=== PATIENT | male | born 1965 | race African-American/Black ===

== ENCOUNTER 2024-06-21 14:24 | Inpatient (IN) | payer OTHER, SELFPAY ==
--- NOTE | ~2024-06-21 | US_ITS ---
EXAMINATION: US abdomen limited DATE: 06/23/2024 08:42 INDICATION: Abnormal liver function tests. TECHNIQUE: Multiple grayscale and Doppler ultrasound images of the abdomen were obtained. COMPARISON: CT abdomen and pelvis 06/21/2024 FINDINGS: The visualized portions of the head, body, and tail of the pancreas are normal. The liver i s normal without focal lesion. There is normal flow in main portal vein. The gallbladder is contracte d and contains sludge. No definite gallstones. There is no sonographic Mtz's sign. The common duct is mildly dilated and measures 7 mm. IMPRESSION: 1. Mildly dilated common duct. Reviewed, dictated and finalized at location A. OP APPLICATION DEVELOPER
--- NOTE | ~2024-06-21 | MR_ITS ---
EXAMINATION: MR MRCP wo/w con/w 3D wo ind DATE: 06/23/2024 17:13 INDICATION: Abdominal pain. TECHNIQUE: Magnetic resonance imaging (MRI) of the abdomen was performed without and with 20 mL Multi Divine intravenous contrast. Sequences included coronal T2-weighted FS FSE, coronal T2-weighted FSE, a xial T1-weighted LAVA, coronal FS FIESTA, axial dual-echo T1-weighted SPGR, coronal lava-FLEX, sagitt al T2-weighted FSE, axial T2-weighted FSE, and axial DWI. Thick-slab T2-weighted FSE images were obta ined for magnetic resonance cholangiopancreatography (MRCP). Maximum intensity projection 3-D reconst ructions of the volumetric data were created by the technologist. Postcontrast sequences included cor onal LAVA-flex and time course of axial T1-weighted LAVA. COMPARISON: CT abdomen and pelvis 06/21/2024, abdomen ultrasound 06/23/2024 FINDINGS: ABDOMEN MRI: There are small pleural effusions. The liver is normal. The gallbladder is contracted. T he spleen is normal. There is edema around the pancreas, consistent with acute interstitial pancreati tis. The adrenal glands are normal. There are cysts in the kidneys measuring up to 3 mm. There are no pathologically enlarged lymph nodes. There is no free intraperitoneal fluid. There are no dilated lo ops of bowel. ABDOMEN MRCP: The common duct is normal and measures 2 mm. No choledocholithiasis. IMPRESSION: 1. Acute interstitial pancreatitis. 2. Small pleural effusions. Reviewed, dictated and finalized at location A. BLOCKER
--- NOTE | ~2024-06-21 | CT_ITS ---
EXAMINATION: CT abdomen pelvis w con DATE: 06/21/2024 16:33 INDICATION: abd pain, elevated LFTs TECHNIQUE: Computed tomography (CT) of the abdomen and pelvis was performed with 100 mL Omnipaque-350 intravenous contrast. Automated exposure control and iterative reconstruction technique were employe d. The dose-length product was 1454.96 mGy-cm. COMPARISON: None. FINDINGS: Lower thorax: Bilateral dependent scar/atelectasis. Liver: Normal. Biliary/Gallbladder: Gallbladder wall hyperemia. The gallbladder is contracted. Mild pericholecystic stranding. No bile duct dilation. Pancreas: Mild peripancreatic fat stranding. No mass or duct dilation. Spleen: Normal. Adrenals:No mass. Kidneys: No suspicious mass, obstructing stone, or hydronephrosis. GI tract: Mild distal esophageal and gastric wall edema. No small or large bowel dilation. Normal mari endix. Mesentery/Peritoneum: No ascites, mass, or free air. Retroperitoneum: No mass. Pelvis: Distended urinary bladder with mild wall thickening. Prostatomegaly. Soft Tissues: Small uncomplicated fat-containing umbilical and left inguinal hernias. Bones: No acute osseous finding. IMPRESSION: Mild esophagitis/gastritis. Suggestion of mild gallbladder inflammatory change, correlate with biliary labs. Mild peripancreatic and upper mesenteric fat stranding, may reflect a component of pancreatitis. Jose Manuel elate with pancreatic labs. Cystitis versus chronic urinary bladder wall thickening from outlet obstruction. Reviewed, dictated and finalized at location K. RVISOR FABRICATION AND ASSEMBLY IMPRESSION: Mild esophagitis/gastritis. Suggestion of mild gallbladder inflammatory change, correlate with biliary labs . Mild peripancreatic and upper mesenteric fat stranding, may reflect a component of pancreatitis. Correlate with pancreatic labs. Cystitis versus chronic urinary bladder wall thickening from outlet obstruction .
[2024-06-21 14:29] VITALS: BP 154/88; PULSE 107; RESP 20; TEMP 37.7; O2SAT 99
[2024-06-21] MEDS: LACTATED RINGERS 1,000 ML 999 ML IV CONT ×2 (14:59)
--- NOTE | 2024-06-21 15:02 | ED.ABDPAIN ---
HPI - Abdominal Pain General Chief Complaint: Abdominal Pain Stated Complaint: I am dehydrated abd pain, dry mouth Time Seen by Provider: 06/21/24 14:41 History of Present Illness HPI narrative: 58-year-old male with a past medical history including hypertension, obstructive sleep apnea, GERD. 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 He presents to the ED with complaints of dry mouth, dehydration, darkening urine. He states he has been having some abdominal bloating and constipation but he took some laxatives yesterday and this has resolved and he is having normal bowel movements now. He has not seen medical attention over a year, no changes to his medications which include lisinopril and Nexium. Denies any drinking, denies any substance use, no smoking. Presently states he just feels dehydrated denies any headache, vision change, nausea, vomiting, abdominal pain, bloating, diarrhea, constipation no dysuria or hematuria. Related Data Allergies Allergy/AdvReac Type Severity Reaction Status Date / Time No Known Allergies Allergy Verified 06/21/24 14:46 Review of Systems Review of Systems: As reviewed above in HPI Exam Narrative: GENERAL: [Well-appearing, well-nourished, and in no acute distress.] HEAD: [Normocephalic, atraumatic.] EYES: [PERRLA and EOMI.] Corneal arcus is noted bilaterally, mild yellowing to the eyes ENT: Nares clear, no rhinorrhea or epistaxis. Mucous membranes moist. NECK: Supple. CHEST: [Clear to auscultation. No respiratory distress.] HEART: [Regular rate and rhythm]. No murmur heard. [Normal peripheral pulses.] ABDOMEN: Protuberant but soft abdomen, tympanic to percussion, [nontender], [No rigidity or guarding] EXTREMITIES: Normal range of motion. [No edema.] SKIN: Warm, dry, no rash. NEURO: [No focal deficits]. Alert and oriented [x3.] PSYCH: [Normal mood and affect.] Course Vital Signs Vital signs: Vital Signs Temperature 37.7 C H 06/21/24 14:29 Pulse Rate 107 H 06/21/24 14:29 Respiratory Rate 20 06/21/24 14:29 Blood Pressure 154/88 H 06/21/24 14:29 Pulse Oximetry 99 06/21/24 14:29 Oxygen Delivery Room Air 06/21/24 14:29 Temperature 37.7 C H 06/21/24 14:29 Pulse Rate 91 06/21/24 18:16 Respiratory Rate 20 06/21/24 18:16 Blood Pressure 146/74 H 06/21/24 18:16 Pulse Oximetry 99 06/21/24 18:16 Oxygen Delivery Room Air 06/21/24 14:29 MDM - Abdominal Pain MDM Narrative Medical decision making narrative: 58-year-old male with history of hypertension, GERD, DOUGLAS. He presents with feeling dehydrated for last several days. Previously had some abdominal distension and bloating from constipation but this resolved yesterday after taking some laxatives. No longer having any abdominal discomfort, nausea vomiting. States he has been having some darkening urine over the last few days and feeling dehydrated with dry mucous membranes and lips. Is slightly tachycardic with a pulse of 107, does have dry membranes on examination, he is afebrile with no significant blood pressure concerns or tachypnea/hypoxia. Protuberant but soft abdomen, corneal arcus noted on examination likely secondary to chronic hyperlipidemia and some yellowing. Differential includes electrolyte derangements, dehydration, intravascular volume depletion, DELVIN, liver injury, cirrhosis, hepatitis. Workup was ordered including CBC, CMP, lipase, urinalysis. Fluid boluses were provided. Laboratory studies showed leukocytosis of 24k, anemia of 12.4 with no baseline. Thrombocytosis of 402. Coagulation studies within normal limits, mild electrolyte deficiency including potassium 2.9, hyponatremia hypochloremia likely secondary dehydration. Normal BUN and creatinine, normal glucose, LFTs with derangements including elevated ALT of 102, alk-phos 324, lipase 3115. Bilirubin is 6.5 with no baseline. Urinalysis with ketones, blood and bilirubin but no bacteria, red blood cells and trace white cells in the no convincing signs of urinary infection, likely bilirubin elevation from his circulation. Hepatitis panel was ordered this time and negative. COVID flu RSV swabs also negative. CT scan was ordered this time to evaluate for any possible causes such as bile duct dilatation, pancreatic masses, strictures or any other process. CT findings show mild esophagitis/gastritis, mild gallbladder inflammatory changes such as hyperemia on the wall but no distension, minimal pericholecystic stranding but no bile duct dilatation. Pancreas with mild peripancreatic fat stranding likely secondary to pancreatitis. Cystitis is seen. Patient was started on Zosyn to cover for possible infectious versus inflammatory process given the elevated white count. No overt signs of cholecystitis. I discussed the case with the on-call textile science technician Dr. Mcmahan. Recommendations at this time to rule out any kind of masses, strictures or other possible occlusive process with an endoscopic ultrasound which is not available here in this facility. Recommendations to transfer to outside hospital. Patient will be started on maintenance fluids and I discussed with him potential transfer process. Patient is comfortable with transfer. I spoke to the [facility] transfer line, currently awaiting consultation with their GI team for possible transfer. Spoke to Dr. Meza from [facility] who thinks the patient would benefit from endoscopic ultrasound and transfer. Recommendations to transfer to the general medicine service. Spoke to Dr. Sands from the medicine service at [facility] and we went over the patient's care together. Patient was accepted as a direct transfer to a general medicine floor at this time pending bed availability. Paperwork was filled out, patient was placed on maintenance IV fluids and antibiotics and will remain in the emergency department pending transfer process. Patient was made aware of this and comfortable with the plan of care. P.r.n. medications are placed. Medical Records Attestation: I reviewed the patient's medical records. Lab Data Attestation: I reviewed the patient's lab results. 06/21/24 14:54 06/21/24 14:54 Labs: Lab Results 06/21/24 06/21/24 06/21/24 Range/Units 14:54 14:54 15:47 WBC 21.4 H (4.5-10.0) K/mm3 RBC 5.79 (4.6-6.20) M/mm3 Hgb 12.4 L (14.0-18.0) g/dL Hct 36.7 L (42.0-52.0) % MCV 63.4 L (80-100) fl MCH 21.4 L (26-34) pg MCHC 33.8 (32-36) g/dl RDW 14.8 H (11.5-14.5) % Plt Count 402 H (150-375) k/mm3 MPV 10.1 (7.4-10.4) fl Immature Gran % (Auto) 1.1 H (0-0.5) % Neut % (Auto) 84.5 H (45.5-73.1) % Lymph % (Auto) 6.5 L (18.3-44.2) % [place] % (Auto) 7.5 (2.6-8.5) % Eos % (Auto) 0.2 (0-4.4) % Baso % (Auto) 0.2 (0.2-1.2) % Lymph # (Auto) 1.38 (0.9-3.2) K/mm3 [place] # (Auto) 1.6 H (0.1-0.6) K/mm3 Eos # (Auto) 0.0 (0-0.3) K/mm3 Baso # (Auto) 0.1 (0.0-0.1) K/mm3 Abs Immat Gran (auto) 0.24 H (0.00-0.031) K/mm3 Absolute Neuts (auto) 18.1 H (1.3-6.7) K/mm3 Absolute Nucleated RBC 0.000 (0.0-0.012) K/mm3 Nucleated RBC % 0.0 (0.0-0.2) % Platelet Estimate Increased (Adequate) Microcytosis 1+ (NORMAL) Target Cells 2+ Schistocytes None seen PT 14.2 (11.1-14.7) Seconds INR 1.1 APTT 33.9 (22.3-36.8) Seconds Sodium 134 L (137-145) mmol/L Potassium 2.9 L (3.4-5.0) mmol/L Chloride 93 L (98-107) mmol/L Carbon Dioxide 26 (22-30) mmol/L Anion Gap 15 H (4-12) mmol/L BUN 12 (9-20) mg/dL Creatinine 0.85 (0.7-1.3) mg/dL Estim Creat Clear Calc 109 ml/min Estimated GFR > 60 (59 - ) Glucose 110 (65-110) mg/dL Calcium 8.5 (8.4-10.2) mg/dL Magnesium 2.7 H Cancelled (1.6-2.3) mg/dL Total Bilirubin 6.5 H (0.2-1.3) mg/dL AST 56 (17-59) U/L ALT 102 H (6-50) U/L Alkaline Phosphatase 324 H (38-126) U/L Total Protein 8.0 (6.3-8.2) g/dL Albumin 3.6 (3.5-5.1) g/dL Triglycerides 121 (<150) mg/dL Lipase 3115 H (23-300) U/L Urine Color Dark yellow (Yellow) Urine Appearance Clear (Clear) Urine pH 7.0 (5.0-9.0) Ur Specific Chambers 1.016 (1.001-1.035) Urine Protein 2+ H (Negative) mg/dL Urine Glucose (UA) Negative (Negative) mg/dL Urine Ketones 1+ H (Negative) mg/dL Ur Blood (Man) 2+ H (Negative) Urine Nitrate Negative (Negative) Urine Bilirubin 3+ H (Negative) Urine Urobilinogen 1.0 (<2.0) mg/dL Add Ur Microanalysis Reviewed Leukocyte Esterase Rfl 1+ H (Negative) CHHAYA/UL Urine RBC 51-100 H (0-2) /hpf Urine WBC 11-20 H (0-3) /hpf Ur Squamous Epith Cells Moderate (Few) /hpf Urine Bacteria None seen /hpf Urine Casts 0-2 Hepatitis A IgM Ab Negative (Negative) Hep Bs Antigen Negative (Negative) Hep B Core IgM Ab Negative (Negative) Hepatitis C Ab Screen Negative (Negative) Influenza A (RT-PCR) Negative (Negative) Influenza B (RT-PCR) Negative (Negative) RSV (RT-PCR) Negative (Negative) SARS-CoV-2 RNA (RT-PCR) Negative (Negative) Imaging Data Attestation: I personally reviewed and interpreted this imaging study as follows: My impression: Impressions Abdomen/Pelvis CT 06/21/24 16:35 IMPRESSION: Mild esophagitis/gastritis. Suggestion of mild gallbladder inflammatory change, correlate with biliary labs. Mild peripancreatic and upper mesenteric fat stranding, may reflect a component of pancreatitis. Correlate with pancreatic labs. Cystitis versus chronic urinary bladder wall thickening from outlet obstruction. Radiologist's impression: ITS Impressions Abdomen/Pelvis CT 06/21/24 16:35 IMPRESSION: Mild esophagitis/gastritis. Suggestion of mild gallbladder inflammatory change, correlate with biliary labs. Mild peripancreatic and upper mesenteric fat stranding, may reflect a component of pancreatitis. Correlate with pancreatic labs. Cystitis versus chronic urinary bladder wall thickening from outlet obstruction. Critical Care Time Critical Care Time Critical Care Time: Yes Total Critical Care Time: 76 Discharge Plan Discharge Clinical Impression: Pancreatitis, Elevated LFTs, High bilirubin, Abdominal pain Patient Disposition: Acute Care Hospital Condition: Stable Instructions: Antibiotic Form Patient Language: Luxembourgish Follow-up/Referrals: PHYSICIAN,LAUNDRY PRESSER [Primary Care Provider] - Time of Disposition: 18:24
[2024-06-21 15:07] LABS: Basophils Absolute Auto 0.1 K/mm3 (0.0-0.1); Basophils Percent Auto 0.2 % (0.2-1.2); Eosinophils Percent Auto 0.2 % (0-4.4); Hematocrit 36.7 % (42.0-52.0); Hemoglobin 12.4 g/dL (14.0-18.0); Immature Granulocyte Absolute 0.24 K/mm3 (0.00-0.031); Immature Granulocyte Percent A 1.1 % (0-0.5); Lymphocytes Absolute Auto 1.38 K/mm3 (0.9-3.2); Lymphocytes Percent Auto 6.5 % (18.3-44.2); Mean Corpuscular HGB Conc 33.8 g/dl (32-36); Mean Corpuscular Hemoglobin 21.4 pg (26-34); Mean Corpuscular Volume 63.4 fl (80-100); Mean Platelet Volume 10.1 fl (7.4-10.4); Monocytes Absolute Auto 1.6 K/mm3 (0.1-0.6); Monocytes Percent Auto 7.5 % (2.6-8.5); Neutrophils Absolute Auto 18.1 K/mm3 (1.3-6.7); Neutrophils Percent Auto 84.5 % (45.5-73.1); Platelet Count Result 402 k/mm3 (150-375); Red Blood Count 5.79 M/mm3 (4.6-6.20); Red Cell Distribution Width 14.8 % (11.5-14.5); White Blood Count 21.4 K/mm3 (4.5-10.0)
[2024-06-21 15:22] LABS: Platelet Estimate Increased (Adequate)
[2024-06-21 15:23] LABS: Microcytosis 1+ (NORMAL); Schistocytes None Seen; Target Cells 2+
[2024-06-21 15:29] LABS: Alanine Aminotransferase 102 U/L (6-50); Albumin Level 3.6 g/dL (3.5-5.1); Alkaline Phosphatase 324 U/L (38-126); Anion Gap 15 mmol/L (4-12); Aspartate Amino Transferase 56 U/L (17-59); Bilirubin,Total 6.5 mg/dL (0.2-1.3); Blood Urea Nitrogen 12 mg/dL (9-20); Calcium 8.5 mg/dL (8.4-10.2); Carbon Dioxide 26 mmol/L (22-30); Chloride 93 mmol/L (98-107); Estimated CRCL calculation 109 ml/min; Estimated Glomerular Filt Rate > 60; Glucose 110 mg/dL (65-110); Magnesium 2.7 mg/dL (1.6-2.3); Potassium 2.9 mmol/L (3.4-5.0); Sodium 134 mmol/L (137-145)
[2024-06-21 15:36] LABS: Lipase 3115 U/L (23-300)
[2024-06-21 15:45] LABS: Influenza A QL RT-PCR Negative (Negative); Influenza B QL RT-PCR Negative (Negative); RSV RNA, RT-PCR Negative (Negative); SARS-CoV-2 RNA PCR Negative (Negative)
[2024-06-21 16:05] LABS: Add Urine Microscopic? YES; Appearance Urine Clear (Clear); Bacteria Urine None Seen /hpf; Bilirubin Urine 3+ (Negative); Blood Urine 2+ (Negative); Color Urine Dark Yellow (Yellow); Glucose Urine UA Negative (Negative); Ketones Urine 1+ mg/dL (Negative); Leukocyte Esterase Ur 1+ LEU/UL (Negative); Need Manual Microscopic Reviewed; Nitrate Urine Negative (Negative); Non Pathogenic Casts 0-2; Protein Urine 2+ mg/dL (Negative); RBC Urine 51-100 /hpf (0-2); Specific Grav Ur 1.016 (1.001-1.035); Squamous Epithelial Cell Urine Moderate /hpf (Few)
[2024-06-21 16:17] LABS: INR 1.1; Prothrombin Time 14.2 Seconds (11.1-14.7)
[2024-06-21 16:18] LABS: Partial Thromboplastin Time 33.9 Seconds (22.3-36.8)
[2024-06-21 16:43] VITALS: BP 146/85; PULSE 92; RESP 18; O2SAT 99
[2024-06-21 16:44] LABS: Hepatitis B Surface Antigen Negative (Negative)
[2024-06-21 16:50] LABS: HAV RESULT Negative (Negative); Hepatitis B Core IgM Result Negative (Negative)
[2024-06-21 17:02] LABS: Hepatitis C Virus Antibody Negative (Negative)
--- NOTE | 2024-06-21 17:32 | PC.NURSE ---
Attempted X3 to obtain second set of blood cultures with no luck. ED charge nurse gave permission to call phlebotomy.
[2024-06-21] MEDS: PIPERACILLIN/TAZ 4.5G/NS 100ML 4.5 GM/100 ML BAG IVPB (17:56)
[2024-06-21 18:15] LABS: Triglycerides 121 mg/dL (<150)
[2024-06-21 18:16] VITALS: BP 146/74; PULSE 91; RESP 20; O2SAT 99
[2024-06-21] MEDS: LACTATED RINGERS 1,000 ML 200 ML IV CONT (18:17)
[2024-06-21] MEDS: MORPHINE SULFATE (*CRX) 4 MG/ML INJ IV PUSH (18:17)
[2024-06-21] MEDS: POTASSIUM CHLORIDE INJ 40 MEQ in SODIUM CHLORIDE 0.9% IV 500 ML 130 MEQ IVPB (19:09)
[2024-06-21 21:48] VITALS: PULSE 98; RESP 16; O2SAT 100
[2024-06-21 21:53] VITALS: BP 146/74; PULSE 94; RESP 14; O2SAT 100
[2024-06-21 22:02] VITALS: BP 152/75; PULSE 96; RESP 20; O2SAT 100
[2024-06-22] VITALS (10 sets, daily range): BP systolic 101–164; BP diastolic 71–86; PULSE 80–98; RESP 13–23; TEMP 37; O2SAT 93–100; BMI 36.6
[2024-06-22 05:45] LABS: Basophils Absolute Auto 0.1 K/mm3 (0.0-0.1); Basophils Percent Auto 0.3 % (0.2-1.2); Eosinophils Absolute Auto 0.1 K/mm3 (0-0.3); Eosinophils Percent Auto 0.3 % (0-4.4); Hemoglobin 11.3 g/dL (14.0-18.0); Immature Granulocyte Absolute 0.25 K/mm3 (0.00-0.031); Immature Granulocyte Percent A 1.3 % (0-0.5); Lymphocytes Absolute Auto 1.25 K/mm3 (0.9-3.2); Lymphocytes Percent Auto 6.5 % (18.3-44.2); Mean Corpuscular HGB Conc 33.2 g/dl (32-36); Mean Corpuscular Hemoglobin 21.6 pg (26-34); Mean Corpuscular Volume 64.9 fl (80-100); Mean Platelet Volume 9.7 fl (7.4-10.4); Monocytes Absolute Auto 1.5 K/mm3 (0.1-0.6); Neutrophils Absolute Auto 16.1 K/mm3 (1.3-6.7); Neutrophils Percent Auto 83.6 % (45.5-73.1); Platelet Count Result 339 k/mm3 (150-375); Red Blood Count 5.24 M/mm3 (4.6-6.20); Red Cell Distribution Width 14.8 % (11.5-14.5); White Blood Count 19.2 K/mm3 (4.5-10.0)
[2024-06-22 05:56] LABS: Alanine Aminotransferase 89 U/L (6-50); Albumin Level 3.1 g/dL (3.5-5.1); Alkaline Phosphatase 255 U/L (38-126); Anion Gap 9 mmol/L (4-12); Aspartate Amino Transferase 54 U/L (17-59); Bilirubin,Total 6.7 mg/dL (0.2-1.3); Blood Urea Nitrogen 10 mg/dL (9-20); Calcium 8.2 mg/dL (8.4-10.2); Carbon Dioxide 29 mmol/L (22-30); Chloride 98 mmol/L (98-107); Estimated CRCL calculation 103 ml/min; Estimated Glomerular Filt Rate > 60; Glucose 99 mg/dL (65-110); Lipase 1255 U/L (23-300); Potassium 3.5 mmol/L (3.4-5.0); Sodium 136 mmol/L (137-145)
[2024-06-22 06:38] LABS: Anisocytosis 1+; Platelet Estimate Adequate (Adequate); Schistocytes None Seen; Target Cells 2+
--- NOTE | 2024-06-22 14:27 | ED.PROGRESS ---
Subjective Date/time seen: 06/22/24 14:27 Interval history: 58-year-old male here boarded to the ER with concern for pancreatitis likely secondary to potential pancreatic stricture or underlying mass based on his liver function panel elevations. [facility] Latest update this morning was that they are still pending a bed and he is on the wait list. Review of Systems Review of Systems Endorses abdominal cramping much improved from yesterday, no nausea, vomiting, diarrhea constipation. No urinary complaints. No chest pain or shortness of breath. Exam Narrative GENERAL: [Well-appearing, well-nourished, and in no acute distress.] HEAD: [Normocephalic, atraumatic.] EYES: [PERRLA and EOMI.] Corneal arcus is noted bilaterally, mild yellowing to the eyes ENT: Nares clear, no rhinorrhea or epistaxis. Mucous membranes moist. NECK: Supple. CHEST: [Clear to auscultation. No respiratory distress.] HEART: [Regular rate and rhythm]. No murmur heard. [Normal peripheral pulses.] ABDOMEN: Protuberant but soft abdomen, tympanic to percussion, [nontender], [No rigidity or guarding] EXTREMITIES: Normal range of motion. [No edema.] SKIN: Warm, dry, no rash. NEURO: [No focal deficits]. Alert and oriented [x3.] PSYCH: [Normal mood and affect.] Objective Data Vital Signs Vital Signs: Vital Signs - 24 hr 06/21/24 18:16 06/21/24 21:48 06/21/24 21:53 Pulse Rate 91 98 94 Respiratory Rate 20 16 14 Blood Pressure 146/74 H 146/74 H Pulse Oximetry 99 100 100 06/21/24 22:02 06/22/24 00:02 06/22/24 02:02 Pulse Rate 96 92 95 Respiratory Rate 20 21 H 18 Blood Pressure 152/75 H 164/83 H 141/73 H Pulse Oximetry 100 98 100 06/22/24 04:00 06/22/24 06:55 06/22/24 09:28 Pulse Rate 88 80 98 Respiratory Rate 18 20 22 H Blood Pressure 101/71 140/79 154/75 H Pulse Oximetry 100 99 93 06/22/24 13:38 06/22/24 16:08 Pulse Rate 93 93 Respiratory Rate 23 H 13 Blood Pressure 146/86 H 163/75 H Pulse Oximetry 100 100 Intake/Output Intake/Output: Intake & Output 06/19/24 06/20/24 06/21/24 06/22/24 23:59 23:59 23:59 23:59 Intake Total 2620 1000 Output Total 450 Balance 2620 550 Meds/Results Medications: Active Medications Generic Name Dose Route Start Last Admin Trade Name Freq PRN Reason Stop Dose Admin Morphine Sulfate 4 mg 06/21/24 17:56 06/22/24 00:00 Morphine Sulfate (*Crx) 4 Mg/Ml Inj IV PUSH 4 mg Q4H PRN Administration Pain Radiology Results: ITS Impressions Abdomen/Pelvis CT 06/21/24 16:35 IMPRESSION: Mild esophagitis/gastritis. Suggestion of mild gallbladder inflammatory change, correlate with biliary labs. Mild peripancreatic and upper mesenteric fat stranding, may reflect a component of pancreatitis. Correlate with pancreatic labs. Cystitis versus chronic urinary bladder wall thickening from outlet obstruction. Labs Labs: Laboratory Results - last 24 hr 06/21/24 06/22/24 14:54 05:39 WBC 19.2 H RBC 5.24 Hgb 11.3 L Hct 34.0 L MCV 64.9 L MCH 21.6 L MCHC 33.2 RDW 14.8 H Plt Count 339 MPV 9.7 Immature Gran % (Auto) 1.3 H Neut % (Auto) 83.6 H Lymph % (Auto) 6.5 L [place] % (Auto) 8.0 Eos % (Auto) 0.3 Baso % (Auto) 0.3 Lymph # (Auto) 1.25 [place] # (Auto) 1.5 H Eos # (Auto) 0.1 Baso # (Auto) 0.1 Abs Immat Gran (auto) 0.25 H Absolute Neuts (auto) 16.1 H Absolute Nucleated RBC 0.000 Nucleated RBC % 0.0 Platelet Estimate Adequate Anisocytosis 1+ Target Cells 2+ Schistocytes None seen Sodium 136 L Potassium 3.5 Chloride 98 Carbon Dioxide 29 Anion Gap 9 BUN 10 Creatinine 0.90 Estim Creat Clear Calc 103 Estimated GFR > 60 Glucose 99 Calcium 8.2 L Total Bilirubin 6.7 H AST 54 ALT 89 H Alkaline Phosphatase 255 H Total Protein 7.0 Albumin 3.1 L Triglycerides 121 Lipase 1255 H Progress Note: A&P Assessment and Plan (1) Pancreatitis: Code(s): K85.90 - Acute pancreatitis without necrosis or infection, unspecified Status: Acute (2) Elevated LFTs: Code(s): R79.89 - Other specified abnormal findings of blood chemistry Status: Acute (3) High bilirubin: Code(s): R17 - Unspecified jaundice Status: Acute (4) Abdominal pain: Code(s): R10.9 - Unspecified abdominal pain Status: Acute Plan 58-year-old male boarded to the ER for pancreatitis with suspected pancreatic lesion or obstructive mass/stone in the pancreatic/ductal system near the gallbladder. Presently on antibiotics with Zosyn, maintenance IV fluids for pancreatitis, as needed pain control. Do clinically doing better this morning, vital signs have been stable, repeat examination shows no interval change. Laboratory studies are down trending with decreased leukocytosis and lipase elevation today. LFTs remain elevated. Given the improvement in pain and LFTs, patient was expressing desire for food. Change him from NPO to advance diet as tolerated. Patient tolerated oral intake without difficulty. Discussed the case with the hospitalist team currently being covered by the midlevel provider Becka. Patient will be accepted as an admission here pending transfer to available beds at [facility]. Patient will be admitted to a medical-surgical bed. Time Spent With Patient Time with patient: 15 - 25 minutes
--- NOTE | 2024-06-22 15:26 | PC.NURSE ---
pt requesting food. per EDP Vane and RN Ira, pt is able to start a liquid diet and advance as tolerated. pt given jello and white soda.
--- NOTE | 2024-06-22 15:28 | PC.NURSE ---
Transfer center called for update on pt condition. No bed at this time.
--- NOTE | 2024-06-22 17:12 | PC.NURSE ---
pt c/o pain given PRN Morphine will reassess later
--- NOTE | 2024-06-22 18:01 | PC.NURSE ---
spoke with [facility] transfer center regarding pt waitlist status. at this time, [facility] hospital is at capacity and does not have an updated wait time for the bed. EDP Torossian aware of update.
--- NOTE | 2024-06-22 18:15 | PM.IMHP ---
H&P: HPI History of Present Illness Date/Time: 06/22/24 18:15 Chief Complaint: Abdominal pain and dehydration. Narrative: This is a very pleasant 58-year-old male with hypertension, obstructive sleep apnea, and gastroesophageal reflux disease who presented to the emergency department via private vehicle yesterday afternoon with complaints of abdominal pain and dehydration. The patient provides the following history. He is an [id number] dedicated intermodal truck driver and is from [place]. Over the course of the last 4 days he has developed diffuse upper abdominal pain which has been pretty constant. It is aching in nature although is occasionally sharp and stabbing. The pain does not radiate and he has not noticed any significant aggravating or alleviating factors. His appetite has been poor and he endorses nausea and occasional dry heaves. His abdomen feels a bit bloated and he reports belching though that is not necessarily unusual for him. He has also been having some sweats at night. Aleve, Pepto-Bismol, and Ex-Lax have not helped significantly. Last bowel movement was a couple of days ago and it was formed but was dark green in color. He has noticed the whites of his eyes appear to be yellow. He has never had similar symptoms. He denies fever, weight loss, pruritus, hematemesis, melena, acholic stools, and hematochezia. He has no known history of gastritis, peptic ulcers, gallbladder disease, or pancreatitis. At the time my evaluation he is resting comfortably and his pain is well controlled on p.r.n. morphine. He had liquids this evening and seems to be tolerating that well without an increase in pain. In the ED: Vital signs on arrival include a temperature of 99.8?, blood pressure 154/88, pulse 107, respiratory rate 20, SpO2 99% on room air. Labs were significant for WBC count of 21.4, hemoglobin 12.4, hematocrit 36.7%, MCV 63.4, platelet 402, PT 14.2, INR 1.1, sodium 134, potassium 2.9, chloride 93, anion gap 15, creatinine 0.80, glucose 110, magnesium 2.7, total bilirubin 6.5, AST 56, ALT 102, alkaline phosphatase 324, lipase 3115. Urinalysis was positive for 2+ protein, 1+ ketones, 2+ blood, 3+ bilirubin, 1+ leukocyte esterase, 51 to 100 RBC, and 11 to 20 WBC. Hepatitis screen was negative. Respiratory panel was negative. CT of the abdomen and pelvis showed mild esophagitis/gastritis, suggestion of mild gallbladder inflammatory change, mild peripancreatic and upper mesenteric fat stranding which may reflect a component of pancreatitis, and cystitis versus chronic urinary bladder wall thickening from outlet obstruction. ED physician spoke with the on-call childcare teacher to thinks the patient would benefit endoscopic ultrasound and recommended transfer to tertiary care facility. He was accepted by Dr. Sands of the medicine service at [facility]. He has now been in the emergency department for over 24 hours and no bed is yet available and he is being admitted in this setting for further treatment and workup pending transfer. Review of Systems Review of Systems: 12 systems were reviewed and are negative except for as per HPI. [facility] Past Medical History Medical History (Updated 06/22/24 @ 22:32 by Becka Vargas PA-C) Gastroesophageal reflux disease Eczema Obstructive sleep apnea Hypertension Surgical History Surgical History (Updated 06/22/24 @ 22:28 by Becka Vargas PA-C) No history of previous surgery Family History Family History (Updated 06/22/24 @ 22:28 by Becka Vargas PA-C) Father Hypertension Mother Hypertension Social History Social History (Updated 06/22/24 @ 22:29 by Becka Vargas PA-C) Social History: Surrogate medical decision maker: Dr. Christianne San, sister ([phone]). Code status: Full code. Smoking status: Never smoker Alcohol intake: never Substance use: never Substance use type: does not use Do You Feel Safe in your Home?: Yes Lack of Transportation: No Lack of Food: Never True Current Housing: I Have Housing Concerned About Future Housing: No Difficulty Paying Gas/Electric Bills: No Difficulty Paying for Meds: No Currently Unemployed: No Education: High School Diploma/GED Difficulty w/ Childcare or Family Care: No Spiritual care concerns: No Meds Home Medications and Allergies Home Medications ?Medication ?Instructions ?Recorded ?Confirmed ?Type lisinopril 20 1 tablet PO DAILY 06/22/24 06/22/24 History mg-hydrochlorothiazide 12.5 mg tablet multivitamin 1 tablet PO DAILY 06/22/24 06/22/24 History Allergies Allergy/AdvReac Type Severity Reaction Status Date / Time No Known Allergies Allergy Verified 06/21/24 14:46 Vital Signs Vital Signs - 24 hr 06/21/24 18:16 06/21/24 21:48 06/21/24 21:53 Pulse Rate 91 98 94 Respiratory Rate 20 16 14 Blood Pressure 146/74 H 146/74 H Pulse Oximetry 99 100 100 06/21/24 22:02 06/22/24 00:02 06/22/24 02:02 Pulse Rate 96 92 95 Respiratory Rate 20 21 H 18 Blood Pressure 152/75 H 164/83 H 141/73 H Pulse Oximetry 100 98 100 06/22/24 04:00 06/22/24 06:55 06/22/24 09:28 Pulse Rate 88 80 98 Respiratory Rate 18 20 22 H Blood Pressure 101/71 140/79 154/75 H Pulse Oximetry 100 99 93 06/22/24 13:38 06/22/24 16:08 Pulse Rate 93 93 Respiratory Rate 23 H 13 Blood Pressure 146/86 H 163/75 H Pulse Oximetry 100 100 Exam Narrative: General: Nontoxic-appearing male in the semi-Silverio position in bed in no acute distress. Weight: 122.3 kg. BMI: 36.6. HEENT: PERRL, EOMI. Mild scleral icterus. Tacky mucous membranes. Neck: Supple. Exam limited due to neck circumference. Respiratory: Lungs are clear to auscultation bilaterally. Cardiovascular: Regular rate and rhythm with S1-S2. Do delete that Gastrointestinal: Abdomen is soft, obese, and nondistended with positive bowel sounds. He is tender to palpation in the upper abdomen, most notably in the epigastric region. No guarding or rebound tenderness. Negative Mtz sign. Skin: Warm and dry. Extremities: No cyanosis, clubbing, or significant edema. Radial and pedal pulses intact. Neurological: Alert. Cranial nerves 2-12 are grossly intact. No gross focal deficits to casual conversation. Psychiatric: Pleasant and cooperative with normal mood and affect. Judgment and insight intact. H&P: Results Labs Labs: Short CBC 06/22/24 Range/Units 05:39 WBC 19.2 H (4.5-10.0) K/mm3 Hgb 11.3 L (14.0-18.0) g/dL Hct 34.0 L (42.0-52.0) % Plt Count 339 (150-375) k/mm3 BMP 06/22/24 05:39 Sodium 136 L Potassium 3.5 Chloride 98 Carbon Dioxide 29 BUN 10 Creatinine 0.90 Glucose 99 Calcium 8.2 L Liver Function 06/22/24 Range/Units 05:39 Total Bilirubin 6.7 H (0.2-1.3) mg/dL AST 54 (17-59) U/L ALT 89 H (6-50) U/L Alkaline Phosphatase 255 H (38-126) U/L Albumin 3.1 L (3.5-5.1) g/dL Imaging Abdomen/Pelvis CT 06/21/24 16:35 IMPRESSION: Mild esophagitis/gastritis. Suggestion of mild gallbladder inflammatory change, correlate with biliary labs. Mild peripancreatic and upper mesenteric fat stranding, may reflect a component of pancreatitis. Correlate with pancreatic labs. Cystitis versus chronic urinary bladder wall thickening from outlet obstruction. Assessment and Plan Assessment and plan (1) Pancreatitis: Code(s): K85.90 - Acute pancreatitis without necrosis or infection, unspecified Status: Acute (2) Dehydration: Code(s): E86.0 - Dehydration Status: Acute (3) Elevated LFTs: Code(s): R79.89 - Other specified abnormal findings of blood chemistry Status: Acute (4) Esophagitis with gastritis: Code(s): K29.70 - Gastritis, unspecified, without bleeding; K20.90 - Esophagitis, unspecified without bleeding Status: Acute (5) Leukocytosis: Code(s): D72.829 - Elevated white blood cell count, unspecified Status: Acute (6) Hypertension: Code(s): I10 - Essential (primary) hypertension Status: Acute Plan The patient presented to the emergency department yesterday for evaluation of abdominal pain over the last 4 days as detailed in HPI. Labs, imaging, EKG, and all reports were personally reviewed. Initial workup is concerning for pancreatitis with elevated lipase and mild peripancreatic and upper mesenteric fat stranding seen on CT. He has been on bowel rest for the last 24 hours and his pain is improving with down trending lipase. He will be NPO tonight for probable further testing tomorrow but can consider a trial of clear liquids tomorrow afternoon. CT scan also shows findings of mild esophagitis/gastritis and most of his tenderness seems to be in the epigastric region and he has been started on pantoprazole. Suggestions of mild gallbladder inflammatory change were also seen on CT scan and right upper quadrant ultrasound has been ordered. He has been started on empiric Zosyn given low-grade fever on arrival and WBC count of 21.4 although clinically his exam findings are not consistent with cholecystitis and cholangitis seems less likely. Transfer was initiated to [facility] for endoscopic ultrasound however that facilities at full capacity thus will ask GI to follow him while he is here for further recommendations. Continue supportive care with IV fluid rehydration. Antiemetics and analgesics are available as needed. Blood pressures have been a bit high though he did not receive his antihypertensives today. Findings and treatment plan were discussed with the patient and his sister, Dr. Christianne San, who is a physician in [place], via phone with the patient's permission. Questions were solicited and answered to satisfaction. The patient's medical management will be taken over by the hospitalist team in a.m. Quality VTE Prophylaxis VTE prophylaxis: pharmacologic ordered Hospitalist [facility] Advance Care Plan I have confirmed that the patient's Advanced Care Plan is present, code status is documented, or surrogate decision maker is listed in patient medical record.: Yes Medication Reconciliation I have utilized all available resources to obtain, update and review the patients current medications (includes all prescriptions, OTC, herbals, cannabis, and nutritional supplements).: Yes
--- NOTE | 2024-06-22 19:54 | ADMGEN ---
This patient, Tam San, was admitted to Medical Room 261-01. Patient/family oriented to hospital policies and general routines including ID bracelet, bed and alarms, visiting hours, pain management, procedures, bathroom and other care routines, personal items, smoking policy, room service/diet, and visiting hours. Information on how to activate the Rapid Response Team has been discussed. Patient/Family are encouraged to report perceived risks to care and to ask questions if they do not understand what they are told or what they should do.
[2024-06-22] MEDS: ONDANSETRON INJ 4 MG/2 ML VIAL IV PUSH (20:35)
[2024-06-22] MEDS: MORPHINE SULFATE (*CRX) 4 MG/ML INJ IV PUSH ×3 (20:35→23:46)
[2024-06-22 23:24] LABS: Alanine Aminotransferase 105 U/L (6-50); Albumin Level 3.4 g/dL (3.5-5.1); Alkaline Phosphatase 319 U/L (38-126); Anion Gap 12 mmol/L (4-12); Aspartate Amino Transferase 75 U/L (17-59); Bilirubin,Total 8.8 mg/dL (0.2-1.3); Blood Urea Nitrogen 11 mg/dL (9-20); Calcium 8.6 mg/dL (8.4-10.2); Carbon Dioxide 28 mmol/L (22-30); Chloride 98 mmol/L (98-107); Estimated CRCL calculation 113 ml/min; Estimated Glomerular Filt Rate > 60; Glucose 110 mg/dL (65-110); Magnesium 2.7 mg/dL (1.6-2.3); Potassium 3.3 mmol/L (3.4-5.0); Sodium 138 mmol/L (137-145)
[2024-06-22 23:25] LABS: Ammonia < 9 umol/L (9-30)
[2024-06-22 23:40] LABS: Iron 56 ug/dL (49-181)
[2024-06-22] MEDS: LACTATED RINGERS 1,000 ML 150 ML IV CONT (23:43)
[2024-06-22 23:50] LABS: Percent Iron Saturation 32 % (20-50)
[2024-06-22] MEDS: POTASSIUM CHLORIDE 20 MEQ ER TABLET PO (23:51)
[2024-06-22 23:55] LABS: Procalcitonin 1.9 ng/mL
[2024-06-23] VITALS (7 sets, daily range): BP systolic 142–154; BP diastolic 74–80; PULSE 87–101; RESP 17–20; TEMP 36.5–37.1; O2SAT 95–97
[2024-06-23 00:13] LABS: CRP 31.2 mg/dL (<1.0)
[2024-06-23] MEDS: PIPERACILLN/TAZ 3.375GM/NS50ML 3.375 GM/50 ML BAG IVPB ×5 (00:16→23:30)
[2024-06-23 00:35] LABS: Bilirubin Direct 4.5 mg/dL (0-0.3); Bilirubin Indirect 1.2 mg/dL (0-1.1)
--- NOTE | 2024-06-23 02:43 | PC.NURSE ---
Dr. Booth notified severe sepsis result. Patient vital signs are stable 142/75, P 101, R 20, T 98.3F, 96%. No additional orders at this time. Pt sleep in bed with BIPAP on, call light within reach and bed in lowest position. Will continue to monitor progress.
[2024-06-23] MEDS: MORPHINE SULFATE (*CRX) 4 MG/ML INJ IV PUSH ×5 (03:08→23:32)
[2024-06-23 05:30] LABS: Folic Acid 9.1 ng/mL (2.76->20)
[2024-06-23 05:58] LABS: Hematocrit 33.8 % (42.0-52.0); Hemoglobin 11.3 g/dL (14.0-18.0); Mean Corpuscular HGB Conc 33.4 g/dl (32-36); Mean Corpuscular Hemoglobin 21.1 pg (26-34); Mean Corpuscular Volume 63.2 fl (80-100); Mean Platelet Volume 10.2 fl (7.4-10.4); Platelet Count Result 418 k/mm3 (150-375); Red Blood Count 5.35 M/mm3 (4.6-6.20); Red Cell Distribution Width 14.6 % (11.5-14.5); White Blood Count 22.3 K/mm3 (4.5-10.0)
[2024-06-23 06:10] LABS: Alanine Aminotransferase 96 U/L (6-50); Albumin Level 3.2 g/dL (3.5-5.1); Alkaline Phosphatase 299 U/L (38-126); Aspartate Amino Transferase 66 U/L (17-59); Bilirubin,Total 8.1 mg/dL (0.2-1.3); Blood Urea Nitrogen 11 mg/dL (9-20); Calcium 8.3 mg/dL (8.4-10.2); Carbon Dioxide 27 mmol/L (22-30); Estimated CRCL calculation 114 ml/min; Estimated Glomerular Filt Rate > 60; Glucose 99 mg/dL (65-110); Lipase 377 U/L (23-300)
[2024-06-23 06:17] LABS: Anion Gap 10 mmol/L (4-12); Chloride 100 mmol/L (98-107); Potassium 3.5 mmol/L (3.4-5.0); Sodium 137 mmol/L (137-145)
--- NOTE | 2024-06-23 07:30 | PM.IMPN ---
Progress Note: A&P Assessment and Plan (1) SIRS (systemic inflammatory response syndrome): Code(s): R65.10 - Systemic inflammatory response syndrome (SIRS) of non-infectious origin without acute organ dysfunction Status: Acute Assessment and Plan: Meets SIRS criteria: leukocytosis, elevated liver enzymes, chills with low grade fever - LR 150 ml/hr IV - blood cultures drawn on 06/21: NGTD - Antibiotics: Zosyn 3.375 mg every 6 hours (2) Pancreatitis: Code(s): K85.90 - Acute pancreatitis without necrosis or infection, unspecified Status: Acute Assessment and Plan: - Lipase 3115 on admission, now 377 on am labs - Tot bili 8.1, AST 66, ALT 96, Alk phos 299 - GGT pending - Blood cultures obtained on 06/21: preliminary - NGTD - CT abdomen/pelvis: Mild esophagitis/gastritis. Suggestion of mild gallbladder inflammatory change, correlate with biliary labs. Mild peripancreatic and upper mesenteric fat stranding, may reflect a component of pancreatitis. Cystitis versus chronic urinary bladder wall thickening from outlet obstruction. - Diet: NPO - Zosyn 3.375 mg every 6 hours - Diet:NPO - MRCP ordered - Abdomen US ordered - Monitor vital signs, I and O's, check stool output, neuro status and patient is a fall risk - Monitor serum electrolytes and CBC - ED physician spoke with the on-call tech ed teacher who thinks the patient would benefit endoscopic ultrasound and recommended transfer to tertiary care facility. He was accepted by Dr. Sands of the medicine service at [facility]. - GI consulted, appreciate recommendations possible GS pancreatitis (noted sludge in GB), leukocytosis ? cholangitis- will need to get MRCP to assess if biliary stones/sludge, if negative then patient will need EUS to assess if any other abnormality in biliary system he has been accepted in another hospital in case MRCP is not helpful - Surgery consulted, appreciate recommendations Discussed with patient that a lap cholecystectomy would be indicated in the setting of choledocholithiasis/gallstones pancreatitis, but will will await MRCP results and GI recommendations for ERCP if needed. Cholecystectomy would be considered once the patient is medically optimized and pancreatitis has resolved or is resolving. (3) Elevated LFTs: Code(s): R79.89 - Other specified abnormal findings of blood chemistry Status: Acute Assessment and Plan: hepatitis panel negative see plan above #1 (4) Esophagitis with gastritis: Code(s): K29.70 - Gastritis, unspecified, without bleeding; K20.90 - Esophagitis, unspecified without bleeding Status: Acute Assessment and Plan: - CT abdomen/pelvis: Mild esophagitis/gastritis. Suggestion of mild gallbladder inflammatory change, correlate with biliary labs. Mild peripancreatic and upper mesenteric fat stranding, may reflect a component of pancreatitis. Cystitis versus chronic urinary bladder wall thickening from outlet obstruction. (5) Hypertension: Code(s): I10 - Essential (primary) hypertension Status: Acute Assessment and Plan: Chronic, continue home medications - Lisinopril 20 mg daily - HCTZ 12.5 mg daily - Blood pressures remain stable, continue to monitor (6) Obstructive sleep apnea: Code(s): G47.33 - Obstructive sleep apnea (adult) (pediatric) Status: Acute Assessment and Plan: CPAP Time Spent With Patient Time with patient: 25 - 35 minutes Subjective Date/time seen: 06/23/24 07:30 Interval history: 58-year-old male with hypertension, obstructive sleep apnea, and gastroesophageal reflux disease who presented to the emergency department via private vehicle yesterday afternoon with complaints of abdominal pain and dehydration. Patient is pleasant lying in bed. He continues to endorse epigastric pain but it does not radiate. He denies any nausea or vomiting. Patient was evaluated by surgery and GI, recommendations pending MRCP. He has no other complaints denying chest pain, shortness of breath, palpitations. Review of Systems Review of Systems: All systems reviewed & are unremarkable except as noted in HPI and below Exam Narrative: AF HR 96 RR 20 SpO2 95 BP 146/76 General: male in no acute respiratory distress who is nontoxic appearing, lying semi recumbent in bed. HEENT: Normocephalic. Atraumatic. Extraocular movement intact. Sclera clear and anicteric. No facial asymmetry. Chest: Lungs are clear to auscultation bilaterally. No wheezes or crackles. CV: Heart was regular rate and rhythm. S1/S2. No murmurs, gallops, or rubs. Abd: Abdomen was soft. Tender epigastric region. Distended. Positive bowel sounds. No organomegaly or masses. Ext: No clubbing, cyanosis, or edema. 2+ DP pulses bilaterally. Neuro: Patient is alert and oriented x4. Speech is clear. Objective Data Vital Signs Vital Signs: Vital Signs - 24 hr 06/22/24 08:30 06/22/24 09:28 06/22/24 13:38 Temperature 98.6 F Pulse Rate 90 98 93 Respiratory Rate 20 22 H 23 H Blood Pressure 159/80 H 154/75 H 146/86 H Pulse Oximetry 93 93 100 Oxygen Delivery Fraction of Inspired Oxygen 06/22/24 16:08 06/22/24 22:30 06/22/24 22:56 Temperature Pulse Rate 93 Respiratory Rate 13 Blood Pressure 163/75 H Pulse Oximetry 100 96 94 Oxygen Delivery Room Air Autopap Fraction of Inspired Oxygen 21 06/22/24 22:56 06/23/24 00:00 06/23/24 03:44 Temperature 98.3 F Pulse Rate 101 H 92 Respiratory Rate 21 H 20 17 Blood Pressure 142/75 H Pulse Oximetry 96 97 Oxygen Delivery Autopap Autopap Fraction of Inspired Oxygen 06/23/24 06:46 Temperature 97.7 F Pulse Rate 96 Respiratory Rate 20 Blood Pressure 146/76 H Pulse Oximetry 95 Oxygen Delivery Fraction of Inspired Oxygen Intake/Output Intake/Output: Intake & Output 06/20/24 06/21/24 06/22/24 06/23/24 23:59 23:59 23:59 23:59 Intake Total 2620 1000 100 Output Total 750 250 Balance 2620 250 -150 Meds/Results Medications: Active Medications Generic Name Dose Route Start Last Admin Trade Name Freq PRN Reason Stop Dose Admin Acetaminophen 650 mg 06/22/24 22:43 Acetaminophen 325 Mg Tablet PO Q6H PRN Mild Pain (1-3) or Fever Enoxaparin Sodium 40 mg 06/23/24 09:00 Enoxaparin 40 Mg/0.4 Ml Syringe SUB-Q DAILY ARMIN Hydrochlorothiazide 12.5 mg 06/23/24 09:00 Hydrochlorothiazide 12.5 Mg Capsule PO QAM ARMIN Piperacillin/Tazobactam/Dextrose 3.375 gm in 50 mls @ 100 mls/hr 06/23/24 00:00 06/23/24 06:37 Zosyn 3.375 Gm/Ns 50 Ml IVPB Infused Q6H RAMIN Infusion Lactated Ringer's 1,000 mls @ 150 mls/hr 06/22/24 22:45 06/22/24 23:43 Lr - Lactated Ringers Iv IV CONT 150 mls/hr .Q6H40M [facility] Administration Lisinopril 20 mg 06/23/24 09:00 Lisinopril 20 Mg Tablet PO QAM [facility] Morphine Sulfate 4 mg 06/22/24 22:44 06/23/24 03:08 Morphine Sulfate (*Crx) 4 Mg/Ml Inj IV PUSH 4 mg Q2H PRN Administration Pain 7-10 Morphine Sulfate 2 mg 06/22/24 22:42 Morphine Sulfate (*Crx) 2 Mg/Ml Inj IV PUSH Q4H PRN Pain Rated 4-6 Multivitamins Therapeutic 1 tablet 06/23/24 09:00 Multivitamins Therapeutic Tab (*Bkc) PO DAILY [facility] Ondansetron HCl 4 mg 06/22/24 18:09 06/22/24 20:35 Ondansetron Inj 4 Mg/2 Ml Vial IV PUSH 4 mg Q4H PRN Administration Nausea Pantoprazole Sodium 40 mg 06/23/24 09:00 Pantoprazole Sodium Iv 40 Mg Vial IV PUSH QAM [facility] Radiology Results: ITS Impressions Abdomen/Pelvis CT 06/21/24 16:35 IMPRESSION: Mild esophagitis/gastritis. Suggestion of mild gallbladder inflammatory change, correlate with biliary labs. Mild peripancreatic and upper mesenteric fat stranding, may reflect a component of pancreatitis. Correlate with pancreatic labs. Cystitis versus chronic urinary bladder wall thickening from outlet obstruction. Labs Labs: Laboratory Results - last 24 hr 06/22/24 06/23/24 23:08 05:07 WBC 22.3 H RBC 5.35 Hgb 11.3 L Hct 33.8 L MCV 63.2 L MCH 21.1 L MCHC 33.4 RDW 14.6 H Plt Count 418 H MPV 10.2 Sodium 138 137 Potassium 3.3 L 3.5 Chloride 98 100 Carbon Dioxide 28 27 Anion Gap 12 10 BUN 11 11 Creatinine 0.82 0.81 Estim Creat Clear Calc 113 114 Estimated GFR > 60 > 60 Glucose 110 99 Calcium 8.6 8.3 L Magnesium 2.7 H Iron 56 TIBC 177 L % Saturation 32 Ferritin 1730.00 H Total Bilirubin 8.8 H 8.1 H Direct Bilirubin 4.5 H Indirect Bilirubin 1.2 H AST 75 H 66 H ALT 105 H 96 H Alkaline Phosphatase 319 H 299 H Ammonia < 9 L C-Reactive Protein 31.2 H Total Protein 8.0 7.0 Albumin 3.4 L 3.2 L Lipase 377 H Vitamin B12 961.0 H Folate 9.1 Procalcitonin 1.9 TSH (Reflex) 2.890 Quality VTE Prophylaxis VTE prophylaxis: pharmacologic ordered
[2024-06-23] MEDS: LACTATED RINGERS 1,000 ML 150 ML IV CONT ×2 (09:35→20:12)
[2024-06-23] MEDS: PANTOPRAZOLE SODIUM IV 40 MG VIAL IV PUSH (09:35)
[2024-06-23] MEDS: ONDANSETRON INJ 4 MG/2 ML VIAL IV PUSH ×2 (09:36→13:29)
[2024-06-23 11:44] LABS: GGT 326 U/L (3-70)
--- NOTE | 2024-06-23 13:28 | WPDGICN ---
Assessment and Plan Assessment and plan (1) Elevated LFTs: Code(s): R79.89 - Other specified abnormal findings of blood chemistry Status: Acute Assessment and Plan: acute onset of abdominal pain, nausea, chills and elevated liver enzymes, also elevated lipase negative hepatitis panel, denies alcohol abuse possible GS pancreatitis (noted sludge in GB), leukocytosis ? cholangitis- will need to get MRCP to assess if biliary stones/sludge, if negative then patient will need EUS to assess if any other abnormality in biliary system (he has been accepted in another hospital in case MRCP is not helpful) on iv antibiotics, he is feeling better will ask surgery to evaluate (2) Gallstone pancreatitis: Code(s): K85.10 - Biliary acute pancreatitis without necrosis or infection Status: Acute Assessment and Plan: pending mrcp, more recommendations after imaging (3) SIRS (systemic inflammatory response syndrome): Code(s): R65.10 - Systemic inflammatory response syndrome (SIRS) of non-infectious origin without acute organ dysfunction Status: Acute Assessment and Plan: leukocytosis, elevated liver enzymes, chills with low grade fever on iv abx pending cultures ? biliary source, also noted uti (4) Abdominal pain: Code(s): R10.9 - Unspecified abdominal pain Status: Acute (5) Esophagitis with gastritis: Code(s): K29.70 - Gastritis, unspecified, without bleeding; K20.90 - Esophagitis, unspecified without bleeding Status: Acute Assessment and Plan: CT scan showed possible esophagitis (6) Abnormal CT scan, esophagus: Code(s): R93.3 - Abnormal findings on diagnostic imaging of other parts of digestive tract Status: Acute GI Consult Note Consult date/time: 06/23/24 13:28 Reason for consult: abdominal pain, elevated liver enzymes HPI: Tam San is a 58 year old male with hypertension, obstructive sleep apnea, and gastroesophageal reflux disease here with new onset of abdominal pain and dehydration. 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 The pain does not radiate, also had nausea and occasional dry heaves with abdominal bloating. Had chills with low grade fever ~ 100 F, he tood nsaid's without relief then noted his urine turned dark. Denies history of pancreatitis, GB issues, no abdominal surgeries. No alcohol abuse. ER Labs were significant for WBC count of 21.4, hemoglobin 12.4, platelet 402, INR 1.1, sodium 134, potassium 2.9, chloride 93, anion gap 15, creatinine 0.80, glucose 110, magnesium 2.7, total bilirubin 6.5, AST 56, ALT 102, alkaline phosphatase 324, lipase 3115. Urinalysis was positive for 2+ protein, 1+ ketones, 2+ blood, 3+ bilirubin, 1+ leukocyte esterase, 51 to 100 RBC, and 11 to 20 WBC. Hepatitis screen was negative. Respiratory panel was negative. CT of the abdomen and pelvis showed mild esophagitis/gastritis, suggestion of mild gallbladder inflammatory change, mild peripancreatic and upper mesenteric fat stranding which may reflect a component of pancreatitis, and cystitis versus chronic urinary bladder wall thickening. Review of Systems Constitutional: Constitutional: Reports chills Eyes: Eyes: Denies blurry vision ENT: Denies nasal congestion Cardiovascular: Cardiovascular: Denies chest pain Respiratory: Respiratory: Denies cough Gastrointestinal: Gastrointestinal: Reports abdominal pain and Reports nausea Genitourinary: Comments: dark urine Musculoskeletal: Musculoskeletal: Denies neck pain Integumentary/Breasts: Skin/Breast: Denies rash Neurologic: Denies Abnormal speech present Psychiatric: Psychiatric: Denies behavioral changes [facility] Past Medical History Medical History (Updated 06/23/24 @ 13:53 by Renard Simeon MD) Abnormal CT scan, esophagus SIRS (systemic inflammatory response syndrome) Gallstone pancreatitis Gastroesophageal reflux disease Eczema Obstructive sleep apnea Hypertension Surgical History Surgical History (Updated 06/22/24 @ 22:28 by Becka Vargas PA-C) No history of previous surgery Family History Family History (Updated 06/22/24 @ 22:28 by Becka Vargas PA-C) Father Hypertension Mother Hypertension Social History Social History (Updated 06/22/24 @ 22:29 by Becka Vargas PA-C) Social History: Surrogate medical decision maker: Dr. Christianne San, sister ([phone]). Code status: Full code. Smoking status: Never smoker Alcohol intake: never Substance use: never Substance use type: does not use Do You Feel Safe in your Home?: Yes Lack of Transportation: No Lack of Food: Never True Current Housing: I Have Housing Concerned About Future Housing: No Difficulty Paying Gas/Electric Bills: No Difficulty Paying for Meds: No Currently Unemployed: No Education: High School Diploma/GED Difficulty w/ Childcare or Family Care: No Spiritual care concerns: No Meds Home Medications and Allergies Home Medications ?Medication ?Instructions ?Recorded ?Confirmed ?Type lisinopril 20 1 tablet PO DAILY 06/22/24 06/22/24 History mg-hydrochlorothiazide 12.5 mg tablet multivitamin 1 tablet PO DAILY 06/22/24 06/22/24 History Allergies Allergy/AdvReac Type Severity Reaction Status Date / Time No Known Allergies Allergy Verified 06/21/24 14:46 Vital Signs Vital Signs - 24 hr 06/22/24 13:38 06/22/24 16:08 06/22/24 22:30 Temperature Pulse Rate 93 93 Respiratory Rate 23 H 13 Blood Pressure 146/86 H 163/75 H Pulse Oximetry 100 100 96 Oxygen Delivery Room Air Fraction of Inspired Oxygen 06/22/24 22:56 06/22/24 22:56 06/23/24 00:00 Temperature 98.3 F Pulse Rate 101 H Respiratory Rate 21 H 20 Blood Pressure 142/75 H Pulse Oximetry 94 96 Oxygen Delivery Autopap Autopap Fraction of Inspired Oxygen 21 06/23/24 03:44 06/23/24 06:46 06/23/24 09:35 Temperature 97.7 F Pulse Rate 92 96 Respiratory Rate 17 20 Blood Pressure 146/76 H Pulse Oximetry 97 95 96 Oxygen Delivery Autopap Autopap Fraction of Inspired Oxygen Exam Const: General: comfortable and no acute distress HENMT: Face/Nose/Sinus: Normal nares present Eyes: Sclera: scleral abnormality (mild icteric sclerae) Neck: Neck: supple Resp: Auscultation: clear to auscultation bilaterally Cardio: Rate: regular rate Rhythm: regular rhythm GI: Inspection: distended GI Palp: Yes Soft to palpation and Yes Tenderness to palpation present (GI) (mild ttp in upper abdomen, no rebound, mild distension) Auscultation: normal bowel sounds Skin: Wounds: no wounds Neuro: Speech: normal speech Motor exam (neuro): 5/5 motor strength present throughout Extrem: General: normal to inspection Psych: Mental Status: mental status grossly normal Results Labs 06/23/24 05:07 06/23/24 05:07 Labs: Short CBC 06/23/24 Range/Units 05:07 WBC 22.3 H (4.5-10.0) K/mm3 Hgb 11.3 L (14.0-18.0) g/dL Hct 33.8 L (42.0-52.0) % Plt Count 418 H (150-375) k/mm3 BMP 06/22/24 06/23/24 23:08 05:07 Sodium 138 137 Potassium 3.3 L 3.5 Chloride 98 100 Carbon Dioxide 28 27 BUN 11 11 Creatinine 0.82 0.81 Glucose 110 99 Calcium 8.6 8.3 L Liver Function 06/22/24 06/23/24 Range/Units 23:08 05:07 Total Bilirubin 8.8 H 8.1 H (0.2-1.3) mg/dL Direct Bilirubin 4.5 H (0-0.3) mg/dL AST 75 H 66 H (17-59) U/L ALT 105 H 96 H (6-50) U/L Alkaline Phosphatase 319 H 299 H (38-126) U/L Albumin 3.4 L 3.2 L (3.5-5.1) g/dL
--- NOTE | 2024-06-23 14:13 | P.CONGS_ITS ---
Assessment and Plan Assessment and plan (1) Gallstone pancreatitis: Code(s): K85.10 - Biliary acute pancreatitis without necrosis or infection Status: Acute Assessment and Plan: * Possible biliary pancreatitis. No alcohol use. No history of pancreatitis. Lipase trending down. Continue medical management. MRCP ordered for today to evaluate for choledocholithiasis. Discussed with patient that a laparoscopic cholecystectomy would be indicated in the setting of choledocholithiasis/gallstones pancreatitis, but will will await MRCP results and GI recommendations for ERCP if needed. Cholecystectomy would be considered once the patient is medically optimized and pancreatitis has resolved or is resolving. (2) Elevated LFTs: Code(s): R79.89 - Other specified abnormal findings of blood chemistry Status: Acute Assessment and Plan: * MRCP ordered. Trend labs. See plan above. (3) High bilirubin: Code(s): R17 - Unspecified jaundice Status: Acute (4) Gastroesophageal reflux disease: Code(s): K21.9 - Gastro-esophageal reflux disease without esophagitis Status: Acute (5) Leukocytosis: Code(s): D72.829 - Elevated white blood cell count, unspecified Status: Acute Assessment and Plan: * Leukocytosis, fever, and elevated bilirubin. He is currently on IV Zosyn, which would cover for ascending cholangitis. Continue antibiotics and trend labs. (6) Hypertension: Code(s): I10 - Essential (primary) hypertension Status: Acute Plan I have discussed the patient's case and plan of care with Dr. Wu. History of Present Illness Consult details Consult date: 06/23/24 Reason for consult: other (Gallstone pancreatitis, leukocytosis) Requesting physician: Renard Simeon MD Narrative: Tam San is a 58 year old male with hypertension, obstructive sleep apnea, and gastroesophageal reflux disease who we have been asked to see in surgical consultation for gallstone pancreatitis and leukocytosis. He presented to the ED two days ago with complaints of abdominal pain and orange-colored urine x4 days. 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 He was concerned he was dehydrated due to the dark urine. His delivery was here in the area and due to the persistent symptoms, he stopped in the ED for evaluation. He has had diffuse upper abdominal pain for the last 4 days. He does report having similar symptoms in the past, but has always attributed it to what he has been drinking or eating. He denies any alcohol use. No previous history of pancreatitis or gallbladder disease. No previous abdominal surgery. Labs in the ED were significant for WBC count of 21.4, hemoglobin 12.4, platelet 402, INR 1.1, sodium 134, potassium 2.9, chloride 93, anion gap 15, creatinine 0.80, glucose 110, magnesium 2.7, total bilirubin 6.5, AST 56, ALT 102, alkaline phosphatase 324, lipase 3115. Urinalysis was positive for 2+ protein, 1+ ketones, 2+ blood, 3+ bilirubin, 1+ leukocyte esterase, 51 to 100 RBC, and 11 to 20 WBC. Hepatitis screen was negative. Respiratory panel was negative. CT of the abdomen and pelvis showed mild esophagitis/gastritis, suggestion of mild gallbladder inflammatory change, mild peripancreatic and upper mesenteric fat stranding which may reflect a component of pancreatitis, and cystitis versus chronic urinary bladder wall thickening. Right upper quadrant ultrasound showed a mildly dilated common duct at 7 mm and a contracted gallbladder that contained sludge, but no definite gallstones. He was admitted and GI was consulted. He has an MRCP ordered. Total bilirubin has gone up to 8.8 this morning. Review of Systems 2 Review of Systems: All systems reviewed & are unremarkable except as noted in HPI and below PMFSH Past Medical History Medical History Abnormal CT scan, esophagus SIRS (systemic inflammatory response syndrome) Gallstone pancreatitis Gastroesophageal reflux disease Eczema Obstructive sleep apnea Hypertension Surgical History Surgical History No history of previous surgery Family History Family History Father Hypertension Mother Hypertension Social History Social History Social History: Surrogate medical decision maker: Dr. Christianne San, sister ([phone]). Code status: Full code. Smoking status: Never smoker Alcohol intake: never Substance use: never Substance use type: does not use Do You Feel Safe in your Home?: Yes Lack of Transportation: No Lack of Food: Never True Current Housing: I Have Housing Concerned About Future Housing: No Difficulty Paying Gas/Electric Bills: No Difficulty Paying for Meds: No Currently Unemployed: No Education: High School Diploma/GED Difficulty w/ Childcare or Family Care: No Spiritual care concerns: No Meds Home Medications and Allergies Home Medications ?Medication ?Instructions ?Recorded ?Confirmed ?Type lisinopril 20 1 tablet PO DAILY 06/22/24 06/22/24 History mg-hydrochlorothiazide 12.5 mg tablet multivitamin 1 tablet PO DAILY 06/22/24 06/22/24 History Allergies Allergy/AdvReac Type Severity Reaction Status Date / Time No Known Allergies Allergy Verified 06/21/24 14:46 Vital Signs Vital Signs - 24 hr 06/22/24 16:08 06/22/24 22:30 06/22/24 22:56 Temperature Pulse Rate 93 Respiratory Rate 13 Blood Pressure 163/75 H Pulse Oximetry 100 96 94 Oxygen Delivery Room Air Autopap Fraction of Inspired Oxygen 21 06/22/24 22:56 06/23/24 00:00 06/23/24 03:44 Temperature 98.3 F Pulse Rate 101 H 92 Respiratory Rate 21 H 20 17 Blood Pressure 142/75 H Pulse Oximetry 96 97 Oxygen Delivery Autopap Autopap Fraction of Inspired Oxygen 06/23/24 06:46 06/23/24 09:35 Temperature 97.7 F Pulse Rate 96 Respiratory Rate 20 Blood Pressure 146/76 H Pulse Oximetry 95 96 Oxygen Delivery Autopap Fraction of Inspired Oxygen Exam 2 Const: General: comfortable and no acute distress Nutritional Appearance: a verage body habitus Orientation/consciousness: patient oriented x3 HENMT: Head: normocephalic and atraumatic Ears: hearing grossly normal bilaterally Mouth: Yes moist mucous membranes Eyes: General: appearance normal, both eyes and all related structures P upils: Equal, round and reactive pupils present Neck: Neck: normal visual inspection and full ROM Resp: Effort & Inspection: no respiratory distress Auscultation: clear to auscultation bilaterally Cardio: Rate: regular rate Rhythm: regular rhythm Peripheral pulses: P eripheral pulses 2+ throughout GI: Inspection: non-distended and no scars GI Palp: Yes Soft to palpation, No Tenderness to palpation present (GI), No Guarding due to palpation present (GI), Yes No hepatosplenomegaly present and No Rebound tenderness present P ercussion: Yes normal to percussion Auscultation: normal bowel sounds Skin: General skin exam: normal color Neuro: General: moves all extremities and no focal motor deficits Speech: n ormal speech Motor exam (neuro): 5/5 motor strength present throughout Extrem: General: normal to inspection and no edema Psych: Mental Status: mental status grossly normal Attitude: cooperative Insight: Good insight present (Psych) Judgement: Good judgement present (Psych) Results Labs 06/23/24 05:07 06/23/24 05:07 Labs: Abnormal lab results 06/22/24 06/23/24 Range/Units 23:08 05:07 WBC 22.3 H (4.5-10.0) K/mm3 Hgb 11.3 L (14.0-18.0) g/dL Hct 33.8 L (42.0-52.0) % MCV 63.2 L (80-100) fl MCH 21.1 L (26-34) pg RDW 14.6 H (11.5-14.5) % Plt Count 418 H (150-375) k/mm3 Potassium 3.3 L (3.4-5.0) mmol/L Calcium 8.3 L (8.4-10.2) mg/dL Magnesium 2.7 H (1.6-2.3) mg/dL TIBC 177 L (265-497) ug/dL Ferritin 1730.00 H (11.1-264) ng/mL Total Bilirubin 8.8 H 8.1 H (0.2-1.3) mg/dL Direct Bilirubin 4.5 H (0-0.3) mg/dL Indirect Bilirubin 1.2 H (0-1.1) mg/dL GGT 326 H (3-70) U/L AST 75 H 66 H (17-59) U/L ALT 105 H 96 H (6-50) U/L Alkaline Phosphatase 319 H 299 H (38-126) U/L Ammonia < 9 L (9-30) umol/L C-Reactive Protein 31.2 H (<1.0) mg/dL Albumin 3.4 L 3.2 L (3.5-5.1) g/dL Lipase 377 H (23-300) U/L Vitamin B12 961.0 H (239-931) pg/mL Diabetes panel 06/22/24 06/23/24 Range/Units 23:08 05:07 Sodium 138 137 (137-145) mmol/L Potassium 3.3 L 3.5 (3.4-5.0) mmol/L Chloride 98 100 (98-107) mmol/L Carbon Dioxide 28 27 (22-30) mmol/L BUN 11 11 (9-20) mg/dL Creatinine 0.82 0.81 (0.7-1.3) mg/dL Glucose 110 99 (65-110) mg/dL Calcium 8.6 8.3 L (8.4-10.2) mg/dL AST 75 H 66 H (17-59) U/L ALT 105 H 96 H (6-50) U/L Alkaline Phosphatase 319 H 299 H (38-126) U/L Total Protein 8.0 7.0 (6.3-8.2) g/dL Albumin 3.4 L 3.2 L (3.5-5.1) g/dL Calcium panel 06/22/24 06/23/24 Range/Units 23:08 05:07 Calcium 8.6 8.3 L (8.4-10.2) mg/dL Albumin 3.4 L 3.2 L (3.5-5.1) g/dL Pituitary panel 06/22/24 06/23/24 Range/Units 23:08 05:07 Sodium 138 137 (137-145) mmol/L Potassium 3.3 L 3.5 (3.4-5.0) mmol/L Chloride 98 100 (98-107) mmol/L Carbon Dioxide 28 27 (22-30) mmol/L BUN 11 11 (9-20) mg/dL Creatinine 0.82 0.81 (0.7-1.3) mg/dL Glucose 110 99 (65-110) mg/dL Calcium 8.6 8.3 L (8.4-10.2) mg/dL Adrenal panel 06/22/24 06/23/24 Range/Units 23:08 05:07 Sodium 138 137 (137-145) mmol/L Potassium 3.3 L 3.5 (3.4-5.0) mmol/L Chloride 98 100 (98-107) mmol/L Carbon Dioxide 28 27 (22-30) mmol/L BUN 11 11 (9-20) mg/dL Creatinine 0.82 0.81 (0.7-1.3) mg/dL Glucose 110 99 (65-110) mg/dL Calcium 8.6 8.3 L (8.4-10.2) mg/dL Total Bilirubin 8.8 H 8.1 H (0.2-1.3) mg/dL AST 75 H 66 H (17-59) U/L ALT 105 H 96 H (6-50) U/L Alkaline Phosphatase 319 H 299 H (38-126) U/L Total Protein 8.0 7.0 (6.3-8.2) g/dL Albumin 3.4 L 3.2 L (3.5-5.1) g/dL All other labs normal. Imaging Additional studies: ITS Impressions Abdomen/Pelvis CT 06/21/24 16:35 IMPRESSION: Mild esophagitis/gastritis. Suggestion of mild gallbladder inflammatory change, correlate with biliary labs. Mild peripancreatic and upper mesenteric fat stranding, may reflect a component of pancreatitis. Correlate with pancreatic labs. Cystitis versus chronic urinary bladder wall thickening from outlet obstruction. Abdomen Ultrasound 06/23/24 08:49 IMPRESSION: 1. Mildly dilated common duct.
[2024-06-24] VITALS (7 sets, daily range): BP systolic 133–155; BP diastolic 75–80; PULSE 86–94; RESP 17–20; TEMP 36.5–37.2; O2SAT 93–96
[2024-06-24] MEDS: MORPHINE SULFATE (*CRX) 4 MG/ML INJ IV PUSH ×6 (00:52→12:31)
[2024-06-24] MEDS: LACTATED RINGERS 1,000 ML 150 ML IV CONT ×2 (04:35→23:16)
[2024-06-24] MEDS: PIPERACILLN/TAZ 3.375GM/NS50ML 3.375 GM/50 ML BAG IVPB ×3 (05:15→17:27)
[2024-06-24 05:54] LABS: Basophils Absolute Auto 0.1 K/mm3 (0.0-0.1); Basophils Percent Auto 0.5 % (0.2-1.2); Eosinophils Absolute Auto 0.2 K/mm3 (0-0.3); Hematocrit 32.9 % (42.0-52.0); Hemoglobin 11.1 g/dL (14.0-18.0); Immature Granulocyte Absolute 0.72 K/mm3 (0.00-0.031); Immature Granulocyte Percent A 3.1 % (0-0.5); Lymphocytes Absolute Auto 1.66 K/mm3 (0.9-3.2); Lymphocytes Percent Auto 7.1 % (18.3-44.2); Mean Corpuscular HGB Conc 33.7 g/dl (32-36); Mean Corpuscular Hemoglobin 21.5 pg (26-34); Mean Corpuscular Volume 63.6 fl (80-100); Mean Platelet Volume 10.4 fl (7.4-10.4); Monocytes Absolute Auto 1.2 K/mm3 (0.1-0.6); Monocytes Percent Auto 5.3 % (2.6-8.5); Neutrophils Absolute Auto 19.5 K/mm3 (1.3-6.7); Nucleated Red Blood Cells Perc 0.1 % (0.0-0.2); Platelet Count Result 442 k/mm3 (150-375); Red Blood Count 5.17 M/mm3 (4.6-6.20); Red Cell Distribution Width 14.9 % (11.5-14.5); White Blood Count 23.5 K/mm3 (4.5-10.0)
[2024-06-24 06:03] LABS: Alanine Aminotransferase 90 U/L (6-50); Alkaline Phosphatase 292 U/L (38-126); Anion Gap 7 mmol/L (4-12); Aspartate Amino Transferase 60 U/L (17-59); Bilirubin,Total 6.8 mg/dL (0.2-1.3); Blood Urea Nitrogen 10 mg/dL (9-20); Calcium 8.4 mg/dL (8.4-10.2); Carbon Dioxide 30 mmol/L (22-30); Chloride 103 mmol/L (98-107); Estimated CRCL calculation 118 ml/min; Estimated Glomerular Filt Rate > 60; Glucose 107 mg/dL (65-110); Potassium 3.1 mmol/L (3.4-5.0); Sodium 140 mmol/L (137-145)
[2024-06-24 06:27] LABS: Hypochromasia 1+; Microcytosis 1+ (NORMAL); Platelet Estimate Increased (Adequate); Target Cells 3+
[2024-06-24 06:28] LABS: Schistocytes None Seen
--- NOTE | 2024-06-24 08:00 | PM.IMPN ---
Progress Note: A&P Assessment and Plan (1) SIRS (systemic inflammatory response syndrome): Code(s): R65.10 - Systemic inflammatory response syndrome (SIRS) of non-infectious origin without acute organ dysfunction Status: Acute Assessment and Plan: Meets SIRS criteria: leukocytosis, elevated liver enzymes, chills with low grade fever - LR 150 ml/hr IV - blood cultures drawn on 06/21: NGTD - Antibiotics: Zosyn 3.375 mg every 6 hours (2) Pancreatitis: Code(s): K85.90 - Acute pancreatitis without necrosis or infection, unspecified Status: Acute Assessment and Plan: - Lipase 3115 on admission, now 377 on am labs - Tot bili 6.8, AST 60, ALT 90, Alk phos 292 - GGT elevated 326 - Blood cultures obtained on 06/21: preliminary - NGTD - CT abdomen/pelvis: Mild esophagitis/gastritis. Suggestion of mild gallbladder inflammatory change, correlate with biliary labs. Mild peripancreatic and upper mesenteric fat stranding, may reflect a component of pancreatitis. Cystitis versus chronic urinary bladder wall thickening from outlet obstruction. - MRCP: Acute interstitial pancreatitis and small pleural effusions. Gallbladder contracted. - Abdomen US: mildly dilated common duct - Diet: NPO - Zosyn 3.375 mg every 6 hours - Monitor vital signs, I and O's, check stool output, neuro status and patient is a fall risk - Monitor serum electrolytes and CBC - ED physician spoke with the on-call petrologist who thinks the patient would benefit endoscopic ultrasound and recommended transfer to tertiary care facility. He was accepted by Dr. Sands of the medicine service at [facility]. - GI consulted, appreciate recommendations possible GS pancreatitis (noted sludge in GB), leukocytosis ? cholangitis- will need to get MRCP to assess if biliary stones/sludge, if negative then patient will need EUS to assess if any other abnormality in biliary system he has been accepted in another hospital in case MRCP is not helpful - Surgery consulted, appreciate recommendations Will await GI recommendations regarding possible ERCP. RUQ US did show GB sludge. Further workup will help determine need for interval cholecystectomy. Continue medical management with IV fluids (3) Elevated LFTs: Code(s): R79.89 - Other specified abnormal findings of blood chemistry Status: Acute Assessment and Plan: hepatitis panel negative LFTs slightly improved on am labs see plan above #1 (4) Esophagitis with gastritis: Code(s): K29.70 - Gastritis, unspecified, without bleeding; K20.90 - Esophagitis, unspecified without bleeding Status: Acute Assessment and Plan: - CT abdomen/pelvis: Mild esophagitis/gastritis. Suggestion of mild gallbladder inflammatory change, correlate with biliary labs. Mild peripancreatic and upper mesenteric fat stranding, may reflect a component of pancreatitis. Cystitis versus chronic urinary bladder wall thickening from outlet obstruction. (5) Hypertension: Code(s): I10 - Essential (primary) hypertension Status: Acute Assessment and Plan: Chronic, continue home medications - Lisinopril 20 mg daily and HCTZ 12.5 mg daily on hold as patient is NPO - Hydralazine 10 mg IV PRN for systolic > 180 - Blood pressures remain stable, continue to monitor (6) Obstructive sleep apnea: Code(s): G47.33 - Obstructive sleep apnea (adult) (pediatric) Status: Acute Assessment and Plan: CPAP Time Spent With Patient Time with patient: 25 - 35 minutes Subjective Date/time seen: 06/24/24 08:00 Interval history: 58-year-old male with hypertension, obstructive sleep apnea, and gastroesophageal reflux disease who presented to the emergency department via private vehicle yesterday afternoon with complaints of abdominal pain and dehydration. Patient is pleasant lying in bed. He states that he is not feeling well today and is endorsing more abdominal pain and bloating. He denies any nausea or vomiting. He was able to tolerate clear liquids overnight. He has no other complaints denies chest pain, palpitations, shortness of breath. Review of Systems Review of Systems: All systems reviewed & are unremarkable except as noted in HPI and below Exam Narrative: AF HR 91 RR 18 SPO2 96 BP 153/78 General: male in no acute respiratory distress who is nontoxic appearing, lying semi recumbent in bed. HEENT: Normocephalic. Atraumatic. Extraocular movement intact. Sclera clear and anicteric. No facial asymmetry. Chest: Lungs are clear to auscultation bilaterally. No wheezes or crackles. CV: Heart was regular rate and rhythm. S1/S2. No murmurs, gallops, or rubs. Abd: Abdomen was soft. Tender generalized. Distended. Positive bowel sounds. Ext: No clubbing, cyanosis, or edema. 2+ DP pulses bilaterally. Neuro: Patient is alert and oriented x4. Speech is clear. Objective Data Vital Signs Vital Signs: Vital Signs - 24 hr 06/23/24 09:35 06/23/24 14:41 06/23/24 20:00 Temperature 98.1 F 98.8 F Pulse Rate 87 88 Respiratory Rate 17 18 Blood Pressure 154/80 H 153/74 H Pulse Oximetry 96 96 95 Oxygen Delivery Autopap 06/23/24 20:12 06/24/24 00:00 06/24/24 00:30 Temperature 98.4 F Pulse Rate 86 Respiratory Rate 20 17 Blood Pressure 133/75 Pulse Oximetry 95 94 Oxygen Delivery Autopap Autopap 06/24/24 06:10 Temperature 98.1 F Pulse Rate 86 Respiratory Rate 20 Blood Pressure 155/80 H Pulse Oximetry 93 Oxygen Delivery Intake/Output Intake/Output: Intake & Output 06/21/24 06/22/24 06/23/24 06/24/24 23:59 23:59 23:59 23:59 Intake Total 2620 1000 2990 1100 Output Total 750 2300 600 Balance 2620 250 690 500 Meds/Results Medications: Active Medications Generic Name Dose Route Start Last Admin Trade Name Freq PRN Reason Stop Dose Admin Acetaminophen 650 mg 06/22/24 22:43 Acetaminophen 325 Mg Tablet PO Q6H PRN Mild Pain (1-3) or Fever Enoxaparin Sodium 40 mg 06/23/24 09:00 06/23/24 09:33 Enoxaparin 40 Mg/0.4 Ml Syringe SUB-Q Not Given DAILY ARMIN Hydrochlorothiazide 12.5 mg 06/23/24 09:00 06/23/24 09:32 Hydrochlorothiazide 12.5 Mg Capsule PO Not Given QAM ARMIN Piperacillin/Tazobactam/Dextrose 3.375 gm in 50 mls @ 100 mls/hr 06/23/24 00:00 06/24/24 05:45 Zosyn 3.375 Gm/Ns 50 Ml IVPB Infused Q6H ARMIN Infusion Lactated Ringer's 1,000 mls @ 150 mls/hr 06/22/24 22:45 06/24/24 04:35 Lr - Lactated Ringers Iv IV CONT 150 mls/hr .Q6H40M ARMIN Administration Lisinopril 20 mg 06/23/24 09:00 06/23/24 09:32 Lisinopril 20 Mg Tablet PO Not Given QAM ARMIN Morphine Sulfate 4 mg 06/22/24 22:44 06/24/24 06:37 Morphine Sulfate (*Crx) 4 Mg/Ml Inj IV PUSH 4 mg Q2H PRN Administration Pain 7-10 Morphine Sulfate 2 mg 06/22/24 22:42 Morphine Sulfate (*Crx) 2 Mg/Ml Inj IV PUSH Q4H PRN Pain Rated 4-6 Multivitamins Therapeutic 1 tablet 06/23/24 09:00 06/23/24 09:32 Multivitamins Therapeutic Tab (*Bkc) PO Not Given DAILY ARMIN Ondansetron HCl 4 mg 06/22/24 18:09 06/23/24 13:29 Ondansetron Inj 4 Mg/2 Ml Vial IV PUSH 4 mg Q4H PRN Administration Nausea Pantoprazole Sodium 40 mg 06/23/24 09:00 06/23/24 09:35 Pantoprazole Sodium Iv 40 Mg Vial IV PUSH 40 mg QAM ARMIN Administration Radiology Results: ITS Impressions Abdomen/Pelvis CT 06/21/24 16:35 IMPRESSION: Mild esophagitis/gastritis. Suggestion of mild gallbladder inflammatory change, correlate with biliary labs. Mild peripancreatic and upper mesenteric fat stranding, may reflect a component of pancreatitis. Correlate with pancreatic labs. Cystitis versus chronic urinary bladder wall thickening from outlet obstruction. Abdomen Ultrasound 06/23/24 08:49 IMPRESSION: 1. Mildly dilated common duct. MRCP 06/23/24 17:17 IMPRESSION: 1. Acute interstitial pancreatitis. 2. Small pleural effusions. Labs Labs: Laboratory Results - last 24 hr 06/22/24 06/24/24 23:08 05:22 WBC 23.5 H RBC 5.17 Hgb 11.1 L Hct 32.9 L MCV 63.6 L MCH 21.5 L MCHC 33.7 RDW 14.9 H Plt Count 442 H MPV 10.4 Immature Gran % (Auto) 3.1 H Neut % (Auto) 83.0 H Lymph % (Auto) 7.[address] [place] % (Auto) 5.3 Eos % (Auto) 1.0 Baso % (Auto) 0.5 Lymph # (Auto) 1.66 [place] # (Auto) 1.2 H Eos # (Auto) 0.2 Baso # (Auto) 0.1 Abs Immat Gran (auto) 0.72 H Absolute Neuts (auto) 19.5 H Absolute Nucleated RBC 0.030 H Nucleated RBC % 0.1 Platelet Estimate Increased Hypochromasia 1+ Microcytosis 1+ Target Cells 3+ Schistocytes None seen Sodium 140 Potassium 3.1 L Chloride 103 Carbon Dioxide 30 Anion Gap 7 BUN 10 Creatinine 0.78 Estim Creat Clear Calc 118 Estimated GFR > 60 Glucose 107 Calcium 8.4 Total Bilirubin 6.8 H GGT 326 H AST 60 H ALT 90 H Alkaline Phosphatase 292 H Total Protein 7.0 Albumin 3.0 L Quality VTE Prophylaxis VTE prophylaxis: pharmacologic ordered
[2024-06-24] MEDS: ENOXAPARIN 40 MG/0.4 ML SYRINGE SUB-Q (09:02)
[2024-06-24] MEDS: POTASSIUM CHLORIDE INJ 40 MEQ in SODIUM CHLORIDE 0.9% IV 500 ML 130 MEQ IVPB (09:02)
[2024-06-24] MEDS: PANTOPRAZOLE SODIUM IV 40 MG VIAL IV PUSH (09:03)
[2024-06-24] MEDS: ONDANSETRON INJ 4 MG/2 ML VIAL IV PUSH ×2 (09:04→20:29)
--- NOTE | 2024-06-24 11:11 | P.PNGS_ITS ---
Progress Note: A&P Assessment and Plan (1) Gallstone pancreatitis: Code(s): K85.10 - Biliary acute pancreatitis without necrosis or infection Status: Acute Assessment and Plan: * MRCP showed acute interstitial pancreatitis, no common duct stone, and gallbladder appeared contracted but otherwise normal. * Total bilirubin still at 6.8. Will await GI recommendations regarding possible ERCP. RUQ US did show GB sludge. Further workup will help determine need for interval cholecystectomy. * Continue medical management with IV fluids (2) Elevated LFTs: Code(s): R79.89 - Other specified abnormal findings of blood chemistry Status: Acute Assessment and Plan: * Elevated LFTs with hyperbilirubinemia suspicious for choledocholithiasis. MRCP negative. GI following. See plan above. (3) High bilirubin: Code(s): R17 - Unspecified jaundice Status: Acute (4) Gastroesophageal reflux disease: Code(s): K21.9 - Gastro-esophageal reflux disease without esophagitis Status: Acute (5) Leukocytosis: Code(s): D72.829 - Elevated white blood cell count, unspecified Status: Acute Assessment and Plan: * WBC count still elevated at 23,000. MRCP showed acute interstitial pancreatitis. Continue antibiotics and trend labs. (6) Hypertension: Code(s): I10 - Essential (primary) hypertension Status: Acute Plan I have discussed the patient's case and plan of care with Dr. Wu. Subjective Subjective Date/Time Seen: 06/24/24 11:11 Patient reports: still having pain, voiding w/o difficulty, flatus, no bowel movement and afebrile Interval history: Patient reports having some upper abdominal pain in the epigastric area today. He feels more bloated. Denies nausea or vomiting and was able to tolerate some clear liquids last night. No other complaints at this time. His total bilirubin is down from 8 to 6.8. Exam Const: General: comfortable and no acute distress GI: Inspection: other (slightly more distended today) GI Palp: Yes Soft to palpation, Yes Tenderness to palpation present (GI) (epigastric and LUQ), No Guarding due to palpation present (GI) and No Rebound tenderness present Auscultation: normal bowel sounds Objective Data Vital Signs Vital Signs: Vital Signs - 24 hr 06/23/24 14:41 06/23/24 20:00 06/23/24 20:12 Temperature 98.1 F 98.8 F Pulse Rate 87 88 Respiratory Rate 17 18 Blood Pressure 154/80 H 153/74 H Pulse Oximetry 96 95 95 Oxygen Delivery Autopap 06/24/24 00:00 06/24/24 00:30 06/24/24 06:10 Temperature 98.4 F 98.1 F Pulse Rate 86 86 Respiratory Rate 20 17 20 Blood Pressure 133/75 155/80 H Pulse Oximetry 94 93 Oxygen Delivery Autopap 06/24/24 08:35 06/24/24 09:38 Temperature Pulse Rate Respiratory Rate Blood Pressure Pulse Oximetry 94 Oxygen Delivery Room Air Room Air Intake/Output Intake/Output: Intake & Output 06/21/24 06/22/24 06/23/24 06/24/24 23:59 23:59 23:59 23:59 Intake Total 2620 1000 2990 1100 Output Total 750 2300 900 Balance 2620 250 690 200 Meds/Results Medications: Active Medications Generic Name Dose Route Start Last Admin Trade Name Freq PRN Reason Stop Dose Admin Acetaminophen 650 mg 06/22/24 22:43 Acetaminophen 325 Mg Tablet PO Q6H PRN Mild Pain (1-3) or Fever Enoxaparin Sodium 40 mg 06/23/24 09:00 06/24/24 09:02 Enoxaparin 40 Mg/0.4 Ml Syringe SUB-Q 40 mg DAILY ARMIN Administration Hydrochlorothiazide 12.5 mg 06/23/24 09:00 06/24/24 08:58 Hydrochlorothiazide 12.5 Mg Capsule PO Not Given QAM ARMIN Piperacillin/Tazobactam/Dextrose 3.375 gm in 50 mls @ 100 mls/hr 06/23/24 00:00 06/24/24 05:45 Zosyn 3.375 Gm/Ns 50 Ml IVPB Infused Q6H ARMIN Infusion Lactated Ringer's 1,000 mls @ 150 mls/hr 06/22/24 22:45 06/24/24 04:35 Lr - Lactated Ringers Iv IV CONT 150 mls/hr .Q6H40M ARMIN Administration Potassium Chloride 40 meq/ 520 mls @ 130 mls/hr 06/24/24 08:01 06/24/24 09:02 Sodium Chloride IVPB 06/24/24 12:00 130 mls/hr ONCE ONE Administration Lisinopril 20 mg 06/23/24 09:00 06/24/24 08:58 Lisinopril 20 Mg Tablet PO Not Given QAM ARMIN Morphine Sulfate 4 mg 06/22/24 22:44 06/24/24 09:04 Morphine Sulfate (*Crx) 4 Mg/Ml Inj IV PUSH 4 mg Q2H PRN Administration Pain 7-10 Morphine Sulfate 2 mg 06/22/24 22:42 Morphine Sulfate (*Crx) 2 Mg/Ml Inj IV PUSH Q4H PRN Pain Rated 4-6 Multivitamins Therapeutic 1 tablet 06/23/24 09:00 06/24/24 08:58 Multivitamins Therapeutic Tab (*Bkc) PO Not Given DAILY ARMIN Ondansetron HCl 4 mg 06/22/24 18:09 06/24/24 09:04 Ondansetron Inj 4 Mg/2 Ml Vial IV PUSH 4 mg Q4H PRN Administration Nausea Pantoprazole Sodium 40 mg 06/23/24 09:00 06/24/24 09:03 Pantoprazole Sodium Iv 40 Mg Vial IV PUSH 40 mg QAM ARMIN Administration Radiology Results: ITS Impressions Abdomen/Pelvis CT 06/21/24 16:35 IMPRESSION: Mild esophagitis/gastritis. Suggestion of mild gallbladder inflammatory change, correlate with biliary labs. Mild peripancreatic and upper mesenteric fat stranding, may reflect a component of pancreatitis. Correlate with pancreatic labs. Cystitis versus chronic urinary bladder wall thickening from outlet obstruction. Abdomen Ultrasound 06/23/24 08:49 IMPRESSION: 1. Mildly dilated common duct. MRCP 06/23/24 17:17 IMPRESSION: 1. Acute interstitial pancreatitis. 2. Small pleural effusions. Labs Labs: Laboratory Results - last 24 hr 06/22/24 06/24/24 23:08 05:22 WBC 23.5 H RBC 5.17 Hgb 11.1 L Hct 32.9 L MCV 63.6 L MCH 21.5 L MCHC 33.7 RDW 14.9 H Plt Count 442 H MPV 10.4 Immature Gran % (Auto) 3.1 H Neut % (Auto) 83.0 H Lymph % (Auto) 7.1 L [place] % (Auto) 5.3 Eos % (Auto) 1.0 Baso % (Auto) 0.5 Lymph # (Auto) 1.66 [place] # (Auto) 1.2 H Eos # (Auto) 0.2 Baso # (Auto) 0.1 Abs Immat Gran (auto) 0.72 H Absolute Neuts (auto) 19.5 H Absolute Nucleated RBC 0.030 H Nucleated RBC % 0.1 Platelet Estimate Increased Hypochromasia 1+ Microcytosis 1+ Target Cells 3+ Schistocytes None seen Sodium 140 Potassium 3.1 L Chloride 103 Carbon Dioxide 30 Anion Gap 7 BUN 10 Creatinine 0.78 Estim Creat Clear Calc 118 Estimated GFR > 60 Glucose 107 Calcium 8.4 Total Bilirubin 6.8 H GGT 326 H AST 60 H ALT 90 H Alkaline Phosphatase 292 H Total Protein 7.0 Albumin 3.0 L
--- NOTE | 2024-06-24 14:59 | WPDGIPROGNO ---
Progress Note: A&P Assessment and Plan (1) Pancreatitis: Code(s): K85.90 - Acute pancreatitis without necrosis or infection, unspecified Status: Acute Assessment and Plan: MRCP reviewed with normal bile duct size and no stones, no mass. Also interstitial pancreatitis. May need at some point EUS to assess if any lesion specially if persistent jaundice. bili down to 6 trend lft's, on iv fluids and antibiotics no alcohol use, normal TG level US showed sludge GB, surgery on board (2) Elevated LFTs: Code(s): R79.89 - Other specified abnormal findings of blood chemistry Status: Acute Assessment and Plan: probably from pancreatitis may need EUS (3) Abdominal pain: Code(s): R10.9 - Unspecified abdominal pain Status: Acute (4) SIRS (systemic inflammatory response syndrome): Code(s): R65.10 - Systemic inflammatory response syndrome (SIRS) of non-infectious origin without acute organ dysfunction Status: Acute (5) Leukocytosis: Code(s): D72.829 - Elevated white blood cell count, unspecified Status: Acute Subjective Date/time seen: 06/24/24 14:59 Interval history: still some pain but no nausea, + bloated Review of Systems Review of Systems: All systems reviewed & are unremarkable except as noted in HPI and below Exam Const: General: comfortable and no acute distress HENMT: Face/Nose/Sinus: Normal nares present Eyes: Sclera: scleral abnormality (mild icteric sclerae) Neck: Neck: supple Resp: Auscultation: clear to auscultation bilaterally Cardio: Rate: regular rate Rhythm: regular rhythm GI: Inspection: distended GI Palp: Yes Soft to palpation and Yes Tenderness to palpation present (GI) (mild ttp in upper abdomen, no rebound, mild distension) Auscultation: normal bowel sounds Skin: Wounds: no wounds Neuro: Speech: normal speech Motor exam (neuro): 5/5 motor strength present throughout Extrem: General: normal to inspection Psych: Mental Status: mental status grossly normal Objective Data Vital Signs Vital Signs: Vital Signs - 24 hr 06/23/24 20:00 06/23/24 20:12 06/24/24 00:00 Temperature 98.8 F 98.4 F Pulse Rate 88 86 Respiratory Rate 18 20 Blood Pressure 153/74 H 133/75 Pulse Oximetry 95 95 94 Oxygen Delivery Autopap 06/24/24 00:30 06/24/24 06:10 06/24/24 08:35 Temperature 98.1 F Pulse Rate 86 Respiratory Rate 17 20 Blood Pressure 155/80 H Pulse Oximetry 93 Oxygen Delivery Autopap Room Air 06/24/24 09:38 06/24/24 13:15 Temperature 97.7 F Pulse Rate 91 Respiratory Rate 18 Blood Pressure 153/78 H Pulse Oximetry 94 96 Oxygen Delivery Room Air Intake/Output Intake/Output: Intake & Output 06/21/24 06/22/24 06/23/24 06/24/24 23:59 23:59 23:59 23:59 Intake Total 2620 1000 2990 1150 Output Total 750 2300 1500 Balance 2620 250 690 -350 Meds/Results Medications: Active Medications Generic Name Dose Route Start Last Admin Trade Name Freq PRN Reason Stop Dose Admin Acetaminophen 650 mg 06/22/24 22:43 Acetaminophen 325 Mg Tablet PO Q6H PRN Mild Pain (1-3) or Fever Enoxaparin Sodium 40 mg 06/23/24 09:00 06/24/24 09:02 Enoxaparin 40 Mg/0.4 Ml Syringe SUB-Q 40 mg DAILY ARMIN Administration Hydralazine HCl 10 mg 06/24/24 14:43 Hydralazine Hcl 20 Mg/Ml Vial IV PUSH Q8H PRN Blood Pressure - High Hydrochlorothiazide 12.5 mg 06/23/24 09:00 06/24/24 08:58 Hydrochlorothiazide 12.5 Mg Capsule PO Not Given QAM ARMIN Piperacillin/Tazobactam/Dextrose 3.375 gm in 50 mls @ 100 mls/hr 06/23/24 00:00 06/24/24 13:01 Zosyn 3.375 Gm/Ns 50 Ml IVPB Infused Q6H ARMIN Infusion Lactated Ringer's 1,000 mls @ 150 mls/hr 06/22/24 22:45 06/24/24 04:35 Lr - Lactated Ringers Iv IV CONT 150 mls/hr .Q6H40M ARMIN Administration Lisinopril 20 mg 06/23/24 09:00 06/24/24 08:58 Lisinopril 20 Mg Tablet PO Not Given QAM ARMIN Morphine Sulfate 4 mg 06/22/24 22:44 06/24/24 12:31 Morphine Sulfate (*Crx) 4 Mg/Ml Inj IV PUSH 4 mg Q2H PRN Administration Pain 7-10 Morphine Sulfate 2 mg 06/22/24 22:42 Morphine Sulfate (*Crx) 2 Mg/Ml Inj IV PUSH Q4H PRN Pain Rated 4-6 Multivitamins Therapeutic 1 tablet 06/23/24 09:00 06/24/24 08:58 Multivitamins Therapeutic Tab (*Bkc) PO Not Given DAILY ARMIN Ondansetron HCl 4 mg 06/22/24 18:09 06/24/24 09:04 Ondansetron Inj 4 Mg/2 Ml Vial IV PUSH 4 mg Q4H PRN Administration Nausea Pantoprazole Sodium 40 mg 06/23/24 09:00 06/24/24 09:03 Pantoprazole Sodium Iv 40 Mg Vial IV PUSH 40 mg QAM ARMIN Administration Radiology Results: ITS Impressions Abdomen/Pelvis CT 06/21/24 16:35 IMPRESSION: Mild esophagitis/gastritis. Suggestion of mild gallbladder inflammatory change, correlate with biliary labs. Mild peripancreatic and upper mesenteric fat stranding, may reflect a component of pancreatitis. Correlate with pancreatic labs. Cystitis versus chronic urinary bladder wall thickening from outlet obstruction. Abdomen Ultrasound 06/23/24 08:49 IMPRESSION: 1. Mildly dilated common duct. MRCP 06/23/24 17:17 IMPRESSION: 1. Acute interstitial pancreatitis. 2. Small pleural effusions. Labs Labs: Laboratory Results - last 24 hr 06/24/24 05:22 WBC 23.5 H RBC 5.17 Hgb 11.1 L Hct 32.9 L MCV 63.6 L MCH 21.5 L MCHC 33.7 RDW 14.9 H Plt Count 442 H MPV 10.4 Immature Gran % (Auto) 3.1 H Neut % (Auto) 83.0 H Lymph % (Auto) 7.1 L [place] % (Auto) 5.3 Eos % (Auto) 1.0 Baso % (Auto) 0.5 Lymph # (Auto) 1.66 [place] # (Auto) 1.2 H Eos # (Auto) 0.2 Baso # (Auto) 0.1 Abs Immat Gran (auto) 0.72 H Absolute Neuts (auto) 19.5 H Absolute Nucleated RBC 0.030 H Nucleated RBC % 0.1 Platelet Estimate Increased Hypochromasia 1+ Microcytosis 1+ Target Cells 3+ Schistocytes None seen Sodium 140 Potassium 3.1 L Chloride 103 Carbon Dioxide 30 Anion Gap 7 BUN 10 Creatinine 0.78 Estim Creat Clear Calc 118 Estimated GFR > 60 Glucose 107 Calcium 8.4 Total Bilirubin 6.8 H AST 60 H ALT 90 H Alkaline Phosphatase 292 H Total Protein 7.0 Albumin 3.0 L
[2024-06-24] MEDS: MORPHINE SULFATE (*CRX) 2 MG/ML INJ IV PUSH (20:26)
[2024-06-25] MEDS: PIPERACILLN/TAZ 3.375GM/NS50ML 3.375 GM/50 ML BAG IVPB ×5 (00:17→23:54)
[2024-06-25 04:36] VITALS: BP 154/80; PULSE 81; RESP 20; TEMP 36.6; O2SAT 98
[2024-06-25] MEDS: MORPHINE SULFATE (*CRX) 2 MG/ML INJ IV PUSH (05:58)
[2024-06-25] MEDS: ONDANSETRON INJ 4 MG/2 ML VIAL IV PUSH ×3 (05:58→22:25)
[2024-06-25 06:30] LABS: Basophils Absolute Auto 0.1 K/mm3 (0.0-0.1); Basophils Percent Auto 0.3 % (0.2-1.2); Eosinophils Absolute Auto 0.3 K/mm3 (0-0.3); Eosinophils Percent Auto 1.4 % (0-4.4); Hematocrit 31.6 % (42.0-52.0); Hemoglobin 10.7 g/dL (14.0-18.0); Immature Granulocyte Absolute 0.81 K/mm3 (0.00-0.031); Immature Granulocyte Percent A 3.4 % (0-0.5); Lymphocytes Absolute Auto 1.92 K/mm3 (0.9-3.2); Lymphocytes Percent Auto 8.1 % (18.3-44.2); Mean Corpuscular HGB Conc 33.9 g/dl (32-36); Mean Corpuscular Hemoglobin 21.2 pg (26-34); Mean Corpuscular Volume 62.7 fl (80-100); Mean Platelet Volume 9.2 fl (7.4-10.4); Monocytes Absolute Auto 1.5 K/mm3 (0.1-0.6); Monocytes Percent Auto 6.3 % (2.6-8.5); Neutrophils Percent Auto 80.5 % (45.5-73.1); Nucleated Red Blood Cells Perc 0.2 % (0.0-0.2); Platelet Count Result 454 k/mm3 (150-375); Red Blood Count 5.04 M/mm3 (4.6-6.20); Red Cell Distribution Width 14.6 % (11.5-14.5); White Blood Count 23.7 K/mm3 (4.5-10.0)
[2024-06-25 06:44] LABS: Alanine Aminotransferase 81 U/L (6-50); Albumin Level 2.9 g/dL (3.5-5.1); Alkaline Phosphatase 284 U/L (38-126); Anion Gap 5 mmol/L (4-12); Aspartate Amino Transferase 60 U/L (17-59); Bilirubin,Total 4.6 mg/dL (0.2-1.3); Blood Urea Nitrogen 11 mg/dL (9-20); Carbon Dioxide 33 mmol/L (22-30); Chloride 103 mmol/L (98-107); Estimated CRCL calculation 114 ml/min; Estimated Glomerular Filt Rate > 60; Glucose 119 mg/dL (65-110); Potassium 3.2 mmol/L (3.4-5.0); Sodium 141 mmol/L (137-145)
[2024-06-25 06:52] LABS: Anisocytosis 1+; Hypochromasia 1+; Platelet Estimate Increased (Adequate); Schistocytes None Seen; Target Cells 3+
[2024-06-25] MEDS: MULTIVITAMINS THERAPEUTIC TAB (*BKC) 1 TABLET PO (08:38)
[2024-06-25] MEDS: hydroCHLOROthiazide 12.5 MG CAPSULE PO (08:38)
[2024-06-25] MEDS: lisinopriL 20 MG TABLET PO (08:38)
[2024-06-25] MEDS: ENOXAPARIN 40 MG/0.4 ML SYRINGE SUB-Q (08:38)
[2024-06-25] MEDS: LACTATED RINGERS 1,000 ML 150 ML IV CONT (08:38)
[2024-06-25] MEDS: PANTOPRAZOLE SODIUM IV 40 MG VIAL IV PUSH (08:39)
--- NOTE | 2024-06-25 09:35 | P.PNIM_ITS ---
Progress Note: A&P Assessment and Plan (1) SIRS (systemic inflammatory response syndrome): Code(s): R65.10 - Systemic inflammatory response syndrome (SIRS) of non-infectious origin without acute organ dysfunction Status: Acute Assessment and Plan: Meets SIRS criteria: leukocytosis, elevated liver enzymes, chills with low grade fever - LR 150 ml/hr IV - blood cultures drawn on 06/21: NGTD - Antibiotics: Zosyn 3.375 mg every 6 hours -continue (2) Pancreatitis: Code(s): K85.90 - Acute pancreatitis without necrosis or infection, unspecified Status: Acute Assessment and Plan: - Lipase 3115 on admission, now 377 on am labs - Tot bili 6.8, AST 60, ALT 90, Alk phos 292 - GGT elevated 326 - Blood cultures obtained on 06/21: preliminary - NGTD - CT abdomen/pelvis: Mild esophagitis/gastritis. Suggestion of mild gallbladder inflammatory change, correlate with biliary labs. Mild peripancreatic and upper mesenteric fat stranding, may reflect a component of pancreatitis. Cystitis versus chronic urinary bladder wall thickening from outlet obstruction. - MRCP: Acute interstitial pancreatitis and small pleural effusions. Gallbladder contracted. - Abdomen US: mildly dilated common duct - Diet: NPO - Zosyn 3.375 mg every 6 hours - Monitor vital signs, I and O's, check stool output, neuro status and patient is a fall risk - Monitor serum electrolytes and CBC - ED physician spoke with the on-call eyeglass frame truer who thinks the patient would benefit endoscopic ultrasound and recommended transfer to tertiary care facility. He was accepted by Dr. Sands of the medicine service at [facility]. - GI consulted, appreciate recommendations possible GS pancreatitis (noted sludge in GB), leukocytosis ? cholangitis- will need to get MRCP to assess if biliary stones/sludge, if negative then patient will need EUS to assess if any other abnormality in biliary system he has been accepted in another hospital in case MRCP is not helpful - Surgery consulted, appreciate recommendations Will await GI recommendations regarding possible ERCP. RUQ US did show GB sludge. Further workup will help determine need for interval cholecystectomy. Continue medical management with IV fluids advancing diet per surgery recommendations (3) Elevated LFTs: Code(s): R79.89 - Other specified abnormal findings of blood chemistry Status: Acute Assessment and Plan: hepatitis panel negative LFTs slightly improved on am labs see plan above #1 (4) Esophagitis with gastritis: Code(s): K29.70 - Gastritis, unspecified, without bleeding; K20.90 - Esophagitis, unspecified without bleeding Status: Acute Assessment and Plan: - CT abdomen/pelvis: Mild esophagitis/gastritis. Suggestion of mild gallbladder inflammatory change, correlate with biliary labs. Mild peripancreatic and upper mesenteric fat stranding, may reflect a component of pancreatitis. Cystitis versus chronic urinary bladder wall thickening from outlet obstruction. (5) Hypertension: Code(s): I10 - Essential (primary) hypertension Status: Acute Assessment and Plan: Chronic, continue home medications - Lisinopril 20 mg daily and HCTZ 12.5 mg daily on hold as patient is NPO - Hydralazine 10 mg IV PRN for systolic > 180 - Blood pressures remain stable, continue to monitor (6) Obstructive sleep apnea: Code(s): G47.33 - Obstructive sleep apnea (adult) (pediatric) Status: Acute Assessment and Plan: CPAP Time Spent With Patient Time with patient: 25 - 35 minutes Subjective Date/time seen: 06/25/24 09:35 Interval history: 58-year-old male with hypertension, obstructive sleep apnea, and gastroesophageal reflux disease who presented to the emergency department via private vehicle yesterday afternoon with complaints of abdominal pain and dehydration. Patient is pleasant lying in bed. He states that he is not feeling well today and is endorsing more abdominal pain and bloating. He denies any nausea or vomiting. He was able to tolerate clear liquids overnight. He has no other complaints denies chest pain, palpitations, shortness of breath. Pt is seen this am. REsting in bed, voicing no acute complains. still some pain but no nausea, reports some bloating Review of Systems Review of Systems: 12 systems were reviewed and are negativ e except for as per HPI. All systems reviewed & are unremarkable except as noted in HPI and below Exam Narrative: General: male in no acute respiratory distress who is nontoxic appearing, lying semi recumbent in bed. HEENT: Normocephalic. Atraumatic. Extraocular movement intact. Sclera clear and anicteric. No facial asymmetry. Chest: Lungs are clear to auscultation bilaterally. No wheezes or crackles. CV: Heart was regular rate and rhythm. S1/S2. No murmurs, gallops, or rubs. Abd: Abdomen was soft. Tender generalized. Distended. Positive bowel sounds. Ext: No clubbing, cyanosis, or edema. 2+ DP pulses bilaterally. Neuro: Patient is alert and oriented x4. Speech is clear. Objective Data Vital Signs Vital Signs: Vital Signs - 24 hr 06/24/24 09:38 06/24/24 13:15 06/24/24 20:00 Temperature 97.7 F Pulse Rate 91 Respiratory Rate 18 Blood Pressure 153/78 H Pulse Oximetry 94 96 Oxygen Delivery Room Air Room Air 06/24/24 21:13 06/24/24 22:45 06/25/24 04:36 Temperature 98.9 F 97.9 F Pulse Rate 94 81 Respiratory Rate 20 18 20 Blood Pressure 150/77 H 154/80 H Pulse Oximetry 95 98 Oxygen Delivery Autopap Intake/Output Intake/Output: Intake & Output 06/22/24 06/23/24 06/24/24 06/25/24 23:59 23:59 23:59 23:59 Intake Total 1000 2990 3200 1800 Output Total 750 2300 2700 650 Balance 250 852 998 9336 Meds/Results Medications: Active Medications Generic Name Dose Route Start Last Admin Trade Name Freq PRN Reason Stop Dose Admin Acetaminophen 650 mg 06/22/24 22:43 Acetaminophen 325 Mg Tablet PO Q6H PRN Mild Pain (1-3) or Fever Enoxaparin Sodium 40 mg 06/23/24 09:00 06/25/24 08:38 Enoxaparin 40 Mg/0.4 Ml Syringe SUB-Q 40 mg DAILY ARMIN Administration Hydralazine HCl 10 mg 06/24/24 14:43 Hydralazine Hcl 20 Mg/Ml Vial IV PUSH Q8H PRN Blood Pressure - High Hydrochlorothiazide 12.5 mg 06/23/24 09:00 06/25/24 08:38 Hydrochlorothiazide 12.5 Mg Capsule PO 12.5 mg QAM ARMIN Administration Piperacillin/Tazobactam/Dextrose 3.375 gm in 50 mls @ 100 mls/hr 06/23/24 00:00 06/25/24 08:44 Zosyn 3.375 Gm/Ns 50 Ml IVPB Infused Q6H ARMIN Infusion Lactated Ringer's 1,000 mls @ 150 mls/hr 06/22/24 22:45 06/25/24 08:45 Lr - Lactated Ringers Iv IV CONT Not Given .Q6H40M AMRIN Lisinopril 20 mg 06/23/24 09:00 06/25/24 08:38 Lisinopril 20 Mg Tablet PO 20 mg QAM ARMIN Administration Morphine Sulfate 4 mg 06/22/24 22:44 06/24/24 12:31 Morphine Sulfate (*Crx) 4 Mg/Ml Inj IV PUSH 4 mg Q2H PRN Administration Pain 7-10 Morphine Sulfate 2 mg 06/22/24 22:42 06/25/24 05:58 Morphine Sulfate (*Crx) 2 Mg/Ml Inj IV PUSH 2 mg Q4H PRN Administration Pain Rated 4-6 Multivitamins Therapeutic 1 tablet 06/23/24 09:00 06/25/24 08:38 Multivitamins Therapeutic Tab (*Bkc) PO 1 tablet DAILY ARMIN Administration Ondansetron HCl 4 mg 06/22/24 18:09 06/25/24 05:58 Ondansetron Inj 4 Mg/2 Ml Vial IV PUSH 4 mg Q4H PRN Administration Nausea Pantoprazole Sodium 40 mg 06/23/24 09:00 06/25/24 08:39 Pantoprazole Sodium Iv 40 Mg Vial IV PUSH 40 mg QAM ARMIN Administration Radiology Results: ITS Impressions Abdomen/Pelvis CT 06/21/24 16:35 IMPRESSION: Mild esophagitis/gastritis. Suggestion of mild gallbladder inflammatory change, correlate with biliary labs. Mild peripancreatic and upper mesenteric fat stranding, may reflect a component of pancreatitis. Correlate with pancreatic labs. Cystitis versus chronic urinary bladder wall thickening from outlet obstruction. Abdomen Ultrasound 06/23/24 08:49 IMPRESSION: 1. Mildly dilated common duct. MRCP 06/23/24 17:17 IMPRESSION: 1. Acute interstitial pancreatitis. 2. Small pleural effusions. Labs Labs: Laboratory Results - last 24 hr 06/25/24 06:18 WBC 23.7 H RBC 5.04 Hgb 10.7 L Hct 31.6 L MCV 62.7 L MCH 21.2 L MCHC 33.9 RDW 14.6 H Plt Count 454 H MPV 9.2 Immature Gran % (Auto) 3.4 H Neut % (Auto) 80.5 H Lymph % (Auto) 8.1 L [place] % (Auto) 6.3 Eos % (Auto) 1.4 Baso % (Auto) 0.3 Lymph # (Auto) 1.92 [place] # (Auto) 1.5 H Eos # (Auto) 0.3 Baso # (Auto) 0.1 Abs Immat Gran (auto) 0.81 H Absolute Neuts (auto) 19.0 H Absolute Nucleated RBC 0.050 H Nucleated RBC % 0.2 Platelet Estimate Increased Hypochromasia 1+ Anisocytosis 1+ Target Cells 3+ Schistocytes None seen Sodium 141 Potassium 3.2 L Chloride 103 Carbon Dioxide 33 H Anion Gap 5 BUN 11 Creatinine 0.81 Estim Creat Clear Calc 114 Estimated GFR > 60 Glucose 119 H Calcium 8.0 L Total Bilirubin 4.6 H AST 60 H ALT 81 H Alkaline Phosphatase 284 H Total Protein 7.0 Albumin 2.9 L Quality VTE Prophylaxis VTE prophylaxis: pharmacologic ordered
[2024-06-25 16:00] VITALS: BP 132/57; PULSE 78; RESP 17; TEMP 36.1; O2SAT 98
--- NOTE | 2024-06-25 16:03 | P.PNGI_ITS ---
Progress Note: A&P Assessment and Plan (1) Pancreatitis: Code(s): K85.90 - Acute pancreatitis without necrosis or infection, unspecified Status: Acute Assessment and Plan: MRCP reviewed with normal bile duct size and no stones, no mass. Also interstitial pancreatitis. May need at some point EUS to assess if any lesion specially if persistent jaundice but bili has been coming down now 4 trending lft's, on iv fluids and antibiotics no alcohol use, normal TG level US showed sludge GB, surgery on board also on abx (2) Elevated LFTs: Code(s): R79.89 - Other specified abnormal findings of blood chemistry Status: Acute Assessment and Plan: probably from pancreatitis may need EUS but noted that bilirubin is coming down nicely (3) Abdominal pain: Code(s): R10.9 - Unspecified abdominal pain Status: Acute Assessment and Plan: no pain today (4) SIRS (systemic inflammatory response syndrome): Code(s): R65.10 - Systemic inflammatory response syndrome (SIRS) of non-infectious origin without acute organ dysfunction Status: Acute (5) Leukocytosis: Code(s): D72.829 - Elevated white blood cell count, unspecified Status: Acute Subjective Date/time seen: 06/25/24 16:03 Interval history: feeling better today, bloated after liquid diet but no more pain Review of Systems Review of Systems: All systems reviewed & are unremarkable except as noted in HPI and below Exam Const: General: comfortable and no acute distress HENMT: Face/Nose/Sinus: Normal nares present Eyes: Sclera: scleral abnormality (mild icteric sclerae) Neck: Neck: supple Resp: Auscultation: clear to auscultation bilaterally Cardio: Rate: regular rate Rhythm: regular rhythm GI: Inspection: distended GI Palp: Yes Soft to palpation and No Guarding due to palpation present (GI) Auscultation: normal bowel sounds Other: less distended, no rebound Skin: Wounds: no wounds Neuro: Speech: normal speech Motor exam (neuro): 5/5 motor strength present throughout Extrem: General: normal to inspection Psych: Mental Status: mental status grossly normal Objective Data Vital Signs Vital Signs: Vital Signs - 24 hr 06/24/24 20:00 06/24/24 21:13 06/24/24 22:45 Temperature 98.9 F Pulse Rate 94 Respiratory Rate 20 18 Blood Pressure 150/77 H Pulse Oximetry 95 Oxygen Delivery Room Air Autopap 06/25/24 04:36 06/25/24 08:45 Temperature 97.9 F Pulse Rate 81 Respiratory Rate 20 Blood Pressure 154/80 H Pulse Oximetry 98 Oxygen Delivery Room Air Intake/Output Intake/Output: Intake & Output 06/22/24 06/23/24 06/24/24 06/25/24 23:59 23:59 23:59 23:59 Intake Total 1000 2990 3200 3324 Output Total 750 2300 2700 1750 Balance 250 978 077 3473 Meds/Results Medications: Active Medications Generic Name Dose Route Start Last Admin Trade Name Freq PRN Reason Stop Dose Admin Acetaminophen 650 mg 06/22/24 22:43 Acetaminophen 325 Mg Tablet PO Q6H PRN Mild Pain (1-3) or Fever Enoxaparin Sodium 40 mg 06/23/24 09:00 06/25/24 08:38 Enoxaparin 40 Mg/0.4 Ml Syringe SUB-Q 40 mg DAILY ARMIN Administration Hydralazine HCl 10 mg 06/24/24 14:43 Hydralazine Hcl 20 Mg/Ml Vial IV PUSH Q8H PRN Blood Pressure - High Hydrochlorothiazide 12.5 mg 06/23/24 09:00 06/25/24 08:38 Hydrochlorothiazide 12.5 Mg Capsule PO 12.5 mg QAM ARMIN Administration Piperacillin/Tazobactam/Dextrose 3.375 gm in 50 mls @ 100 mls/hr 06/23/24 00:00 06/25/24 13:13 Zosyn 3.375 Gm/Ns 50 Ml IVPB Infused Q6H ARMIN Infusion Lactated Ringer's 1,000 mls @ 150 mls/hr 06/22/24 22:45 06/25/24 08:45 Lr - Lactated Ringers Iv IV CONT Not Given .Q6H40M ARMIN Lisinopril 20 mg 06/23/24 09:00 06/25/24 08:38 Lisinopril 20 Mg Tablet PO 20 mg QAM ARMIN Administration Morphine Sulfate 4 mg 06/22/24 22:44 06/24/24 12:31 Morphine Sulfate (*Crx) 4 Mg/Ml Inj IV PUSH 4 mg Q2H PRN Administration Pain 7-10 Morphine Sulfate 2 mg 06/22/24 22:42 06/25/24 05:58 Morphine Sulfate (*Crx) 2 Mg/Ml Inj IV PUSH 2 mg Q4H PRN Administration Pain Rated 4-6 Multivitamins Therapeutic 1 tablet 06/23/24 09:00 06/25/24 08:38 Multivitamins Therapeutic Tab (*Bkc) PO 1 tablet DAILY ARMIN Administration Ondansetron HCl 4 mg 06/22/24 18:09 06/25/24 05:58 Ondansetron Inj 4 Mg/2 Ml Vial IV PUSH 4 mg Q4H PRN Administration Nausea Pantoprazole Sodium 40 mg 06/23/24 09:00 06/25/24 08:39 Pantoprazole Sodium Iv 40 Mg Vial IV PUSH 40 mg QAM ARMIN Administration Radiology Results: ITS Impressions Abdomen/Pelvis CT 06/21/24 16:35 IMPRESSION: Mild esophagitis/gastritis. Suggestion of mild gallbladder inflammatory change, correlate with biliary labs. Mild peripancreatic and upper mesenteric fat stranding, may reflect a component of pancreatitis. Correlate with pancreatic labs. Cystitis versus chronic urinary bladder wall thickening from outlet obstruction. Abdomen Ultrasound 06/23/24 08:49 IMPRESSION: 1. Mildly dilated common duct. MRCP 06/23/24 17:17 IMPRESSION: 1. Acute interstitial pancreatitis. 2. Small pleural effusions. Labs Labs: Laboratory Results - last 24 hr 06/25/24 06:18 WBC 23.7 H RBC 5.04 Hgb 10.7 L Hct 31.6 L MCV 62.7 L MCH 21.2 L MCHC 33.9 RDW 14.6 H Plt Count 454 H MPV 9.2 Immature Gran % (Auto) 3.4 H Neut % (Auto) 80.5 H Lymph % (Auto) 8.1 L [place] % (Auto) 6.3 Eos % (Auto) 1.4 Baso % (Auto) 0.3 Lymph # (Auto) 1.92 [place] # (Auto) 1.5 H Eos # (Auto) 0.3 Baso # (Auto) 0.1 Abs Immat Gran (auto) 0.81 H Absolute Neuts (auto) 19.0 H Absolute Nucleated RBC 0.050 H Nucleated RBC % 0.2 Platelet Estimate Increased Hypochromasia 1+ Anisocytosis 1+ Target Cells 3+ Schistocytes None seen Sodium 141 Potassium 3.2 L Chloride 103 Carbon Dioxide 33 H Anion Gap 5 BUN 11 Creatinine 0.81 Estim Creat Clear Calc 114 Estimated GFR > 60 Glucose 119 H Calcium 8.0 L Total Bilirubin 4.6 H AST 60 H ALT 81 H Alkaline Phosphatase 284 H Total Protein 7.0 Albumin 2.9 L
--- NOTE | 2024-06-25 16:07 | P.PNGS_ITS ---
Progress Note: A&P Assessment and Plan (1) Gallstone pancreatitis: Code(s): K85.10 - Biliary acute pancreatitis without necrosis or infection Status: Acute Assessment and Plan: * MRCP showed acute interstitial pancreatitis, no common duct stone, and gallbladder appeared contracted but otherwise normal. ERCP deferred * Total bilirubin trending down to 4. GI following * Advanced to full liquids, continue medical management (2) Elevated LFTs: Code(s): R79.89 - Other specified abnormal findings of blood chemistry Status: Acute Assessment and Plan: * Elevated LFTs with hyperbilirubinemia suspicious for choledocholithiasis. MRCP negative. Bilirubin trending down to 4. GI following. (3) High bilirubin: Code(s): R17 - Unspecified jaundice Status: Acute (4) Gastroesophageal reflux disease: Code(s): K21.9 - Gastro-esophageal reflux disease without esophagitis Status: Acute (5) Leukocytosis: Code(s): D72.829 - Elevated white blood cell count, unspecified Status: Acute Assessment and Plan: * WBC still at 23,000. MRCP showed acute interstitial pancreatitis. Continue antibiotics and trend labs. (6) Hypertension: Code(s): I10 - Essential (primary) hypertension Status: Acute Plan I have discussed the patient's case and plan of care with Dr. Wu. Subjective Subjective Date/Time Seen: 06/25/24 16:07 Patient reports: no new complaints, feels better, pain is less, tolerating liquids well, flatus and bowel movement Exam Const: General: comfortable and no acute distress Orientation/consciousness: patient oriented x3 GI: Inspection: non-distended and other (Less distended and softer today) GI Palp: Yes Soft to palpation, Yes Tenderness to palpation present (GI) (LUQ, epigastric), No Guarding due to palpation present (GI) and No Rebound tenderness present Auscultation: normal bowel sounds Objective Data Vital Signs Vital Signs: Vital Signs - 24 hr 06/24/24 20:00 06/24/24 21:13 06/24/24 22:45 Temperature 98.9 F Pulse Rate 94 Respiratory Rate 20 18 Blood Pressure 150/77 H Pulse Oximetry 95 Oxygen Delivery Room Air Autopap 06/25/24 04:36 06/25/24 08:45 Temperature 97.9 F Pulse Rate 81 Respiratory Rate 20 Blood Pressure 154/80 H Pulse Oximetry 98 Oxygen Delivery Room Air Intake/Output Intake/Output: Intake & Output 06/22/24 06/23/24 06/24/24 06/25/24 23:59 23:59 23:59 23:59 Intake Total 1000 2990 3200 3324 Output Total 750 2300 2700 1750 Balance 250 709 690 7153 Meds/Results Medications: Active Medications Generic Name Dose Route Start Last Admin Trade Name Freq PRN Reason Stop Dose Admin Acetaminophen 650 mg 06/22/24 22:43 Acetaminophen 325 Mg Tablet PO Q6H PRN Mild Pain (1-3) or Fever Enoxaparin Sodium 40 mg 06/23/24 09:00 06/25/24 08:38 Enoxaparin 40 Mg/0.4 Ml Syringe SUB-Q 40 mg DAILY ARMIN Administration Hydralazine HCl 10 mg 06/24/24 14:43 Hydralazine Hcl 20 Mg/Ml Vial IV PUSH Q8H PRN Blood Pressure - High Hydrochlorothiazide 12.5 mg 06/23/24 09:00 06/25/24 08:38 Hydrochlorothiazide 12.5 Mg Capsule PO 12.5 mg QAM ARMIN Administration Piperacillin/Tazobactam/Dextrose 3.375 gm in 50 mls @ 100 mls/hr 06/23/24 00:00 06/25/24 13:13 Zosyn 3.375 Gm/Ns 50 Ml IVPB Infused Q6H ARMIN Infusion Lactated Ringer's 1,000 mls @ 150 mls/hr 06/22/24 22:45 06/25/24 08:45 Lr - Lactated Ringers Iv IV CONT Not Given .Q6H40M ARMIN Lisinopril 20 mg 06/23/24 09:00 06/25/24 08:38 Lisinopril 20 Mg Tablet PO 20 mg QAM ARMIN Administration Morphine Sulfate 4 mg 06/22/24 22:44 06/24/24 12:31 Morphine Sulfate (*Crx) 4 Mg/Ml Inj IV PUSH 4 mg Q2H PRN Administration Pain 7-10 Morphine Sulfate 2 mg 06/22/24 22:42 06/25/24 05:58 Morphine Sulfate (*Crx) 2 Mg/Ml Inj IV PUSH 2 mg Q4H PRN Administration Pain Rated 4-6 Multivitamins Therapeutic 1 tablet 06/23/24 09:00 06/25/24 08:38 Multivitamins Therapeutic Tab (*Bkc) PO 1 tablet DAILY ARMIN Administration Ondansetron HCl 4 mg 06/22/24 18:09 06/25/24 05:58 Ondansetron Inj 4 Mg/2 Ml Vial IV PUSH 4 mg Q4H PRN Administration Nausea Pantoprazole Sodium 40 mg 06/23/24 09:00 06/25/24 08:39 Pantoprazole Sodium Iv 40 Mg Vial IV PUSH 40 mg QAM ARMIN Administration Radiology Results: ITS Impressions Abdomen/Pelvis CT 06/21/24 16:35 IMPRESSION: Mild esophagitis/gastritis. Suggestion of mild gallbladder inflammatory change, correlate with biliary labs. Mild peripancreatic and upper mesenteric fat stranding, may reflect a component of pancreatitis. Correlate with pancreatic labs. Cystitis versus chronic urinary bladder wall thickening from outlet obstruction. Abdomen Ultrasound 06/23/24 08:49 IMPRESSION: 1. Mildly dilated common duct. MRCP 06/23/24 17:17 IMPRESSION: 1. Acute interstitial pancreatitis. 2. Small pleural effusions. Labs Labs: Laboratory Results - last 24 hr 06/25/24 06:18 WBC 23.7 H RBC 5.04 Hgb 10.7 L Hct 31.6 L MCV 62.7 L MCH 21.2 L MCHC 33.9 RDW 14.6 H Plt Count 454 H MPV 9.2 Immature Gran % (Auto) 3.4 H Neut % (Auto) 80.5 H Lymph % (Auto) 8.1 L [place] % (Auto) 6.3 Eos % (Auto) 1.4 Baso % (Auto) 0.3 Lymph # (Auto) 1.92 [place] # (Auto) 1.5 H Eos # (Auto) 0.3 Baso # (Auto) 0.1 Abs Immat Gran (auto) 0.81 H Absolute Neuts (auto) 19.0 H Absolute Nucleated RBC 0.050 H Nucleated RBC % 0.2 Platelet Estimate Increased Hypochromasia 1+ Anisocytosis 1+ Target Cells 3+ Schistocytes None seen Sodium 141 Potassium 3.2 L Chloride 103 Carbon Dioxide 33 H Anion Gap 5 BUN 11 Creatinine 0.81 Estim Creat Clear Calc 114 Estimated GFR > 60 Glucose 119 H Calcium 8.0 L Total Bilirubin 4.6 H AST 60 H ALT 81 H Alkaline Phosphatase 284 H Total Protein 7.0 Albumin 2.9 L
[2024-06-25] MEDS: LACTATED RINGERS 1,000 ML 100 ML IV CONT (16:20)
[2024-06-25 21:46] VITALS: BP 160/86; PULSE 81; RESP 18; TEMP 36.6; O2SAT 99
[2024-06-26 05:02] LABS: Basophils Absolute Auto 0.1 K/mm3 (0.0-0.1); Basophils Percent Auto 0.4 % (0.2-1.2); Eosinophils Absolute Auto 0.3 K/mm3 (0-0.3); Eosinophils Percent Auto 1.3 % (0-4.4); Hematocrit 32.3 % (42.0-52.0); Hemoglobin 11.2 g/dL (14.0-18.0); Immature Granulocyte Absolute 0.51 K/mm3 (0.00-0.031); Immature Granulocyte Percent A 2.5 % (0-0.5); Lymphocytes Absolute Auto 1.74 K/mm3 (0.9-3.2); Lymphocytes Percent Auto 8.4 % (18.3-44.2); Mean Corpuscular HGB Conc 34.7 g/dl (32-36); Mean Corpuscular Hemoglobin 21.5 pg (26-34); Mean Corpuscular Volume 62.1 fl (80-100); Mean Platelet Volume 9.8 fl (7.4-10.4); Monocytes Absolute Auto 1.2 K/mm3 (0.1-0.6); Monocytes Percent Auto 5.8 % (2.6-8.5); Neutrophils Absolute Auto 16.8 K/mm3 (1.3-6.7); Neutrophils Percent Auto 81.6 % (45.5-73.1); Nucleated Red Blood Cells Perc 0.1 % (0.0-0.2); Platelet Count Result 491 k/mm3 (150-375); Red Cell Distribution Width 16.5 % (11.5-14.5); White Blood Count 20.6 K/mm3 (4.5-10.0)
[2024-06-26 05:19] LABS: Alanine Aminotransferase 84 U/L (6-50); Alkaline Phosphatase 307 U/L (38-126); Anion Gap 9 mmol/L (4-12); Aspartate Amino Transferase 55 U/L (17-59); Bilirubin,Total 3.5 mg/dL (0.2-1.3); Blood Urea Nitrogen 9 mg/dL (9-20); Calcium 8.5 mg/dL (8.4-10.2); Carbon Dioxide 32 mmol/L (22-30); Chloride 100 mmol/L (98-107); Estimated CRCL calculation 112 ml/min; Estimated Glomerular Filt Rate > 60; Glucose 111 mg/dL (65-110); Potassium 3.5 mmol/L (3.4-5.0); Sodium 141 mmol/L (137-145)
[2024-06-26 06:15] VITALS: BP 151/80; PULSE 83; RESP 20; TEMP 36.6; O2SAT 99
[2024-06-26] MEDS: PIPERACILLN/TAZ 3.375GM/NS50ML 3.375 GM/50 ML BAG IVPB ×4 (06:20→23:57)
[2024-06-26 07:00] LABS: Anisocytosis 1+; Hypochromasia 1+; Platelet Estimate Increased (Adequate); Schistocytes None Seen; Target Cells 3+
[2024-06-26] MEDS: LACTATED RINGERS 1,000 ML 100 ML IV CONT ×2 (08:26→22:06)
[2024-06-26] MEDS: MULTIVITAMINS THERAPEUTIC TAB (*BKC) 1 TABLET PO (08:26)
[2024-06-26] MEDS: hydroCHLOROthiazide 12.5 MG CAPSULE PO (08:27)
[2024-06-26] MEDS: PANTOPRAZOLE SODIUM IV 40 MG VIAL IV PUSH ×2 (08:27→18:53)
[2024-06-26] MEDS: lisinopriL 20 MG TABLET PO (08:27)
[2024-06-26] MEDS: ENOXAPARIN 40 MG/0.4 ML SYRINGE SUB-Q (08:27)
--- NOTE | 2024-06-26 08:41 | P.PNIM_ITS ---
Progress Note: A&P Assessment and Plan (1) SIRS (systemic inflammatory response syndrome): Code(s): R65.10 - Systemic inflammatory response syndrome (SIRS) of non-infectious origin without acute organ dysfunction Status: Acute Assessment and Plan: Meets SIRS criteria: leukocytosis, elevated liver enzymes, chills with low grade fever - LR 150 ml/hr IV - blood cultures drawn on 06/21: NGTD - Antibiotics: Zosyn 3.375 mg every 6 hours -continue (2) Pancreatitis: Code(s): K85.90 - Acute pancreatitis without necrosis or infection, unspecified Status: Acute Assessment and Plan: - Lipase 3115 on admission, now 377 on am labs - Tot bili 6.8, AST 60, ALT 90, Alk phos 292 - GGT elevated 326 - Blood cultures obtained on 06/21: preliminary - NGTD - CT abdomen/pelvis: Mild esophagitis/gastritis. Suggestion of mild gallbladder inflammatory change, correlate with biliary labs. Mild peripancreatic and upper mesenteric fat stranding, may reflect a component of pancreatitis. Cystitis versus chronic urinary bladder wall thickening from outlet obstruction. - MRCP: Acute interstitial pancreatitis and small pleural effusions. Gallbladder contracted. - Abdomen US: mildly dilated common duct - Diet: NPO - Zosyn 3.375 mg every 6 hours - Monitor vital signs, I and O's, check stool output, neuro status and patient is a fall risk - Monitor serum electrolytes and CBC - ED physician spoke with the on-call button spindler who thinks the patient would benefit endoscopic ultrasound and recommended transfer to tertiary care facility. He was accepted by Dr. Sands of the medicine service at [facility]. - GI consulted, appreciate recommendations possible GS pancreatitis (noted sludge in GB), leukocytosis ? cholangitis- will need to get MRCP to assess if biliary stones/sludge, if negative then patient will need EUS to assess if any other abnormality in biliary system he has been accepted in another hospital in case MRCP is not helpful - Surgery consulted, appreciate recommendations Will await GI recommendations regarding possible ERCP. RUQ US did show GB sludge. Further workup will help determine need for interval cholecystectomy. Continue medical management with IV fluids 06/26- NPO at midnight (3) Elevated LFTs: Code(s): R79.89 - Other specified abnormal findings of blood chemistry Status: Acute Assessment and Plan: hepatitis panel negative LFTs slightly improved on am labs see plan above #1 (4) Esophagitis with gastritis: Code(s): K29.70 - Gastritis, unspecified, without bleeding; K20.90 - Esophagitis, unspecified without bleeding Status: Acute Assessment and Plan: - CT abdomen/pelvis: Mild esophagitis/gastritis. Suggestion of mild gallbladder inflammatory change, correlate with biliary labs. Mild peripancreatic and upper mesenteric fat stranding, may reflect a component of pancreatitis. Cystitis versus chronic urinary bladder wall thickening from outlet obstruc tion. (5) Hypertension: Code(s): I10 - Essential (primary) hypertension Status: Acute Assessment and Plan: Chronic, continue home medications - Lisinopril 20 mg daily and HCTZ 12.5 mg daily - Hydralazine 10 mg IV PRN for systolic > 180 - Blood pressures remain stable, continue to monitor (6) Obstructive sleep apnea: Code(s): G47.33 - Obstructive sleep apnea (adult) (pediatric) Status: Acute Assessment and Plan: CPAP Time Spent With Patient Time with patient: 25 - 35 minutes Subjective Date/time seen: 06/26/24 08:41 Interval history: feeling better today, WBC trending down but still elevated- 23.7->20.6 Surgery following - interval cholecystectomy if labs continue to improve . reports no abd pain, no n/v/d Review of Systems Review of Systems: 12 systems were reviewed and are negativ e except for as per HPI. Exam Narrative: General: male in no acute respiratory distress who is nontoxic appearing, lying semi recumbent in bed. HEENT: Normocephalic. Atraumatic. Extraocular movement intact. Sclera clear and anicteric. No facial asymmetry. Chest: Lungs are clear to auscultation bilaterally. No wheezes or crackles. CV: Heart was regular rate and rhythm. S1/S2. No murmurs, gallops, or rubs. Abd: Abdomen was soft. Tender generalized. Distended. Positive bowel sounds. Ext: No clubbing, cyanosis, or edema. 2+ DP pulses bilaterally. Neuro: Patient is alert and oriented x4. Speech is clear. Const: General: comfortable Objective Data Vital Signs Vital Signs: Vital Signs - 24 hr 06/25/24 08:45 06/25/24 16:00 06/25/24 21:46 Temperature 97.0 F L 98 F Pulse Rate 78 81 Respiratory Rate 17 18 Blood Pressure 132/57 L 160/86 H Pulse Oximetry 98 99 Oxygen Delivery Room Air 06/26/24 06:15 06/26/24 08:30 Temperature 97.9 F Pulse Rate 83 Respiratory Rate 20 Blood Pressure 151/80 H Pulse Oximetry 99 Oxygen Delivery Room Air Intake/Output Intake/Output: Intake & Output 06/23/24 06/24/24 06/25/24 06/26/24 23:59 23:59 23:59 23:59 Intake Total 2990 3200 4624 1900 Output Total 2300 2700 3450 1000 Balance 994 429 0947 900 Meds/Results Medications: Active Medications Generic Name Dose Route Start Last Admin Trade Name Freq PRN Reason Stop Dose Admin Acetaminophen 650 mg 06/22/24 22:43 Acetaminophen 325 Mg Tablet PO Q6H PRN Mild Pain (1-3) or Fever Enoxaparin Sodium 40 mg 06/23/24 09:00 06/26/24 08:27 Enoxaparin 40 Mg/0.4 Ml Syringe SUB-Q 40 mg DAILY ARMIN Administration Hydralazine HCl 10 mg 06/24/24 14:43 Hydralazine Hcl 20 Mg/Ml Vial IV PUSH Q8H PRN Blood Pressure - High Hydrochlorothiazide 12.5 mg 06/23/24 09:00 06/26/24 08:27 Hydrochlorothiazide 12.5 Mg Capsule PO 12.5 mg QAM ARMIN Administration Piperacillin/Tazobactam/Dextrose 3.375 gm in 50 mls @ 100 mls/hr 06/23/24 00:00 06/26/24 07:00 Zosyn 3.375 Gm/Ns 50 Ml IVPB Infused Q6H ARMIN Infusion Lactated Ringer's 1,000 mls @ 100 mls/hr 06/22/24 22:45 06/26/24 08:26 Lr - Lactated Ringers Iv IV CONT 100 mls/hr .Q10H ARMIN Administration Lisinopril 20 mg 06/23/24 09:00 06/26/24 08:27 Lisinopril 20 Mg Tablet PO 20 mg QAM ARMIN Administration Morphine Sulfate 4 mg 06/22/24 22:44 06/24/24 12:31 Morphine Sulfate (*Crx) 4 Mg/Ml Inj IV PUSH 4 mg Q2H PRN Administration Pain 7-10 Morphine Sulfate 2 mg 06/22/24 22:42 06/25/24 05:58 Morphine Sulfate (*Crx) 2 Mg/Ml Inj IV PUSH 2 mg Q4H PRN Administration Pain Rated 4-6 Multivitamins Therapeutic 1 tablet 06/23/24 09:00 06/26/24 08:26 Multivitamins Therapeutic Tab (*Bkc) PO 1 tablet DAILY ARMIN Administration Ondansetron HCl 4 mg 06/22/24 18:09 06/25/24 22:25 Ondansetron Inj 4 Mg/2 Ml Vial IV PUSH 4 mg Q4H PRN Administration Nausea Pantoprazole Sodium 40 mg 06/23/24 09:00 06/26/24 08:27 Pantoprazole Sodium Iv 40 Mg Vial IV PUSH 40 mg QAM ARMIN Administration Radiology Results: ITS Impressions Abdomen/Pelvis CT 06/21/24 16:35 IMPRESSION: Mild esophagitis/gastritis. Suggestion of mild gallbladder inflammatory change, correlate with biliary labs. Mild peripancreatic and upper mesenteric fat stranding, may reflect a component of pancreatitis. Correlate with pancreatic labs. Cystitis versus chronic urinary bladder wall thickening from outlet obstruction. Abdomen Ultrasound 06/23/24 08:49 IMPRESSION: 1. Mildly dilated common duct. MRCP 06/23/24 17:17 IMPRESSION: 1. Acute interstitial pancreatitis. 2. Small pleural effusions. Labs Labs: Laboratory Results - last 24 hr 06/26/24 04:27 WBC 20.6 H RBC 5.20 Hgb 11.2 L Hct 32.3 L MCV 62.1 L MCH 21.5 L MCHC 34.7 RDW 16.5 H Plt Count 491 H MPV 9.8 Immature Gran % (Auto) 2.5 H Neut % (Auto) 81.6 H Lymph % (Auto) 8.4 L [place] % (Auto) 5.8 Eos % (Auto) 1.3 Baso % (Auto) 0.4 Lymph # (Auto) 1.74 [place] # (Auto) 1.2 H Eos # (Auto) 0.3 Baso # (Auto) 0.1 Abs Immat Gran (auto) 0.51 H Absolute Neuts (auto) 16.8 H Absolute Nucleated RBC 0.030 H Nucleated RBC % 0.1 Platelet Estimate Increased Hypochromasia 1+ Anisocytosis 1+ Target Cells 3+ Schistocytes None seen Sodium 141 Potassium 3.5 Chloride 100 Carbon Dioxide 32 H Anion Gap 9 BUN 9 Creatinine 0.83 Estim Creat Clear Calc 112 Estimated GFR > 60 Glucose 111 H Calcium 8.5 Total Bilirubin 3.5 H AST 55 ALT 84 H Alkaline Phosphatase 307 H Total Protein 7.0 Albumin 3.0 L Quality VTE Prophylaxis VTE prophylaxis: pharmacologic ordered
--- NOTE | 2024-06-26 08:57 | P.PNGS_ITS ---
Progress Note: A&P Assessment and Plan (1) Gallstone pancreatitis: Code(s): K85.10 - Biliary acute pancreatitis without necrosis or infection Status: Acute Assessment and Plan: improving, exam benign, will setup for interval cholecystectomy (2) Leukocytosis: Code(s): D72.829 - Elevated white blood cell count, unspecified Status: Acute Assessment and Plan: sl improved, cont to trend, cont abx, likely secondary to severe pancreatitis Subjective Subjective Date/Time Seen: 06/26/24 08:57 Interval history: feels good, no pain, galdino FLD Review of Systems Review of Systems: All systems reviewed & are unremarkable except as noted in HPI and below Exam Const: General: cooperative, comfortable, no acute distress and obese Resp: Auscultation: clear to auscultation bilaterally Cardio: Rate: regular rate Rhythm: regular rhythm GI: Inspection: normal to inspection and obesity GI Palp: No abdominal tenderness, Yes Soft to palpation, No Tenderness to palpation present (GI), No Guarding due to palpation present (GI) and No Rigid due to palpation Objective Data Vital Signs Vital Signs: Vital Signs - 24 hr 06/25/24 16:00 06/25/24 21:46 06/26/24 06:15 Temperature 36.1 C L 36.6 C 36.6 C Pulse Rate 78 81 83 Respiratory Rate 17 18 20 Blood Pressure 132/57 L 160/86 H 151/80 H Pulse Oximetry 98 99 99 Oxygen Delivery 06/26/24 08:30 Temperature Pulse Rate Respiratory Rate Blood Pressure Pulse Oximetry Oxygen Delivery Room Air Intake/Output Intake/Output: Intake & Output 06/23/24 06/24/24 06/25/24 06/26/24 23:59 23:59 23:59 23:59 Intake Total 2990 3200 4624 1900 Output Total 2300 2700 3450 1000 Balance 008 769 6861 900 Meds/Results Medications: Active Medications Generic Name Dose Route Start Last Admin Trade Name Freq PRN Reason Stop Dose Admin Acetaminophen 650 mg 06/22/24 22:43 Acetaminophen 325 Mg Tablet PO Q6H PRN Mild Pain (1-3) or Fever Enoxaparin Sodium 40 mg 06/23/24 09:00 06/26/24 08:27 Enoxaparin 40 Mg/0.4 Ml Syringe SUB-Q 40 mg DAILY ARMIN Administration Hydralazine HCl 10 mg 06/24/24 14:43 Hydralazine Hcl 20 Mg/Ml Vial IV PUSH Q8H PRN Blood Pressure - High Hydrochlorothiazide 12.5 mg 06/23/24 09:00 06/26/24 08:27 Hydrochlorothiazide 12.5 Mg Capsule PO 12.5 mg QAM ARMIN Administration Piperacillin/Tazobactam/Dextrose 3.375 gm in 50 mls @ 100 mls/hr 06/23/24 00 :00 06/26/24 07:00 Zosyn 3.375 Gm/Ns 50 Ml IVPB Infused Q6H ARMIN Infusion Lactated Ringer's 1,000 mls @ 100 mls/hr 06/22/24 22:45 06/26/24 08:26 Lr - Lactated Ringers Iv IV CONT 100 mls/hr .Q10H ARMIN Administration Lisinopril 20 mg 06/23/24 09:00 06/26/24 08:27 Lisinopril 20 Mg Tablet PO 20 mg QAM ARMIN Administration Morphine Sulfate 4 mg 06/22/24 22:44 06/24/24 12:31 Morphine Sulfate (*Crx) 4 Mg/Ml Inj IV PUSH 4 mg Q2H PRN Administration Pain 7-10 Morphine Sulfate 2 mg 06/22/24 22:42 06/25/24 05:58 Morphine Sulfate (*Crx) 2 Mg/Ml Inj IV PUSH 2 mg Q4H PRN Administration Pain Rated 4-6 Multivitamins Therapeutic 1 tablet 06/23/24 09:00 06/26/24 08:26 Multivitamins Therapeutic Tab (*Bkc) PO 1 tablet DAILY ARMIN Administration Ondansetron HCl 4 mg 06/22/24 18:09 06/25/24 22:25 Ondansetron Inj 4 Mg/2 Ml Vial IV PUSH 4 mg Q4H PRN Administration Nausea Pantoprazole Sodium 40 mg 06/23/24 09:00 06/26/24 08:27 Pantoprazole Sodium Iv 40 Mg Vial IV PUSH 40 mg QAM ARMIN Administration Radiology Results: ITS Impressions Abdomen/Pelvis CT 06/21/24 16:35 IMPRESSION: Mild esophagitis/gastritis. Suggestion of mild gallbladder inflammatory change, correlate with biliary labs. Mild peripancreatic and upper mesenteric fat stranding, may reflect a component of pancreatitis. Correlate with pancreatic labs. Cystitis versus chronic urinary bladder wall thickening from outlet obstruction. Abdomen Ultrasound 06/23/24 08:49 IMPRESSION: 1. Mildly dilated common duct. MRCP 06/23/24 17:17 IMPRESSION: 1. Acute interstitial pancreatitis. 2. Small pleural effusions. Labs Labs: Laboratory Results - last 24 hr 06/26/24 04:27 WBC 20.6 H RBC 5.20 Hgb 11.2 L Hct 32.3 L MCV 62.1 L MCH 21.5 L MCHC 34.7 RDW 16.5 H Plt Count 491 H MPV 9.8 Immature Gran % (Auto) 2.5 H Neut % (Auto) 81.6 H Lymph % (Auto) 8.4 L [place] % (Auto) 5.8 Eos % (Auto) 1.3 Baso % (Auto) 0.4 Lymph # (Auto) 1.74 [place] # (Auto) 1.2 H Eos # (Auto) 0.3 Baso # (Auto) 0.1 Abs Immat Gran (auto) 0.51 H Absolute Neuts (auto) 16.8 H Absolute Nucleated RBC 0.030 H Nucleated RBC % 0.1 Platelet Estimate Increased Hypochromasia 1+ Anisocytosis 1+ Target Cells 3+ Schistocytes None seen Sodium 141 Potassium 3.5 Chloride 100 Carbon Dioxide 32 H Anion Gap 9 BUN 9 Creatinine 0.83 Estim Creat Clear Calc 112 Estimated GFR > 60 Glucose 111 H Calcium 8.5 Total Bilirubin 3.5 H AST 55 ALT 84 H Alkaline Phosphatase 307 H Total Protein 7.0 Albumin 3.0 L
[2024-06-26 14:00] VITALS: BP 152/81; PULSE 76; RESP 17; TEMP 36.3; O2SAT 100
--- NOTE | 2024-06-26 14:13 | WPDANESEPPF ---
Anes - Initial Pre Proc Eval Procedure: Operation Date: 06/27/24 07:30 Proposed Procedures p Laparoscopic Cholecystectomy, Possible Open - Raven Wu MD Date/Time: 06/26/24 14:13 Surgeon: Parker Paez MD Pre Op Diagnosis: Pancreatitis/Elevated LFTS/Leukocytosis Patient Data Age: 58 Gender: M Height: 1.83 m Weight: 123.2 kg Last Vital Signs Temp 97.9 F 06/26/24 06:15 Pulse 83 06/26/24 06:15 Resp 20 06/26/24 06:15 BP 151/80 H 06/26/24 06:15 Pulse Ox 99 06/26/24 06:15 O2 Del Method Room Air 06/26/24 08:30 FiO2 21 06/22/24 22:56 Allergies Allergy/AdvReac Type Severity Reaction Status Date / Time No Known Allergies Allergy Verified 06/21/24 14:46 Home Medications ?Medication ?Instructions ?Recorded ?Confirmed ?Type lisinopril 20 1 tablet PO DAILY 06/22/24 06/22/24 History mg-hydrochlorothiazide 12.5 mg tablet multivitamin 1 tablet PO DAILY 06/22/24 06/22/24 History Laboratory Tests 06/26/24 04:27 WBC 20.6 H K/mm3 (4.5-10.0) RBC 5.20 M/mm3 (4.6-6.20) Hgb 11.2 L g/dL (14.0-18.0) Hct 32.3 L % (42.0-52.0) MCV 62.1 L fl (80-100) MCH 21.5 L pg (26-34) MCHC 34.7 g/dl (32-36) RDW 16.5 H % (11.5-14.5) Plt Count 491 H k/mm3 (150-375) MPV 9.8 fl (7.4-10.4) Immature Gran % (Auto) 2.5 H % (0-0.5) Neut % (Auto) 81.6 H % (45.5-73.1) Lymph % (Auto) 8.4 L % (18.3-44.2) [place] % (Auto) 5.8 % (2.6-8.5) Eos % (Auto) 1.3 % (0-4.4) Baso % (Auto) 0.4 % (0.2-1.2) Lymph # (Auto) 1.74 K/mm3 (0.9-3.2) [place] # (Auto) 1.2 H K/mm3 (0.1-0.6) Eos # (Auto) 0.3 K/mm3 (0-0.3) Baso # (Auto) 0.1 K/mm3 (0.0-0.1) Abs Immat Gran (auto) 0.51 H K/mm3 (0.00-0.031) Absolute Neuts (auto) 16.8 H K/mm3 (1.3-6.7) Absolute Nucleated RBC 0.030 H K/mm3 (0.0-0.012) Nucleated RBC % 0.1 % (0.0-0.2) Platelet Estimate Increased (Adequate) Hypochromasia 1+ Anisocytosis 1+ Target Cells 3+ Schistocytes None seen Sodium 141 mmol/L (137-145) Potassium 3.5 mmol/L (3.4-5.0) Chloride 100 mmol/L (98-107) Carbon Dioxide 32 H mmol/L (22-30) Anion Gap 9 mmol/L (4-12) BUN 9 mg/dL (9-20) Creatinine 0.83 mg/dL (0.7-1.3) Estim Creat Clear Calc 112 ml/min Estimated GFR > 60 (59 - ) Glucose 111 H mg/dL (65-110) Calcium 8.5 mg/dL (8.4-10.2) Total Bilirubin 3.5 H mg/dL (0.2-1.3) AST 55 U/L (17-59) ALT 84 H U/L (6-50) Alkaline Phosphatase 307 H U/L (38-126) Total Protein 7.0 g/dL (6.3-8.2) Albumin 3.0 L g/dL (3.5-5.1) Patient hx anesthesia problems: none Family hx anesthesia problems: none Results Review: All pre-operative results and documents have been reviewed as part of the pre-operative evaluation. [facility] Past Medical History Medical History Abnormal CT scan, esophagus SIRS (systemic inflammatory response syndrome) Gallstone pancreatitis Gastroesophageal reflux disease Eczema Obstructive sleep apnea Hypertension Surgical History Surgical History No history of previous surgery Family History Family History Father Hypertension Mother Hypertension Social History Social History Social History: Surrogate medical decision maker: Dr. Christianne San, sister ([phone]). Code status: Full code. Smoking status: Never smoker Alcohol intake: never Substance use: never Substance use type: does not use Do You Feel Safe in your Home?: Yes Lack of Transportation: No Lack of Food: Never True Current Housing: I Have Housing Concerned About Future Housing: No Difficulty Paying Gas/Electric Bills: No Difficulty Paying for Meds: No Currently Unemployed: No Education: High School Diploma/GED Difficulty w/ Childcare or Family Care: No Spiritual care concerns: No Anes - Eval Final PreProcedure Day of Procedure 06/26/24 14:13 Patient weight: obese Heart: regular rate and rhythm Lungs: clear to auscultation Airway: Mallampati scale class II Neurological: alert and oriented Last oral intake: >/= 8 hours ASA classification: III Emergent: no Anesthetic plan: proceed Anesthesia type and monitoring: general ETT and standard monitoring Results Review: All pre-operative results and documents have been reviewed as part of the pre-operative evaluation. Informed Consent: The patient's anesthetic plan and its attendant risks and benefits were discussed with the patient/family/POA. Questions were solicited and answers provided to the satisfaction of the patient/family/POA.
--- NOTE | 2024-06-26 15:44 | P.PNGI_ITS ---
Progress Note: A&P Assessment and Plan (1) Pancreatitis: Code(s): K85.90 - Acute pancreatitis without necrosis or infection, unspecified Status: Acute Assessment and Plan: MRCP reviewed with normal bile duct size and no stones, no mass. Also interstitial pancreatitis. lft's trending down nicely and he is doing much better no alcohol use, normal TG level US showed sludge GB, surgery on board and planning interval brooks (2) Elevated LFTs: Code(s): R79.89 - Other specified abnormal findings of blood chemistry Status: Acute Assessment and Plan: probably from pancreatitis bilirubin is down and overall much better (3) Abdominal pain: Code(s): R10.9 - Unspecified abdominal pain Status: Acute Assessment and Plan: resolved (4) SIRS (systemic inflammatory response syndrome): Code(s): R65.10 - Systemic inflammatory response syndrome (SIRS) of non-infectious origin without acute organ dysfunction Status: Acute Assessment and Plan: on abx better (5) Leukocytosis: Code(s): D72.829 - Elevated white blood cell count, unspecified Status: Acute Subjective Date/time seen: 06/26/24 15:44 Interval history: comfortable, no pain, still some abdominal distension Review of Systems Review of Systems: All systems reviewed & are unremarkable except as noted in HPI and below Exam Const: General: comfortable and no acute distress HENMT: Face/Nose/Sinus: Normal nares present Eyes: Sclera: scleral abnormality (mild icteric sclerae) Neck: Neck: supple Resp: Auscultation: clear to auscultation bilaterally Cardio: Rate: regular rate Rhythm: regular rhythm GI: Inspection: distended GI Palp: Yes Soft to palpation and No Guarding due to palpation present (GI) Auscultation: normal bowel sounds Other: less distended, no rebound Skin: Wounds: no wounds Neuro: Speech: normal speech Motor exam (neuro): 5/5 motor strength present throughout Extrem: General: normal to inspection Psych: Mental Status: mental status grossly normal Objective Data Vital Signs Vital Signs: Vital Signs - 24 hr 06/25/24 16:00 06/25/24 21:46 06/26/24 06:15 Temperature 97.0 F L 98 F 97.9 F Pulse Rate 78 81 83 Respiratory Rate 17 18 20 Blood Pressure 132/57 L 160/86 H 151/80 H Pulse Oximetry 98 99 99 Oxygen Delivery 06/26/24 08:30 Temperature Pulse Rate Respiratory Rate Blood Pressure Pulse Oximetry Oxygen Delivery Room Air Intake/Output Intake/Output: Intake & Output 06/23/24 06/24/24 06/25/24 06/26/24 23:59 23:59 23:59 23:59 Intake Total 2990 3200 4624 3478 Output Total 2300 2700 3450 1500 Balance 054 664 9324 1978 Meds/Results Medications: Active Medications Generic Name Dose Route Start Last Admin Trade Name Freq PRN Reason Stop Dose Admin Acetaminophen 650 mg 06/22/24 22:43 Acetaminophen 325 Mg Tablet PO Q6H PRN Mild Pain (1-3) or Fever Enoxaparin Sodium 40 mg 06/23/24 09:00 06/26/24 08:27 Enoxaparin 40 Mg/0.4 Ml Syringe SUB-Q 40 mg DAILY ARMIN Administration Fentanyl Citrate 25 mcg 06/26/24 14:14 Fentanyl Citrate Inj (*Crx) 100 Mcg/2 Ml Vial IV PUSH Q2M PRN Pain Hydralazine HCl 10 mg 06/24/24 14:43 Hydralazine Hcl 20 Mg/Ml Vial IV PUSH Q8H PRN Blood Pressure - High Hydrochlorothiazide 12.5 mg 06/23/24 09:00 06/26/24 08:27 Hydrochlorothiazide 12.5 Mg Capsule PO 12.5 mg QAM ARMIN Administration Piperacillin/Tazobactam/Dextrose 3.375 gm in 50 mls @ 100 mls/hr 06/23/24 00:00 06/26/24 12:05 Zosyn 3.375 Gm/Ns 50 Ml IVPB 100 mls/hr Q6H ARMIN Administration Lactated Ringer's 1,000 mls @ 100 mls/hr 06/22/24 22:45 06/26/24 08:26 Lr - Lactated Ringers Iv IV CONT 100 mls/hr .Q10H ARMIN Administration Lactated Ringer's 1,000 mls @ 30 mls/hr 06/26/24 14:15 Lr - Lactated Ringers Iv IV CONT .Q24H ARMIN Lisinopril 20 mg 06/23/24 09:00 06/26/24 08:27 Lisinopril 20 Mg Tablet PO 20 mg QAM ARMIN Administration Morphine Sulfate 4 mg 06/22/24 22:44 06/24/24 12:31 Morphine Sulfate (*Crx) 4 Mg/Ml Inj IV PUSH 4 mg Q2H PRN Administration Pain 7-10 Morphine Sulfate 2 mg 06/22/24 22:42 06/25/24 05:58 Morphine Sulfate (*Crx) 2 Mg/Ml Inj IV PUSH 2 mg Q4H PRN Administration Pain Rated 4-6 Multivitamins Therapeutic 1 tablet 06/23/24 09:00 06/26/24 08:26 Multivitamins Therapeutic Tab (*Bkc) PO 1 tablet DAILY ARMIN Administration Ondansetron HCl 4 mg 06/22/24 18:09 06/25/24 22:25 Ondansetron Inj 4 Mg/2 Ml Vial IV PUSH 4 mg Q4H PRN Administration Nausea Ondansetron HCl 4 mg 06/26/24 14:14 Ondansetron Inj 4 Mg/2 Ml Vial IV PUSH ONCE PRN Nausea Pantoprazole Sodium 40 mg 06/23/24 09:00 06/26/24 08:27 Pantoprazole Sodium Iv 40 Mg Vial IV PUSH 40 mg QAM ARMIN Administration Radiology Results: ITS Impressions Abdomen/Pelvis CT 06/21/24 16:35 IMPRESSION: Mild esophagitis/gastritis. Suggestion of mild gallbladder inflammatory change, correlate with biliary labs. Mild peripancreatic and upper mesenteric fat stranding, may reflect a component of pancreatitis. Correlate with pancreatic labs. Cystitis versus chronic urinary bladder wall thickening from outlet obstruction. Abdomen Ultrasound 06/23/24 08:49 IMPRESSION: 1. Mildly dilated common duct. MRCP 06/23/24 17:17 IMPRESSION: 1. Acute interstitial pancreatitis. 2. Small pleural effusions. Labs Labs: Laboratory Results - last 24 hr 06/26/24 04:27 WBC 20.6 H RBC 5.20 Hgb 11.2 L Hct 32.3 L MCV 62.1 L MCH 21.5 L MCHC 34.7 RDW 16.5 H Plt Count 491 H MPV 9.8 Immature Gran % (Auto) 2.5 H Neut % (Auto) 81.6 H Lymph % (Auto) 8.4 L [place] % (Auto) 5.8 Eos % (Auto) 1.3 Baso % (Auto) 0.4 Lymph # (Auto) 1.74 [place] # (Auto) 1.2 H Eos # (Auto) 0.3 Baso # (Auto) 0.1 Abs Immat Gran (auto) 0.51 H Absolute Neuts (auto) 16.8 H Absolute Nucleated RBC 0.030 H Nucleated RBC % 0.1 Platelet Estimate Increased Hypochromasia 1+ Anisocytosis 1+ Target Cells 3+ Schistocytes None seen Sodium 141 Potassium 3.5 Chloride 100 Carbon Dioxide 32 H Anion Gap 9 BUN 9 Creatinine 0.83 Estim Creat Clear Calc 112 Estimated GFR > 60 Glucose 111 H Calcium 8.5 Total Bilirubin 3.5 H AST 55 ALT 84 H Alkaline Phosphatase 307 H Total Protein 7.0 Albumin 3.0 L
[2024-06-26 22:00] VITALS: BP 156/90; PULSE 83; RESP 16; TEMP 36.7; O2SAT 99
[2024-06-26] MEDS: ONDANSETRON INJ 4 MG/2 ML VIAL IV PUSH (22:05)
[2024-06-26 23:06] VITALS: PULSE 90; RESP 17; O2SAT 97
[2024-06-27] VITALS (11 sets, daily range): BP systolic 135–172; BP diastolic 63–90; PULSE 74–95; RESP 14–18; TEMP 36.2–37.3; O2SAT 94–100
[2024-06-27 05:14] LABS: Basophils Absolute Auto 0.1 K/mm3 (0.0-0.1); Basophils Percent Auto 0.5 % (0.2-1.2); Eosinophils Absolute Auto 0.3 K/mm3 (0-0.3); Eosinophils Percent Auto 1.2 % (0-4.4); Hematocrit 34.2 % (42.0-52.0); Hemoglobin 11.6 g/dL (14.0-18.0); Immature Granulocyte Absolute 0.47 K/mm3 (0.00-0.031); Immature Granulocyte Percent A 2.1 % (0-0.5); Lymphocytes Absolute Auto 1.99 K/mm3 (0.9-3.2); Lymphocytes Percent Auto 8.8 % (18.3-44.2); Mean Corpuscular HGB Conc 33.9 g/dl (32-36); Mean Corpuscular Hemoglobin 21.6 pg (26-34); Mean Corpuscular Volume 63.8 fl (80-100); Monocytes Absolute Auto 1.4 K/mm3 (0.1-0.6); Monocytes Percent Auto 6.2 % (2.6-8.5); Neutrophils Absolute Auto 18.4 K/mm3 (1.3-6.7); Neutrophils Percent Auto 81.2 % (45.5-73.1); Nucleated Red Blood Cells Perc 0.1 % (0.0-0.2); Platelet Count Result 520 k/mm3 (150-375); Red Blood Count 5.36 M/mm3 (4.6-6.20); Red Cell Distribution Width 17.5 % (11.5-14.5); White Blood Count 22.7 K/mm3 (4.5-10.0)
[2024-06-27 05:26] LABS: Alanine Aminotransferase 105 U/L (6-50); Albumin Level 3.4 g/dL (3.5-5.1); Alkaline Phosphatase 354 U/L (38-126); Anion Gap 10 mmol/L (4-12); Aspartate Amino Transferase 68 U/L (17-59); Bilirubin,Total 3.3 mg/dL (0.2-1.3); Blood Urea Nitrogen 10 mg/dL (9-20); Calcium 9.1 mg/dL (8.4-10.2); Carbon Dioxide 33 mmol/L (22-30); Chloride 100 mmol/L (98-107); Estimated CRCL calculation 98 ml/min; Estimated Glomerular Filt Rate > 60; Glucose 122 mg/dL (65-110); Potassium 3.8 mmol/L (3.4-5.0); Sodium 143 mmol/L (137-145)
[2024-06-27 05:47] LABS: Platelet Estimate Increased (Adequate)
[2024-06-27 05:48] LABS: Hypochromasia 2+; Schistocytes None Seen; Target Cells 3+
--- NOTE | 2024-06-27 05:55 | ECG_ITS ---
Test Date: 2024-06-27 07:01:11 [address] [place] Rate: 84 P: 9 ND: 140 QRS: -46 QRSD: 134 T: 4 QT: 439 QTc: 520 Interpretive Statements SINUS RHYTHM RIGHT BUNDLE BRANCH BLOCK LEFT ANTERIOR FASCICULAR BLOCK LEFT VENTRICULAR HYPERTROPHY BASELINE ARTIFACT- I, III, AVR, AVL, AVF, V2, V4-V6 ABNORMAL ECG No previous ECG available for comparison Electronically Signed On 06-27-2024 08:07:10 CHILDREN COUNSELOR by Dale Smith D.O.
[2024-06-27] MEDS: PIPERACILLN/TAZ 3.375GM/NS50ML 3.375 GM/50 ML BAG IVPB ×3 (06:02→18:18)
--- NOTE | 2024-06-27 07:22 | WPDHPUPDATE1 ---
History and Physical Update Update Date/Time: 06/27/24 07:22 History and Physical has been reviewed, including an updated exam of the patient. There are NO changes in the patient's condition. Risks, benefits, and alternatives have been discussed and questions answered. Patient agrees to proceed with procedure.
[2024-06-27] MEDS: BUPIVACAINE/EPINEPHRINE 0.5% 50 ML VIAL 30 ML INFILTRATE (08:19)
[2024-06-27] MEDS: LACTATED RINGERS 1,000 ML 30 ML IV CONT (08:31)
--- NOTE | 2024-06-27 08:33 | W.PM.PROC2 ---
Procedure Note - Detailed Date of Procedure 06/27/24 Pre-op Diagnosis Biliary pancreatitis Post-op Diagnosis Same Procedure Performed Laparoscopic cholecystectomy Surgeon Raven Wu MD Anesthesia General Indications 58-year-old male presenting with pre pancreatitis. Normalization of pancreatic and liver enzymes. Set up for interval cholecystectomy Findings moderate cholecystitis Description of Procedure The patient was taken to the operating room placed in the supine position. After adequate induction of general anesthesia, the patient was prepped and draped in normal sterile fashion. A time-out was then performed to verify the patient's identity as well as the procedure being performed. I then made a 5 mm incision in the infraumbilical region. Through this, a Veress needle was placed into the peritoneal cavity and CO2 gas was then insufflated. After adequate pneumoperitoneum was achieved, the Veress needle was removed and a 5 mm optiview trocar was placed through this incision under direct visualization. I then placed the laparoscope through this trocar site and under direct visualization placed a further 12 mm subxiphoid port as well as 2 additional 5 mm ports in the right upper abdomen. The gallbladder was then identified and was noted to be moderately inflamed. I was able to place a grasper at the dome of the gallbladder and this was retracted anterior and cephalad up over the liver. A 2nd retractor was then placed at the infundibulum and retracted laterally, this allowed visualization of the triangle of Calot. I then was able to visualize the cystic duct in its entirety from its proximal insertion into the gallbladder, to its distal junction with the common hepatic/common bile duct junction. At this point, I carefully skeletonized the proximal cystic duct with the [place] dissector. I then clipped and transected the proximal cystic duct. Next I visualized the cystic artery. Again the artery was skeletonized, clipped, and transected. I then used the Bovie cautery to take down the peritoneal attachments of the gallbladder off the liver bed. Once the gallbladder specimen was completely detached, an endo-pouch was placed through the 12 mm port site. I then placed the gallbladder specimen into the Endo pouch and removed the endo-pouch from the 12 mm port site. The specimen will now be sent to pathology for further review. I then copiously irrigated the right upper quadrant. Hemostasis was noted in the liver bed, the clips were noted to be in good position on both the cystic duct stump and the cystic artery stump. No other pathology was noted in the right upper quadrant. I then moved the laparoscope to the subxiphoid port. No iatrogenic injury or other pathology was noted in the lower abdomen. I then closed the 12 mm trocar site under direct visualization using the Stuart cone and 0 Vicryl suture. At this point, the abdomen was desufflated and all ports removed. All port sites were then closed with 4.O Monocryl subcuticular sutures. Dermabond was placed on each incision. The patient tolerated the procedure well, was extubated in the operating room postoperative and will be transferred to the recovery room in stable condition Estimated Blood Loss 5 Drains No Packing No Pathology Yes Complications No immediate complications Condition Stable Disposition PACU [facility] Billing Surgery - Charge Forward: Surgery Billing
[2024-06-27] MEDS: fentaNYL CITRATE INJ (*CRX) 100 MCG/2 ML VIAL 25 MCG IV PUSH ×2 (09:15→09:20)
[2024-06-27] MEDS: ENOXAPARIN 40 MG/0.4 ML SYRINGE SUB-Q (10:56)
[2024-06-27] MEDS: hydroCHLOROthiazide 12.5 MG CAPSULE PO (10:56)
[2024-06-27] MEDS: MULTIVITAMINS THERAPEUTIC TAB (*BKC) 1 TABLET PO (10:56)
[2024-06-27] MEDS: lisinopriL 20 MG TABLET PO (10:56)
[2024-06-27] MEDS: PANTOPRAZOLE SODIUM IV 40 MG VIAL IV PUSH (10:57)
--- NOTE | 2024-06-27 13:13 | P.PNIM_ITS ---
Progress Note: A&P Assessment and Plan (1) SIRS (systemic inflammatory response syndrome): Code(s): R65.10 - Systemic inflammatory response syndrome (SIRS) of non-infectious origin without acute organ dysfunction Status: Acute Assessment and Plan: Meets SIRS criteria: leukocytosis, elevated liver enzymes, chills with low grade fever - LR 150 ml/hr IV - blood cultures drawn on 06/21: NGTD - Antibiotics: Zosyn 3.375 mg every 6 hours -continue (2) Pancreatitis: Code(s): K85.90 - Acute pancreatitis without necrosis or infection, unspecified Status: Acute Assessment and Plan: - Lipase 3115 on admission, now 377 on am labs - Tot bili 6.8, AST 60, ALT 90, Alk phos 292 - GGT elevated 326 - Blood cultures obtained on 06/21: preliminary - NGTD - CT abdomen/pelvis: Mild esophagitis/gastritis. Suggestion of mild gallbladder inflammatory change, correlate with biliary labs. Mild peripancreatic and upper mesenteric fat stranding, may reflect a component of pancreatitis. Cystitis versus chronic urinary bladder wall thickening from outlet obstruction. - MRCP: Acute interstitial pancreatitis and small pleural effusions. Gallbladder contracted. - Abdomen US: mildly dilated common duct - Diet: NPO - Zosyn 3.375 mg every 6 hours - Monitor vital signs, I and O's, check stool output, neuro status and patient is a fall risk - Monitor serum electrolytes and CBC - ED physician spoke with the on-call renewable energy trader who thinks the patient would benefit endoscopic ultrasound and recommended transfer to tertiary care facility. He was accepted by Dr. Sands of the medicine service at [facility]. - GI consulted, appreciate recommendations possible GS pancreatitis (noted sludge in GB), leukocytosis ? cholangitis- will need to get MRCP to assess if biliary stones/sludge, if negative then patient will need EUS to assess if any other abnormality in biliary system he has been accepted in another hospital in case MRCP is not helpful - Surgery consulted, appreciate recommendations Will await GI recommendations regarding possible ERCP. RUQ US did show GB sludge. Further workup will help determine need for interval cholecystectomy. Continue medical management with IV fluids 06/26- NPO at midnight 06/27- Laparoscopic cholecystectomy with DR Wu today (3) Elevated LFTs: Code(s): R79.89 - Other specified abnormal findings of blood chemistry Status: Acute Assessment and Plan: hepatitis panel negative LFTs slightly improved on am labs see plan above #1 (4) Esophagitis with gastritis: Code(s): K29.70 - Gastritis, unspecified, without bleeding; K20.90 - Esophagitis, unspecified without bleeding Status: Acute Assessment and Plan: - CT abdomen/pelvis: Mild esophagitis/gastritis. Suggestion of mild gallbladder inflammatory change, correlate with biliary labs. Mild peripancreatic and upper mesenteric fat stranding, may reflect a component of pancreatitis. Cystitis versus chronic urinary bladder wall thickening from outlet obstruction. (5) Hypertension: Code(s): I10 - Essential (primary) hypertension Status: Acute Assessment and Plan: Chronic, continue home medications - Lisinopril 20 mg daily and HCTZ 12.5 mg daily - Hydralazine 10 mg IV PRN for systolic > 180 - Blood pressures remain stable, continue to monitor (6) Obstructive sleep apnea: Code(s): G47.33 - Obstructive sleep apnea (adult) (pediatric) Status: Acute Assessment and Plan: CPAP Time Spent With Patient Time with patient: 25 - 35 minutes Subjective Date/time seen: 06/27/24 13:13 Interval history: Laparoscopic cholecystectomy today with DR Wu Review of Systems Review of Systems: 12 systems were reviewed and are negativ e except for as per HPI. All systems reviewed & are unremarkable except as noted in HPI and below Exam Narrative: General: male in no acute respiratory distress who is nontoxic appearing, lying semi recumbent in bed. HEENT: Normocephalic. Atraumatic. Extraocular movement intact. Sclera clear and anicteric. No facial asymmetry. Chest: Lungs are clear to auscultation bilaterally. No wheezes or crackles. CV: Heart was regular rate and rhythm. S1/S2. No murmurs, gallops, or rubs. Abd: Abdomen was soft. Tender generalized. Distended. Positive bowel sounds. Ext: No clubbing, cyanosis, or edema. 2+ DP pulses bilaterally. Neuro: Patient is alert and oriented x4. Speech is clear. Const: General: comfortable Objective Data Vital Signs Vital Signs: Vital Signs - 24 hr 06/26/24 14:00 06/26/24 22:00 06/26/24 23:06 Temperature 97.3 F L 98.1 F Pulse Rate 76 83 90 Respiratory Rate 17 16 17 Blood Pressure 152/81 H 156/90 H Pulse Oximetry 100 99 97 Oxygen Delivery Autopap Oxygen Flow Rate Fraction of Inspired Oxygen 06/26/24 23:06 06/27/24 05:48 06/27/24 06:44 Temperature 98 F 98.1 F Pulse Rate 74 85 Respiratory Rate 18 18 Blood Pressure 172/80 H 165/80 H Pulse Oximetry 97 99 98 Oxygen Delivery Autopap Room Air Oxygen Flow Rate Fraction of Inspired Oxygen 21 06/27/24 08:31 06/27/24 08:45 06/27/24 08:53 Temperature 99.1 F Pulse Rate 86 83 Respiratory Rate 14 14 Blood Pressure 156/82 H 151/82 H Pulse Oximetry 99 100 Oxygen Delivery Simple Face Mask Simple Face Mask Room Air Oxygen Flow Rate 6 6 Fraction of Inspired Oxygen 06/27/24 09:00 06/27/24 09:15 06/27/24 09:30 Temperature 97.7 F Pulse Rate 84 82 87 Respiratory Rate 14 16 16 Blood Pressure 158/81 H 148/90 H 152/82 H Pulse Oximetry 97 94 94 Oxygen Delivery Room Air Room Air Room Air Oxygen Flow Rate Fraction of Inspired Oxygen 06/27/24 10:47 Temperature 97.1 F L Pulse Rate 95 Respiratory Rate 16 Blood Pressure 170/78 H Pulse Oximetry 97 Oxygen Delivery Oxygen Flow Rate Fraction of Inspired Oxygen Intake/Output Intake/Output: Intake & Output 06/24/24 06/25/24 06/26/24 06/27/24 23:59 23:59 23:59 23:59 Intake Total 3200 4624 5068 1200 Output Total 2700 3450 1500 1000 Balance 500 1174 3568 200 Meds/Results Medications: Active Medications Generic Name Dose Route Start Last Admin Trade Name Freq PRN Reason Stop Dose Admin Acetaminophen 650 mg 06/22/24 22:43 Acetaminophen 325 Mg Tablet PO Q6H PRN Mild Pain (1-3) or Fever Hydrocodone Bitart/Acetaminophen 1 tab 06/27/24 09:46 Hydrocodone/Acetaminophen (*Crx) 5-325 Mg Tablet PO Q4H PRN Pain Rated 4-6 Enoxaparin Sodium 40 mg 06/23/24 09:00 06/27/24 10:56 Enoxaparin 40 Mg/0.4 Ml Syringe SUB-Q 40 mg DAILY ARMIN Administration Hydralazine HCl 10 mg 06/24/24 14:43 Hydralazine Hcl 20 Mg/Ml Vial IV PUSH Q8H PRN Blood Pressure - High Hydrochlorothiazide 12.5 mg 06/23/24 09:00 06/27/24 10:56 Hydrochlorothiazide 12.5 Mg Capsule PO 12.5 mg QAM ARMIN Administration Piperacillin/Tazobactam/Dextrose 3.375 gm in 50 mls @ 100 mls/hr 06/23/24 00:00 06/27/24 12:41 Zosyn 3.375 Gm/Ns 50 Ml IVPB 100 mls/hr Q6H ARMIN Administration Lactated Ringer's 1,000 mls @ 100 mls/hr 06/22/24 22:45 06/27/24 06:10 Lr - Lactated Ringers Iv IV CONT 0 mls/hr .Q10H ARMIN Infusion Lisinopril 20 mg 06/23/24 09:00 06/27/24 10:56 Lisinopril 20 Mg Tablet PO 20 mg QAM ARMIN Administration Morphine Sulfate 4 mg 06/22/24 22:44 06/24/24 12:31 Morphine Sulfate (*Crx) 4 Mg/Ml Inj IV PUSH 4 mg Q2H PRN Administration Pain 7-10 Morphine Sulfate 2 mg 06/22/24 22:42 06/25/24 05:58 Morphine Sulfate (*Crx) 2 Mg/Ml Inj IV PUSH 2 mg Q4H PRN Administration Pain Rated 4-6 Multivitamins Therapeutic 1 tablet 06/23/24 09:00 06/27/24 10:56 Multivitamins Therapeutic Tab (*Bkc) PO 1 tablet DAILY ARMIN Administration Ondansetron HCl 4 mg 06/22/24 18:09 06/26/24 22:05 Ondansetron Inj 4 Mg/2 Ml Vial IV PUSH 4 mg Q4H PRN Administration Nausea Pantoprazole Sodium 40 mg 06/23/24 09:00 06/27/24 10:57 Pantoprazole Sodium Iv 40 Mg Vial IV PUSH 40 mg QAM ARMIN Administration Radiology Results: ITS Impressions Abdomen/Pelvis CT 06/21/24 16:35 IMPRESSION: Mild esophagitis/gastritis. Suggestion of mild gallbladder inflammatory change, correlate with biliary labs. Mild peripancreatic and upper mesenteric fat stranding, may reflect a component of pancreatitis. Correlate with pancreatic labs. Cystitis versus chronic urinary bladder wall thickening from outlet obstruction. Abdomen Ultrasound 06/23/24 08:49 IMPRESSION: 1. Mildly dilated common duct. MRCP 06/23/24 17:17 IMPRESSION: 1. Acute interstitial pancreatitis. 2. Small pleural effusions. Labs Labs: Laboratory Results - last 24 hr 06/27/24 04:58 WBC 22.7 H RBC 5.36 Hgb 11.6 L Hct 34.2 L MCV 63.8 L MCH 21.6 L MCHC 33.9 RDW 17.5 H Plt Count 520 H MPV 9.0 Immature Gran % (Auto) 2.1 H Neut % (Auto) 81.2 H Lymph % (Auto) 8.8 L [place] % (Auto) 6.2 Eos % (Auto) 1.2 Baso % (Auto) 0.5 Lymph # (Auto) 1.99 [place] # (Auto) 1.4 H Eos # (Auto) 0.3 Baso # (Auto) 0.1 Abs Immat Gran (auto) 0.47 H Absolute Neuts (auto) 18.4 H Absolute Nucleated RBC 0.030 H Nucleated RBC % 0.1 Platelet Estimate Increased Hypochromasia 2+ Target Cells 3+ Schistocytes None seen Sodium 143 Potassium 3.8 Chloride 100 Carbon Dioxide 33 H Anion Gap 10 BUN 10 Creatinine 0.96 Estim Creat Clear Calc 98 Estimated GFR > 60 Glucose 122 H Calcium 9.1 Total Bilirubin 3.3 H AST 68 H ALT 105 H Alkaline Phosphatase 354 H Total Protein 8.0 Albumin 3.4 L Quality VTE Prophylaxis VTE prophylaxis: pharmacologic ordered
--- NOTE | 2024-06-27 13:55 | WPDGIPROGNO ---
Progress Note: A&P Assessment and Plan (1) Pancreatitis: Code(s): K85.90 - Acute pancreatitis without necrosis or infection, unspecified Status: Acute Assessment and Plan: clinically much better, underwent lap brooks tolerating liquid diet (2) Elevated LFTs: Code(s): R79.89 - Other specified abnormal findings of blood chemistry Status: Acute Assessment and Plan: probably from pancreatitis lft trending down can repeat as outpatient (3) Abdominal pain: Code(s): R10.9 - Unspecified abdominal pain Status: Acute Assessment and Plan: only from surgery (4) Leukocytosis: Code(s): D72.829 - Elevated white blood cell count, unspecified Status: Acute Subjective Date/time seen: 06/27/24 13:55 Interval history: s/p lap brooks, recovering and already had liquid diet Review of Systems Review of Systems: All systems reviewed & are unremarkable except as noted in HPI and below Exam Const: General: comfortable and no acute distress HENMT: Face/Nose/Sinus: Normal nares present Eyes: General: appearance normal, both eyes and all related structures Neck: Neck: supple Resp: Auscultation: clear to auscultation bilaterally Cardio: Rate: regular rate Rhythm: regular rhythm GI: GI Palp: Yes Soft to palpation and No Guarding due to palpation present (GI) Auscultation: normal bowel sounds Other: minimal pain, expected from surgery Skin: Wounds: no wounds Neuro: Speech: normal speech Motor exam (neuro): 5/5 motor strength present throughout Extrem: General: normal to inspection Psych: Mental Status: mental status grossly normal Objective Data Vital Signs Vital Signs: Vital Signs - 24 hr 06/26/24 14:00 06/26/24 22:00 06/26/24 23:06 Temperature 97.3 F L 98.1 F Pulse Rate 76 83 90 Respiratory Rate 17 16 17 Blood Pressure 152/81 H 156/90 H Pulse Oximetry 100 99 97 Oxygen Delivery Autopap Oxygen Flow Rate Fraction of Inspired Oxygen 06/26/24 23:06 06/27/24 05:48 06/27/24 06:44 Temperature 98 F 98.1 F Pulse Rate 74 85 Respiratory Rate 18 18 Blood Pressure 172/80 H 165/80 H Pulse Oximetry 97 99 98 Oxygen Delivery Autopap Room Air Oxygen Flow Rate Fraction of Inspired Oxygen 21 06/27/24 08:31 06/27/24 08:45 06/27/24 08:53 Temperature 99.1 F Pulse Rate 86 83 Respiratory Rate 14 14 Blood Pressure 156/82 H 151/82 H Pulse Oximetry 99 100 Oxygen Delivery Simple Face Mask Simple Face Mask Room Air Oxygen Flow Rate 6 6 Fraction of Inspired Oxygen 06/27/24 09:00 06/27/24 09:15 06/27/24 09:30 Temperature 97.7 F Pulse Rate 84 82 87 Respiratory Rate 14 16 16 Blood Pressure 158/81 H 148/90 H 152/82 H Pulse Oximetry 97 94 94 Oxygen Delivery Room Air Room Air Room Air Oxygen Flow Rate Fraction of Inspired Oxygen 06/27/24 10:47 Temperature 97.1 F L Pulse Rate 95 Respiratory Rate 16 Blood Pressure 170/78 H Pulse Oximetry 97 Oxygen Delivery Oxygen Flow Rate Fraction of Inspired Oxygen Intake/Output Intake/Output: Intake & Output 06/24/24 06/25/24 06/26/24 06/27/24 23:59 23:59 23:59 23:59 Intake Total 3200 4624 5068 1200 Output Total 2700 3450 1500 1000 Balance 500 1174 3568 200 Meds/Results Medications: Active Medications Generic Name Dose Route Start Last Admin Trade Name Freq PRN Reason Stop Dose Admin Acetaminophen 650 mg 06/22/24 22:43 Acetaminophen 325 Mg Tablet PO Q6H PRN Mild Pain (1-3) or Fever Hydrocodone Bitart/Acetaminophen 1 tab 06/27/24 09:46 Hydrocodone/Acetaminophen (*Crx) 5-325 Mg Tablet PO Q4H PRN Pain Rated 4-6 Enoxaparin Sodium 40 mg 06/23/24 09:00 06/27/24 10:56 Enoxaparin 40 Mg/0.4 Ml Syringe SUB-Q 40 mg DAILY ARMIN Administration Hydralazine HCl 10 mg 06/24/24 14:43 Hydralazine Hcl 20 Mg/Ml Vial IV PUSH Q8H PRN Blood Pressure - High Hydrochlorothiazide 12.5 mg 06/23/24 09:00 06/27/24 10:56 Hydrochlorothiazide 12.5 Mg Capsule PO 12.5 mg QAM ARMIN Administration Piperacillin/Tazobactam/Dextrose 3.375 gm in 50 mls @ 100 mls/hr 06/23/24 00:00 06/27/24 12:41 Zosyn 3.375 Gm/Ns 50 Ml IVPB 100 mls/hr Q6H ARMIN Administration Lactated Ringer's 1,000 mls @ 100 mls/hr 06/22/24 22:45 06/27/24 06:10 Lr - Lactated Ringers Iv IV CONT 0 mls/hr .Q10H ARMIN Infusion Lisinopril 20 mg 06/23/24 09:00 06/27/24 10:56 Lisinopril 20 Mg Tablet PO 20 mg QAM ARMIN Administration Morphine Sulfate 4 mg 06/22/24 22:44 06/24/24 12:31 Morphine Sulfate (*Crx) 4 Mg/Ml Inj IV PUSH 4 mg Q2H PRN Administration Pain 7-10 Morphine Sulfate 2 mg 06/22/24 22:42 06/25/24 05:58 Morphine Sulfate (*Crx) 2 Mg/Ml Inj IV PUSH 2 mg Q4H PRN Administration Pain Rated 4-6 Multivitamins Therapeutic 1 tablet 06/23/24 09:00 06/27/24 10:56 Multivitamins Therapeutic Tab (*Bkc) PO 1 tablet DAILY ARMIN Administration Ondansetron HCl 4 mg 06/22/24 18:09 06/26/24 22:05 Ondansetron Inj 4 Mg/2 Ml Vial IV PUSH 4 mg Q4H PRN Administration Nausea Pantoprazole Sodium 40 mg 06/23/24 09:00 06/27/24 10:57 Pantoprazole Sodium Iv 40 Mg Vial IV PUSH 40 mg QAM ARMIN Administration Radiology Results: ITS Impressions Abdomen/Pelvis CT 06/21/24 16:35 IMPRESSION: Mild esophagitis/gastritis. Suggestion of mild gallbladder inflammatory change, correlate with biliary labs. Mild peripancreatic and upper mesenteric fat stranding, may reflect a component of pancreatitis. Correlate with pancreatic labs. Cystitis versus chronic urinary bladder wall thickening from outlet obstruction. Abdomen Ultrasound 06/23/24 08:49 IMPRESSION: 1. Mildly dilated common duct. MRCP 06/23/24 17:17 IMPRESSION: 1. Acute interstitial pancreatitis. 2. Small pleural effusions. Labs Labs: Laboratory Results - last 24 hr 06/27/24 04:58 WBC 22.7 H RBC 5.36 Hgb 11.6 L Hct 34.2 L MCV 63.8 L MCH 21.6 L MCHC 33.9 RDW 17.5 H Plt Count 520 H MPV 9.0 Immature Gran % (Auto) 2.1 H Neut % (Auto) 81.2 H Lymph % (Auto) 8.8 L [place] % (Auto) 6.2 Eos % (Auto) 1.2 Baso % (Auto) 0.5 Lymph # (Auto) 1.99 [place] # (Auto) 1.4 H Eos # (Auto) 0.3 Baso # (Auto) 0.1 Abs Immat Gran (auto) 0.47 H Absolute Neuts (auto) 18.4 H Absolute Nucleated RBC 0.030 H Nucleated RBC % 0.1 Platelet Estimate Increased Hypochromasia 2+ Target Cells 3+ Schistocytes None seen Sodium 143 Potassium 3.8 Chloride 100 Carbon Dioxide 33 H Anion Gap 10 BUN 10 Creatinine 0.96 Estim Creat Clear Calc 98 Estimated GFR > 60 Glucose 122 H Calcium 9.1 Total Bilirubin 3.3 H AST 68 H ALT 105 H Alkaline Phosphatase 354 H Total Protein 8.0 Albumin 3.4 L
[2024-06-27] MEDS: HYDROcodone/acetaminophen (*CRX) 5-325 MG TABLET 1 TAB PO (20:43)
[2024-06-28] MEDS: PIPERACILLN/TAZ 3.375GM/NS50ML 3.375 GM/50 ML BAG IVPB ×5 (00:58→23:08)
[2024-06-28] MEDS: HYDROcodone/acetaminophen (*CRX) 5-325 MG TABLET 1 TAB PO ×2 (05:44→16:05)
[2024-06-28 06:00] VITALS: BP 155/79; PULSE 89; RESP 20; TEMP 36.8; O2SAT 98
[2024-06-28 06:06] LABS: Basophils Absolute Auto 0.1 K/mm3 (0.0-0.1); Basophils Percent Auto 0.3 % (0.2-1.2); Eosinophils Absolute Auto 0.2 K/mm3 (0-0.3); Eosinophils Percent Auto 0.6 % (0-4.4); Hemoglobin 11.2 g/dL (14.0-18.0); Immature Granulocyte Absolute 0.42 K/mm3 (0.00-0.031); Immature Granulocyte Percent A 1.8 % (0-0.5); Lymphocytes Absolute Auto 2.93 K/mm3 (0.9-3.2); Lymphocytes Percent Auto 12.3 % (18.3-44.2); Mean Corpuscular HGB Conc 32.9 g/dl (32-36); Mean Corpuscular Hemoglobin 21.2 pg (26-34); Mean Corpuscular Volume 64.4 fl (80-100); Mean Platelet Volume 9.6 fl (7.4-10.4); Monocytes Absolute Auto 1.5 K/mm3 (0.1-0.6); Monocytes Percent Auto 6.1 % (2.6-8.5); Neutrophils Absolute Auto 18.7 K/mm3 (1.3-6.7); Neutrophils Percent Auto 78.9 % (45.5-73.1); Nucleated Red Blood Cells Perc 0.1 % (0.0-0.2); Platelet Count Result 535 k/mm3 (150-375); Red Blood Count 5.28 M/mm3 (4.6-6.20); Red Cell Distribution Width 18.1 % (11.5-14.5); White Blood Count 23.7 K/mm3 (4.5-10.0)
[2024-06-28 06:31] LABS: Alanine Aminotransferase 139 U/L (6-50); Albumin Level 3.3 g/dL (3.5-5.1); Alkaline Phosphatase 338 U/L (38-126); Anion Gap 10 mmol/L (4-12); Aspartate Amino Transferase 113 U/L (17-59); Bilirubin,Total 2.7 mg/dL (0.2-1.3); Blood Urea Nitrogen 15 mg/dL (9-20); Calcium 8.4 mg/dL (8.4-10.2); Carbon Dioxide 30 mmol/L (22-30); Chloride 100 mmol/L (98-107); Estimated CRCL calculation 100 ml/min; Estimated Glomerular Filt Rate > 60; Glucose 100 mg/dL (65-110); Potassium 2.8 mmol/L (3.4-5.0); Sodium 140 mmol/L (137-145)
[2024-06-28 06:49] LABS: Anisocytosis 1+; Hypochromasia 2+; Platelet Estimate Increased (Adequate); Schistocytes None Seen; Target Cells 3+
[2024-06-28] MEDS: POTASSIUM CHLORIDE 20 MEQ ER TABLET 40 MEQ PO ×2 (06:50→08:42)
[2024-06-28] MEDS: LACTATED RINGERS 1,000 ML 100 ML IV CONT ×2 (07:45→21:19)
[2024-06-28] MEDS: MULTIVITAMINS THERAPEUTIC TAB (*BKC) 1 TABLET PO (08:41)
[2024-06-28] MEDS: hydroCHLOROthiazide 12.5 MG CAPSULE PO (08:41)
[2024-06-28] MEDS: lisinopriL 20 MG TABLET PO (08:41)
[2024-06-28] MEDS: ENOXAPARIN 40 MG/0.4 ML SYRINGE SUB-Q (08:44)
[2024-06-28] MEDS: PANTOPRAZOLE SODIUM IV 40 MG VIAL IV PUSH (08:45)
--- NOTE | 2024-06-28 10:13 | PM.IMPN ---
Progress Note: A&P Assessment and Plan (1) SIRS (systemic inflammatory response syndrome): Code(s): R65.10 - Systemic inflammatory response syndrome (SIRS) of non-infectious origin without acute organ dysfunction Status: Acute Assessment and Plan: Meets SIRS criteria: leukocytosis, elevated liver enzymes, chills with low grade fever - LR 150 ml/hr IV - blood cultures drawn on 06/21: NGTD - Antibiotics: Zosyn 3.375 mg every 6 hours -continue tolerating diet - will stop v fluids tonight and monitor still leukocytosis- monitor (2) Pancreatitis: Code(s): K85.90 - Acute pancreatitis without necrosis or infection, unspecified Status: Acute Assessment and Plan: - Lipase 3115 on admission, now 377 on am labs - Tot bili 6.8, AST 60, ALT 90, Alk phos 292 - GGT elevated 326 - Blood cultures obtained on 06/21: preliminary - NGTD - CT abdomen/pelvis: Mild esophagitis/gastritis. Suggestion of mild gallbladder inflammatory change, correlate with biliary labs. Mild peripancreatic and upper mesenteric fat stranding, may reflect a component of pancreatitis. Cystitis versus chronic urinary bladder wall thickening from outlet obstruction. - MRCP: Acute interstitial pancreatitis and small pleural effusions. Gallbladder contracted. - Abdomen US: mildly dilated common duct - Diet: NPO - Zosyn 3.375 mg every 6 hours - Monitor vital signs, I and O's, check stool output, neuro status and patient is a fall risk - Monitor serum electrolytes and CBC - ED physician spoke with the on-call terminal gauger who thinks the patient would benefit endoscopic ultrasound and recommended transfer to tertiary care facility. He was accepted by Dr. Sands of the medicine service at [facility]. - GI consulted, appreciate recommendations possible GS pancreatitis (noted sludge in GB), leukocytosis ? cholangitis- will need to get MRCP to assess if biliary stones/sludge, if negative then patient will need EUS to assess if any other abnormality in biliary system he has been accepted in another hospital in case MRCP is not helpful - Surgery consulted, appreciate recommendations Will await GI recommendations regarding possible ERCP. RUQ US did show GB sludge. Further workup will help determine need for interval cholecystectomy. Continue medical management with IV fluids 06/26- NPO at midnight 06/27- Laparoscopic cholecystectomy with DR Wu today 06/28- pain is well controlled, no n/v/d. tolerating po fluids (3) Elevated LFTs: Code(s): R79.89 - Other specified abnormal findings of blood chemistry Status: Acute Assessment and Plan: hepatitis panel negative LFTs slightly improved on am labs see plan above #1 (4) Esophagitis with gastritis: Code(s): K29.70 - Gastritis, unspecified, without bleeding; K20.90 - Esophagitis, unspecified without bleeding Status: Acute Assessment and Plan: - CT abdomen/pelvis: Mild esophagitis/gastritis. Suggestion of mild gallbladder inflammatory change, correlate with biliary labs. Mild peripancreatic and upper mesenteric fat stranding, may reflect a component of pancreatitis. Cystitis versus chronic urinary bladder wall thickening from outlet obstruction. (5) Hypertension: Code(s): I10 - Essential (primary) hypertension Status: Acute Assessment and Plan: Chronic, continue home medications - Lisinopril 20 mg daily and HCTZ 12.5 mg daily - Hydralazine 10 mg IV PRN for systolic > 180 - Blood pressures remain stable, continue to monitor (6) Obstructive sleep apnea: Code(s): G47.33 - Obstructive sleep apnea (adult) (pediatric) Status: Acute Assessment and Plan: CPAP (7) Hypokalemia: Code(s): E87.6 - Hypokalemia Status: Acute Assessment and Plan: k 2.8 IV k replacement x 2 ordered per overnight MD -recheck and replace if needed mg checked and 2.4 Time Spent With Patient Time with patient: 25 - 35 minutes Subjective Date/time seen: 06/28/24 10:13 Interval history: s/p lap brooks on 06/27 on liquid diet surgery and GI following pt is comfortable, tolerating diet well, no fever, chills Review of Systems Review of Systems: 12 systems were reviewed and are negative except for as per HPI. All systems reviewed & are unremarkable except as noted in HPI and below Exam Narrative: General: male in no acute respiratory distress who is nontoxic appearing, lying semi recumbent in bed. HEENT: Normocephalic. Atraumatic. Extraocular movement intact. Sclera clear and anicteric. No facial asymmetry. Chest: Lungs are clear to auscultation bilaterally. No wheezes or crackles. CV: Heart was regular rate and rhythm. S1/S2. No murmurs, gallops, or rubs. Abd: Abdomen was soft. Tender generalized. Distended. Positive bowel sounds. Ext: No clubbing, cyanosis, or edema. 2+ DP pulses bilaterally. Neuro: Patient is alert and oriented x4. Speech is clear. Const: General: comfortable Objective Data Vital Signs Vital Signs: Vital Signs - 24 hr 06/27/24 10:47 06/27/24 14:00 06/27/24 20:40 Temperature 97.1 F L 97.7 F Pulse Rate 95 93 93 Respiratory Rate 16 16 16 Blood Pressure 170/78 H 167/63 H Pulse Oximetry 97 98 98 Oxygen Delivery Room Air Fraction of Inspired Oxygen 21 06/27/24 22:00 06/28/24 06:00 Temperature 97.6 F 98.2 F Pulse Rate 87 89 Respiratory Rate 16 20 Blood Pressure 135/76 155/79 H Pulse Oximetry 99 98 Oxygen Delivery Fraction of Inspired Oxygen Intake/Output Intake/Output: Intake & Output 06/25/24 06/26/24 06/27/24 06/28/24 23:59 23:59 23:59 23:59 Intake Total 4624 5068 1780 1480 Output Total 3450 1500 2500 1200 Balance 1174 3568 -720 280 Meds/Results Medications: Active Medications Generic Name Dose Route Start Last Admin Trade Name Freq PRN Reason Stop Dose Admin Acetaminophen 650 mg 06/22/24 22:43 Acetaminophen 325 Mg Tablet PO Q6H PRN Mild Pain (1-3) or Fever Hydrocodone Bitart/Acetaminophen 1 tab 06/27/24 09:46 06/28/24 05:44 Hydrocodone/Acetaminophen (*Crx) 5-325 Mg Tablet PO 1 tab Q4H PRN Administration Pain Rated 4-6 Enoxaparin Sodium 40 mg 06/23/24 09:00 06/28/24 08:44 Enoxaparin 40 Mg/0.4 Ml Syringe SUB-Q 40 mg DAILY ARMIN Administration Hydralazine HCl 10 mg 06/24/24 14:43 Hydralazine Hcl 20 Mg/Ml Vial IV PUSH Q8H PRN Blood Pressure - High Hydrochlorothiazide 12.5 mg 06/23/24 09:00 06/28/24 08:41 Hydrochlorothiazide 12.5 Mg Capsule PO 12.5 mg QAM ARMIN Administration Piperacillin/Tazobactam/Dextrose 3.375 gm in 50 mls @ 100 mls/hr 06/23/24 00:00 06/28/24 05:44 Zosyn 3.375 Gm/Ns 50 Ml IVPB 100 mls/hr Q6H ARMIN Administration Lactated Ringer's 1,000 mls @ 100 mls/hr 06/22/24 22:45 06/28/24 07:45 Lr - Lactated Ringers Iv IV CONT 100 mls/hr .Q10H ARMIN Administration Lisinopril 20 mg 06/23/24 09:00 06/28/24 08:41 Lisinopril 20 Mg Tablet PO 20 mg QAM ARMIN Administration Morphine Sulfate 4 mg 06/22/24 22:44 06/24/24 12:31 Morphine Sulfate (*Crx) 4 Mg/Ml Inj IV PUSH 4 mg Q2H PRN Administration Pain 7-10 Morphine Sulfate 2 mg 06/22/24 22:42 06/25/24 05:58 Morphine Sulfate (*Crx) 2 Mg/Ml Inj IV PUSH 2 mg Q4H PRN Administration Pain Rated 4-6 Multivitamins Therapeutic 1 tablet 06/23/24 09:00 06/28/24 08:41 Multivitamins Therapeutic Tab (*Bkc) PO 1 tablet DAILY ARMIN Administration Ondansetron HCl 4 mg 06/22/24 18:09 06/26/24 22:05 Ondansetron Inj 4 Mg/2 Ml Vial IV PUSH 4 mg Q4H PRN Administration Nausea Pantoprazole Sodium 40 mg 06/23/24 09:00 06/28/24 08:45 Pantoprazole Sodium Iv 40 Mg Vial IV PUSH 40 mg QAM ARMIN Administration Radiology Results: ITS Impressions Abdomen/Pelvis CT 06/21/24 16:35 IMPRESSION: Mild esophagitis/gastritis. Suggestion of mild gallbladder inflammatory change, correlate with biliary labs. Mild peripancreatic and upper mesenteric fat stranding, may reflect a component of pancreatitis. Correlate with pancreatic labs. Cystitis versus chronic urinary bladder wall thickening from outlet obstruction. Abdomen Ultrasound 06/23/24 08:49 IMPRESSION: 1. Mildly dilated common duct. MRCP 06/23/24 17:17 IMPRESSION: 1. Acute interstitial pancreatitis. 2. Small pleural effusions. Labs Labs: Laboratory Results - last 24 hr 06/28/24 06/28/24 05:19 05:20 WBC 23.7 H RBC 5.28 Hgb 11.2 L Hct 34.0 L MCV 64.4 L MCH 21.2 L MCHC 32.9 RDW 18.1 H Plt Count 535 H MPV 9.6 Immature Gran % (Auto) 1.8 H Neut % (Auto) 78.9 H Lymph % (Auto) 12.3 L [place] % (Auto) 6.1 Eos % (Auto) 0.6 Baso % (Auto) 0.3 Lymph # (Auto) 2.93 [place] # (Auto) 1.5 H Eos # (Auto) 0.2 Baso # (Auto) 0.1 Abs Immat Gran (auto) 0.42 H Absolute Neuts (auto) 18.7 H Absolute Nucleated RBC 0.020 H Nucleated RBC % 0.1 Platelet Estimate Increased Hypochromasia 2+ Anisocytosis 1+ Target Cells 3+ Schistocytes None seen Sodium 140 Potassium 2.8 L* Chloride 100 Carbon Dioxide 30 Anion Gap 10 BUN 15 D Creatinine 0.92 Estim Creat Clear Calc 100 Estimated GFR > 60 Glucose 100 Calcium 8.4 Total Bilirubin 2.7 H AST 113 H ALT 139 H Alkaline Phosphatase 338 H Total Protein 8.0 Albumin 3.3 L Quality VTE Prophylaxis VTE prophylaxis: pharmacologic ordered
--- NOTE | 2024-06-28 12:26 | P.PNGS_ITS ---
Progress Note: A&P Assessment and Plan (1) Gallstone pancreatitis: Code(s): K85.10 - Biliary acute pancreatitis without necrosis or infection Status: Acute Assessment and Plan: * Leukocytosis and hyperbilirubinemia persist * Continue Zosyn * Repeat Labs in AM (2) Leukocytosis: Code(s): D72.829 - Elevated white blood cell count, unspecified Status: Acute Subjective Subjective Date/Time Seen: 06/28/24 12:26 Interval history: Doing well on postop day 1. Pain controlled. Tolerating diet. Denies fevers. Exam GI: Inspection: non-distended and incision (intact with glue) GI Palp: Yes Soft to palpation, Yes Tenderness to palpation present (GI) (incisional) and No Guarding due to palpation present (GI) Auscultation: normal bowel sounds Objective Data Vital Signs Vital Signs: Vital Signs - 24 hr 06/27/24 14:00 06/27/24 20:40 06/27/24 22:00 Temperature 97.7 F 97.6 F Pulse Rate 93 93 87 Respiratory Rate 16 16 16 Blood Pressure 167/63 H 135/76 Pulse Oximetry 98 98 99 Oxygen Delivery Room Air Fraction of Inspired Oxygen 21 06/28/24 06:00 Temperature 98.2 F Pulse Rate 89 Respiratory Rate 20 Blood Pressure 155/79 H Pulse Oximetry 98 Oxygen Delivery Fraction of Inspired Oxygen Intake/Output Intake/Output: Intake & Output 06/25/24 06/26/24 06/27/24 06/28/24 23:59 23:59 23:59 23:59 Intake Total 4624 5068 1780 1480 Output Total 3450 1500 2500 1200 Balance 1174 3568 -720 280 Meds/Results Medications: Active Medications Generic Name Dose Route Start Last Admin Trade Name Freq PRN Reason Stop Dose Admin Acetaminophen 650 mg 06/22/24 22:43 Acetaminophen 325 Mg Tablet PO Q6H PRN Mild Pain (1-3) or Fever Hydrocodone Bitart/Acetaminophen 1 tab 06/27/24 09:46 06/28/24 05:44 Hydrocodone/Acetaminophen (*Crx) 5-325 Mg Tablet PO 1 tab Q4H PRN Administration Pain Rated 4-6 Enoxaparin Sodium 40 mg 06/23/24 09:00 06/28/24 08:44 Enoxaparin 40 Mg/0.4 Ml Syringe SUB-Q 40 mg DAILY ARMIN Administration Hydralazine HCl 10 mg 06/24/24 14:43 Hydralazine Hcl 20 Mg/Ml Vial IV PUSH Q8H PRN Blood Pressure - High Hydrochlorothiazide 12.5 mg 06/23/24 09:00 06/28/24 08:41 Hydrochlorothiazide 12.5 Mg Capsule PO 12.5 mg QAM ARMIN Administration Piperacillin/Tazobactam/Dextrose 3.375 gm in 50 mls @ 100 mls/hr 06/23/24 00:00 06/28/24 05:44 Zosyn 3.375 Gm/Ns 50 Ml IVPB 100 mls/hr Q6H ARMIN Administration Lactated Ringer's 1,000 mls @ 100 mls/hr 06/22/24 22:45 06/28/24 07:45 Lr - Lactated Ringers Iv IV CONT 100 mls/hr .Q10H ARMIN Administration Lisinopril 20 mg 06/23/24 09:00 06/28/24 08:41 Lisinopril 20 Mg Tablet PO 20 mg QAM ARMIN Administration Morphine Sulfate 4 mg 06/22/24 22:44 06/24/24 12:31 Morphine Sulfate (*Crx) 4 Mg/Ml Inj IV PUSH 4 mg Q2H PRN Administration Pain 7-10 Morphine Sulfate 2 mg 06/22/24 22:42 06/25/24 05:58 Morphine Sulfate (*Crx) 2 Mg/Ml Inj IV PUSH 2 mg Q4H PRN Administration Pain Rated 4-6 Multivitamins Therapeutic 1 tablet 06/23/24 09:00 06/28/24 08:41 Multivitamins Therapeutic Tab (*Bkc) PO 1 tablet DAILY ARMIN Administration Ondansetron HCl 4 mg 06/22/24 18:09 06/26/24 22:05 Ondansetron Inj 4 Mg/2 Ml Vial IV PUSH 4 mg Q4H PRN Administration Nausea Pantoprazole Sodium 40 mg 06/23/24 09:00 06/28/24 08:45 Pantoprazole Sodium Iv 40 Mg Vial IV PUSH 40 mg QAM ARMIN Administration Radiology Results: ITS Impressions Abdomen/Pelvis CT 06/21/24 16:35 IMPRESSION: Mild esophagitis/gastritis. Suggestion of mild gallbladder inflammatory change, correlate with biliary labs. Mild peripancreatic and upper mesenteric fat stranding, may reflect a component of pancreatitis. Correlate with pancreatic labs. Cystitis versus chronic urinary bladder wall thickening from outlet obstruction. Abdomen Ultrasound 06/23/24 08:49 IMPRESSION: 1. Mildly dilated common duct. MRCP 06/23/24 17:17 IMPRESSION: 1. Acute interstitial pancreatitis. 2. Small pleural effusions. Labs Labs: Laboratory Results - last 24 hr 06/28/24 06/28/24 05:19 05:20 WBC 23.7 H RBC 5.28 Hgb 11.2 L Hct 34.0 L MCV 64.4 L MCH 21.2 L MCHC 32.9 RDW 18.1 H Plt Count 535 H MPV 9.6 Immature Gran % (Auto) 1.8 H Neut % (Auto) 78.9 H Lymph % (Auto) 12.3 L [place] % (Auto) 6.1 Eos % (Auto) 0.6 Baso % (Auto) 0.3 Lymph # (Auto) 2.93 [place] # (Auto) 1.5 H Eos # (Auto) 0.2 Baso # (Auto) 0.1 Abs Immat Gran (auto) 0.42 H Absolute Neuts (auto) 18.7 H Absolute Nucleated RBC 0.020 H Nucleated RBC % 0.1 Platelet Estimate Increased Hypochromasia 2+ Anisocytosis 1+ Target Cells 3+ Schistocytes None seen Sodium 140 Potassium 2.8 L* Chloride 100 Carbon Dioxide 30 Anion Gap 10 BUN 15 D Creatinine 0.92 Estim Creat Clear Calc 100 Estimated GFR > 60 Glucose 100 Calcium 8.4 Total Bilirubin 2.7 H AST 113 H ALT 139 H Alkaline Phosphatase 338 H Total Protein 8.0 Albumin 3.3 L
[2024-06-28 13:14] LABS: Magnesium 2.4 mg/dL (1.6-2.3); Potassium 3.3 mmol/L (3.4-5.0)
[2024-06-28 14:00] VITALS: BP 143/74; PULSE 98; RESP 18; O2SAT 96
[2024-06-28 21:20] VITALS: PULSE 84; RESP 18; O2SAT 98
[2024-06-28] MEDS: SENNA/DOCUSATE SODIUM TABLET 1 TAB PO (21:20)
[2024-06-28 21:46] VITALS: BP 149/79; PULSE 84; RESP 18; TEMP 36.6; O2SAT 98
[2024-06-29] MEDS: PIPERACILLN/TAZ 3.375GM/NS50ML 3.375 GM/50 ML BAG IVPB ×2 (05:12→12:36)
[2024-06-29 06:00] VITALS: BP 168/79; PULSE 89; RESP 18; TEMP 36.3; O2SAT 99
[2024-06-29 06:06] LABS: Hematocrit 35.4 % (42.0-52.0); Hemoglobin 11.5 g/dL (14.0-18.0); Mean Corpuscular HGB Conc 32.5 g/dl (32-36); Mean Corpuscular Hemoglobin 21.5 pg (26-34); Platelet Count Result 539 k/mm3 (150-375); Red Blood Count 5.36 M/mm3 (4.6-6.20); Red Cell Distribution Width 18.7 % (11.5-14.5); White Blood Count 18.9 K/mm3 (4.5-10.0)
[2024-06-29 06:23] LABS: Alanine Aminotransferase 183 U/L (6-50); Albumin Level 3.4 g/dL (3.5-5.1); Alkaline Phosphatase 373 U/L (38-126); Aspartate Amino Transferase 118 U/L (17-59); Bilirubin,Total 2.5 mg/dL (0.2-1.3)
[2024-06-29] MEDS: hydroCHLOROthiazide 12.5 MG CAPSULE PO (10:17)
[2024-06-29] MEDS: MULTIVITAMINS THERAPEUTIC TAB (*BKC) 1 TABLET PO (10:17)
[2024-06-29] MEDS: lisinopriL 20 MG TABLET PO (10:17)
[2024-06-29] MEDS: ENOXAPARIN 40 MG/0.4 ML SYRINGE SUB-Q (10:18)
[2024-06-29] MEDS: PANTOPRAZOLE SODIUM IV 40 MG VIAL IV PUSH (10:18)
--- NOTE | 2024-06-29 11:24 | P.PNIM_ITS ---
Progress Note: A&P Assessment and Plan (1) SIRS (systemic inflammatory response syndrome): Code(s): R65.10 - Systemic inflammatory response syndrome (SIRS) of non-infectious origin without acute organ dysfunction Status: Acute Assessment and Plan: Meets SIRS criteria: leukocytosis, elevated liver enzymes, chills with low grade fever - LR 150 ml/hr IV - blood cultures drawn on 06/21: NGTD - Antibiotics: Zosyn 3.375 mg every 6 hours -continue tolerating diet - will stop v fluids tonight and monitor still leukocytosis- monitor (2) Pancreatitis: Code(s): K85.90 - Acute pancreatitis without necrosis or infection, unspecified Status: Acute Assessment and Plan: - Lipase 3115 on admission, now 377 on am labs - Tot bili 6.8, AST 60, ALT 90, Alk phos 292 - GGT elevated 326 - Blood cultures obtained on 06/21: preliminary - NGTD - CT abdomen/pelvis: Mild esophagitis/gastritis. Suggestion of mild gallbladder inflammatory change, correlate with biliary labs. Mild peripancreatic and upper mesenteric fat stranding, may reflect a component of pancreatitis. Cystitis versus chronic urinary bladder wall thickening from outlet obstruction. - MRCP: Acute interstitial pancreatitis and small pleural effusions. Gallbladder contracted. - Abdomen US: mildly dilated common duct - Diet: NPO - Zosyn 3.375 mg every 6 hours - Monitor vital signs, I and O's, check stool output, neuro status and patient is a fall risk - Monitor serum electrolytes and CBC - ED physician spoke with the on-call incinerator plant laborer who thinks the patient would benefit endoscopic ultrasound and recommended transfer to tertiary care facility. He was accepted by Dr. Sands of the medicine service at [facility]. - GI consulted, appreciate recommendations possible GS pancreatitis (noted sludge in GB), leukocytosis ? cholangitis- will need to get MRCP to assess if biliary stones/sludge, if negative then patient will need EUS to assess if any other abnormality in biliary system he has been accepted in another hospital in case MRCP is not helpful - Surgery consulted, appreciate recommendations Will await GI recommendations regarding possible ERCP. RUQ US did show GB sludge. Further workup will help determine need for interval cholecystectomy. Continue medical management with IV fluids 06/26- NPO at midnight 06/27- Laparoscopic cholecystectomy with DR Wu today 06/28- pain is well controlled, no n/v/d. tolerating po fluids (3) Elevated LFTs: Code(s): R79.89 - Other specified abnormal findings of blood chemistry Status: Acute Assessment and Plan: hepatitis panel negative LFTs slightly improved on am labs see plan above #1 (4) Esophagitis with gastritis: Code(s): K29.70 - Gastritis, unspecified, without bleeding; K20.90 - Esophagitis, unspecified without bleeding Status: Acute Assessment and Plan: - CT abdomen/pelvis: Mild esophagitis/gastritis. Suggestion of mild gallbladder inflammatory change, correlate with biliary labs. Mild peripancreatic and upper mesenteric fat stranding, may reflect a component of pancreatitis. Cystitis versus chronic urinary bladder wall thickening from outlet obst ruction. (5) Hypertension: Code(s): I10 - Essential (primary) hypertension Status: Acute Assessment and Plan: Chronic, continue home medications - Lisinopril 20 mg daily and HCTZ 12.5 mg daily - Hydralazine 10 mg IV PRN for systolic > 180 - Blood pressures remain stable, continue to monitor (6) Obstructive sleep apnea: Code(s): G47.33 - Obstructive sleep apnea (adult) (pediatric) Status: Acute Assessment and Plan: CPAP (7) Hypokalemia: Code(s): E87.6 - Hypokalemia Status: Acute Assessment and Plan: k 2.8 IV k replacement x 2 ordered per overnight MD -recheck and replace if needed mg checked and 2.4 Subjective Date/time seen: 06/29/24 11:24 Interval history: s/p lap brooks on 06/27 on liquid diet surgery and GI following pt is comfortable, tolerating diet well, no fever, chills Review of Systems Review of Systems: 12 systems were reviewed and are negativ e except for as per HPI. All systems reviewed & are unremarkable except as noted in HPI and below Exam Narrative: General: male in no acute respiratory distress who is nontoxic appearing, lying semi recumbent in bed. HEENT: Normocephalic. Atraumatic. Extraocular movement intact. Sclera clear and anicteric. No facial asymmetry. Chest: Lungs are clear to auscultation bilaterally. No wheezes or crackles. CV: Heart was regular rate and rhythm. S1/S2. No murmurs, gallops, or rubs. Abd: Abdomen was soft. Tender generalized. Distended. Positive bowel sounds. Ext: No clubbing, cyanosis, or edema. 2+ DP pulses bilaterally. Neuro: Patient is alert and oriented x4. Speech is clear. Const: General: comfortable Objective Data Vital Signs Vital Signs: Vital Signs - 24 hr 06/28/24 14:00 06/28/24 21:20 06/28/24 21:46 Temperature 97.8 F Pulse Rate 98 84 84 Respiratory Rate 18 18 18 Blood Pressure 143/74 H 149/79 H Pulse Oximetry 96 98 98 Oxygen Delivery Room Air Fraction of Inspired Oxygen 21 06/29/24 06:00 Temperature 97.3 F L Pulse Rate 89 Respiratory Rate 18 Blood Pressure 168/79 H Pulse Oximetry 99 Oxygen Delivery Fraction of Inspired Oxygen Intake/Output Intake/Output: Intake & Output 06/26/24 06/27/24 06/28/24 06/29/24 23:59 23:59 23:59 23:59 Intake Total 5068 1780 4920 660 Output Total 1500 2500 1200 500 Balance 3568 -720 3720 160 Meds/Results Medications: Active Medications Generic Name Dose Route Start Last Admin Trade Name Freq PRN Reason Stop Dose Admin Acetaminophen 650 mg 06/22/24 22:43 Acetaminophen 325 Mg Tablet PO Q6H PRN Mild Pain (1-3) or Fever Hydrocodone Bitart/Acetaminophen 1 tab 06/27/24 09:46 06/28/24 16:05 Hydrocodone/Acetaminophen (*Crx) 5-325 Mg Tablet PO 1 tab Q4H PRN Administration Pain Rated 4-6 Enoxaparin Sodium 40 mg 06/23/24 09:00 06/29/24 10:18 Enoxaparin 40 Mg/0.4 Ml Syringe SUB-Q 40 mg DAILY ARMIN Administration Hydralazine HCl 10 mg 06/24/24 14:43 Hydralazine Hcl 20 Mg/Ml Vial IV PUSH Q8H PRN Blood Pressure - High Hydrochlorothiazide 12.5 mg 06/23/24 09:00 06/29/24 10:17 Hydrochlorothiazide 12.5 Mg Capsule PO 12.5 mg QAM ARMIN Administration Piperacillin/Tazobactam/Dextrose 3.375 gm in 50 mls @ 100 mls/hr 06/23/24 00:00 06/29/24 05:12 Zosyn 3.375 Gm/Ns 50 Ml IVPB 100 mls/hr Q6H ARMIN Administration Lisinopril 20 mg 06/23/24 09:00 06/29/24 10:17 Lisinopril 20 Mg Tablet PO 20 mg QAM ARMIN Administration Morphine Sulfate 4 mg 06/22/24 22:44 06/24/24 12:31 Morphine Sulfate (*Crx) 4 Mg/Ml Inj IV PUSH 4 mg Q2H PRN Administration Pain 7-10 Morphine Sulfate 2 mg 06/22/24 22:42 06/25/24 05:58 Morphine Sulfate (*Crx) 2 Mg/Ml Inj IV PUSH 2 mg Q4H PRN Administration Pain Rated 4-6 Multivitamins Therapeutic 1 tablet 06/23/24 09:00 06/29/24 10:17 Multivitamins Therapeutic Tab (*Bkc) PO 1 tablet DAILY ARMIN Administration Ondansetron HCl 4 mg 06/22/24 18:09 06/26/24 22:05 Ondansetron Inj 4 Mg/2 Ml Vial IV PUSH 4 mg Q4H PRN Administration Nausea Pantoprazole Sodium 40 mg 06/23/24 09:00 06/29/24 10:18 Pantoprazole Sodium Iv 40 Mg Vial IV PUSH 40 mg QAM ARMIN Administration Senna/Docusate Sodium 1 tab 06/28/24 21:00 06/28/24 21:20 Senna/Docusate Sodium Tablet PO 1 tab HS ARMIN Administration Radiology Results: ITS Impressions Abdomen/Pelvis CT 06/21/24 16:35 IMPRESSION: Mild esophagitis/gastritis. Suggestion of mild gallbladder inflammatory change, correlate with biliary labs. Mild peripancreatic and upper mesenteric fat stranding, may reflect a component of pancreatitis. Correlate with pancreatic labs. Cystitis versus chronic urinary bladder wall thickening from outlet obstruction. Abdomen Ultrasound 06/23/24 08:49 IMPRESSION: 1. Mildly dilated common duct. MRCP 06/23/24 17:17 IMPRESSION: 1. Acute interstitial pancreatitis. 2. Small pleural effusions. Labs Labs: Laboratory Results - last 24 hr 06/28/24 06/29/24 12:58 05:07 WBC 18.9 H RBC 5.36 Hgb 11.5 L Hct 35.4 L MCV 66.0 L MCH 21.5 L MCHC 32.5 RDW 18.7 H Plt Count 539 H MPV 10.0 Potassium 3.3 L Magnesium 2.4 H Total Bilirubin 2.5 H Direct Bilirubin 0.0 AST 118 H ALT 183 H Alkaline Phosphatase 373 H Total Protein 8.0 Albumin 3.4 L Quality VTE Prophylaxis VTE prophylaxis: pharmacologic ordered
[2024-06-29] MEDS: ARTIFICIAL TEARS OPHTH SOLN 15 ML BOTTLE 1 DROP EACH EYE (12:36)
--- NOTE | 2024-06-29 14:05 | P.PNGS_ITS ---
Progress Note: A&P Assessment and Plan (1) Gallstone pancreatitis: Code(s): K85.10 - Biliary acute pancreatitis without necrosis or infection Status: Acute Assessment and Plan: * LFTs improved, leukocytosis slightly improved * Okay to discharge from surgical standpoint when medically stable. * Follow-up with Dr. Wu in 2 weeks (2) Leukocytosis: Code(s): D72.829 - Elevated white blood cell count, unspecified Status: Acute Subjective Subjective Date/Time Seen: 06/29/24 14:05 Interval history: Tolerating low-fat diet. Minimal postoperative pain. Denies fevers. Exam GI: Inspection: non-distended and incision (intact with glue) GI Palp: Yes Soft to palpation, Yes Tenderness to palpation present (GI) (incisional) and No Guarding due to palpation present (GI) Auscultation: normal bowel sounds Objective Data Vital Signs Vital Signs: Vital Signs - 24 hr 06/28/24 21:20 06/28/24 21:46 06/29/24 06:00 Temperature 97.8 F 97.3 F L Pulse Rate 84 84 89 Respiratory Rate 18 18 18 Blood Pressure 149/79 H 168/79 H Pulse Oximetry 98 98 99 Oxygen Delivery Room Air Fraction of Inspired Oxygen 06/29/24 10:20 Temperature Pulse Rate Respiratory Rate Blood Pressure Pulse Oximetry Oxygen Delivery Room Air Fraction of Inspired Oxygen Intake/Output Intake/Output: Intake & Output 06/26/24 06/27/24 06/28/24 06/29/24 23:59 23:59 23:59 23:59 Intake Total 5068 1780 4920 710 Output Total 1500 2500 1200 500 Balance 3568 -720 3720 210 Meds/Results Medications: Active Medications Generic Name Dose Route Start Last Admin Trade Name Freq PRN Reason Stop Dose Admin Acetaminophen 650 mg 06/22/24 22:43 Acetaminophen 325 Mg Tablet PO Q6H PRN Mild Pain (1-3) or Fever Hydrocodone Bitart/Acetaminophen 1 tab 06/27/24 09:46 06/28/24 16:05 Hydrocodone/Acetaminophen (*Crx) 5-325 Mg Tablet PO 1 tab Q4H PRN Administration Pain Rated 4-6 Artificial Tears 1 drop 06/29/24 12:01 06/29/24 12:36 Artificial Tears Ophth Soln 15 Ml Bottle EACH EYE 1 drop QID PRN Administration Dry Eye(s) Enoxaparin Sodium 40 mg 06/23/24 09:00 06/29/24 10:18 Enoxaparin 40 Mg/0.4 Ml Syringe SUB-Q 40 mg DAILY ARMIN Administration Hydralazine HCl 10 mg 06/24/24 14:43 Hydralazine Hcl 20 Mg/Ml Vial IV PUSH Q8H PRN Blood Pressure - High Hydrochlorothiazide 12.5 mg 06/23/24 09:00 06/29/24 10:17 Hydrochlorothiazide 12.5 Mg Capsule PO 12.5 mg QAM ARMIN Administration Piperacillin/Tazobactam/Dextrose 3.375 gm in 50 mls @ 100 mls/hr 06/23/24 00:00 06/29/24 12:36 Zosyn 3.375 Gm/Ns 50 Ml IVPB 100 mls/hr Q6H ARMIN Administration Lisinopril 20 mg 06/23/24 09:00 06/29/24 10:17 Lisinopril 20 Mg Tablet PO 20 mg QAM ARMIN Administration Morphine Sulfate 4 mg 06/22/24 22:44 06/24/24 12:31 Morphine Sulfate (*Crx) 4 Mg/Ml Inj IV PUSH 4 mg Q2H PRN Administration Pain 7-10 Morphine Sulfate 2 mg 06/22/24 22:42 06/25/24 05:58 Morphine Sulfate (*Crx) 2 Mg/Ml Inj IV PUSH 2 mg Q4H PRN Administration Pain Rated 4-6 Multivitamins Therapeutic 1 tablet 06/23/24 09:00 06/29/24 10:17 Multivitamins Therapeutic Tab (*Bkc) PO 1 tablet DAILY ARMIN Administration Ondansetron HCl 4 mg 06/22/24 18:09 06/26/24 22:05 Ondansetron Inj 4 Mg/2 Ml Vial IV PUSH 4 mg Q4H PRN Administration Nausea Pantoprazole Sodium 40 mg 06/23/24 09:00 06/29/24 10:18 Pantoprazole Sodium Iv 40 Mg Vial IV PUSH 40 mg QAM ARMIN Administration Senna/Docusate Sodium 1 tab 06/28/24 21:00 06/28/24 21:20 Senna/Docusate Sodium Tablet PO 1 tab HS ARMIN Administration Radiology Results: ITS Impressions Abdomen/Pelvis CT 06/21/24 16:35 IMPRESSION: Mild esophagitis/gastritis. Suggestion of mild gallbladder inflammatory change, correlate with biliary labs. Mild peripancreatic and upper mesenteric fat stranding, may reflect a component of pancreatitis. Correlate with pancreatic labs. Cystitis versus chronic urinary bladder wall thickening from outlet obstruction. Abdomen Ultrasound 06/23/24 08:49 IMPRESSION: 1. Mildly dilated common duct. MRCP 06/23/24 17:17 IMPRESSION: 1. Acute interstitial pancreatitis. 2. Small pleural effusions. Labs Labs: Laboratory Results - last 24 hr 06/29/24 05:07 WBC 18.9 H RBC 5.36 Hgb 11.5 L Hct 35.4 L MCV 66.0 L MCH 21.5 L MCHC 32.5 RDW 18.7 H Plt Count 539 H MPV 10.0 Total Bilirubin 2.5 H Direct Bilirubin 0.0 AST 118 H ALT 183 H Alkaline Phosphatase 373 H Total Protein 8.0 Albumin 3.4 L
--- NOTE | 2024-06-29 14:50 | P.DS_ITS ---
DS: Admitting Diagnosis Discharge Date 06/29 Admitting Diagnosis abd pain DS: Discharge Diagnosis Discharge Diagnosis (1) SIRS (systemic inflammatory response syndrome): Code(s): R65.10 - Systemic inflammatory response syndrome (SIRS) of non-infectious origin without acute organ dysfunction Status: Acute (2) Pancreatitis: Code(s): K85.90 - Acute pancreatitis without necrosis or infection, unspecified Status: Acute (3) Elevated LFTs: Code(s): R79.89 - Other specified abnormal findings of blood chemistry Status: Acute (4) Esophagitis with gastritis: Code(s): K29.70 - Gastritis, unspecified, without bleeding; K20.90 - Esophagitis, unspecified without bleeding Status: Acute Assessment and Plan: - (5) Hypertension: Code(s): I10 - Essential (primary) hypertension Status: Acute (6) Obstructive sleep apnea: Code(s): G47.33 - Obstructive sleep apnea (adult) (pediatric) Status: Acute (7) Hypokalemia: Code(s): E87.6 - Hypokalemia Status: Acute DS: Summary Hospital Course Hospital Course: 58-year-old male with hypertension, obstructive sleep apnea, and gastroesophageal reflux disease who presented to the emergency department via private vehicle yesterday afternoon with complaints of abdominal pain and dehydration. The patient provides the following history. 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 Over the course of the last 4 days he has developed diffuse upper abdominal pain which has been pretty constant. It is aching in nature although is occasionally sharp and stabbing. The pain does not radiate and he has not noticed any significant aggravating or alleviating factors. His appetite has been poor and he endorses nausea and occasional dry heaves. Surgery and GI were consulted. Laparoscopic cholecystectomy on 06/[address] Camacho- was on IV zosyn-will downgrade to PO antibiotics to finish the course of antibiotics- wbc slowly improving. OK to discharge with surgery and GI with a close f/u. # Gall stone Pancreatitis: - Lipase 3115 on admission, now 377 on am labs - Tot bili 6.8, AST 60, ALT 90, Alk phos 292 - GGT elevated 326 - Blood cultures obtained on 06/21: preliminary - NGTD - CT abdomen/pelvis: Mild esophagitis/gastritis. Suggestion of mild gallbladder inflammatory change, correlate with biliary labs. Mild peripancreatic and upper mesenteric fat stranding, may reflect a component of pancreatitis. Cystitis versus chronic urinary bladder wall thickening from outlet obstruction. - MRCP: Acute interstitial pancreatitis and small pleural effusions. Gallbladder contracted. - Abdomen US: mildly dilated common duct - Diet: NPO - Zosyn 3.375 mg every 6 hours - Monitor vital signs, I and O's, check stool output, neuro status and patient is a fall risk - Monitor serum electrolytes and CBC 06/27- Laparoscopic cholecystectomy with DR Camacho today 06/28- pain is well controlled, no n/v/d. tolerating po fluids 06/29 leukocytosis slightly improved- will switch to PO antibiotics and complete the course will need to f/u with few days with repeat CBC to ensure improving # Elevated LFTs: hepatitis panel negative LFTs slightly improved on am labs will order repeat blood test Status at Discharge Functional status at discharge: independent ambulation Overall status at discharge: patient is progressing back to baseline Time Spent with Patient Time attestation: Total time spent providing and/or coordinating discharge services: Time spent: Greater than 30 minutes Exam Narrative: General: male in no acute respiratory distress who is nontoxic appearing,pleasant, in no distress HEENT: Normocephalic. Atraumatic. Extraocular movement intact. Sclera clear and anicteric. No facial asymmetry. Chest: Lungs are clear to auscultation bilaterally. No wheezes or crackles. CV: Heart was regular rate and rhythm. S1/S2. No murmurs, gallops, or rubs. Abd: Abdomen was soft. Tender generalized. Distended. Positive bowel sounds. Ext: No clubbing, cyanosis, or edema. 2+ DP pulses bilaterally. Neuro: Patient is alert and oriented x4. Speech is clear. Const: General: comfortable DS: Data Data Completed and Pending Pending studies at discharge: Pending at discharge 06/27/24 08:01 Surgical [PTH] Routine Labs on day of discharge: Labs from last 24 hours 06/29/24 05:07 WBC 18.9 H RBC 5.36 Hgb 11.5 L Hct 35.4 L MCV 66.0 L MCH 21.5 L MCHC 32.5 RDW 18.7 H Plt Count 539 H MPV 10.0 Total Bilirubin 2.5 H Direct Bilirubin 0.0 AST 118 H ALT 183 H Alkaline Phosphatase 373 H Total Protein 8.0 Albumin 3.4 L Discharge Plan Discharge Attending physician on discharge: Antonio Giordano Consulting providers: Sera Cornejo; Raven Camacho Discharging Clinician: Fide Orozco Patient Disposition: Home, Self-Care Activity: as tolerated Diet: as tolerated Wound Care Instructions: incision open to air Discharge Instructions: DISCHARGE INSTRUCTION SHEET FOR HERNIA, GALLBLADDER AND APPENDIX SURGERIES DR. CAMACHO PATIENT TO TAKE HOME 1. May shower in 24 hours, no soaking in bath x 2weeks. 2. Call office for: * Wound increasingly painful or bleeding * Vomiting * Fever of greater than 101 degrees 3. If no bowel movement for three days, take 1 oz. (30 ml) Milk of Magnesia or MiraLax 17g 1 to 2 times daily. 4. No heavy lifting > 10-15 pounds x 6 weeks for hernia repairs and 2 weeks for laparoscopic cholecystectomy or appendectomy. 5. No driving for 3 days or while taking narcotic pain medications. 6. Ice to surgical site for 48 hours (30 min on, then 30 min off). 7. Up walking 10-30 minutes three times per day. 8. Resume previous home medications. 9. Follow-up 10-14 days in office for wound check or as previously scheduled. ([phone]) 10. Oral pain medications prescription to be sent to pharmacy. Take Tylenol 500mg every 6 hours and Ibuprofen 600mg every 6 hours for the first 2 days, then as needed. 11. NUTRITION: Start out by drinking fluids and increase your diet as tolerated. If you experience nausea, try dry toast, crackers, and 7-UP. If nausea or vomiting persists, contact your surgeon?s office. 12. Gallbladders-Low Fat Diet for 2 weeks (send care note of low fat diet) 13. Inguinal Hernias-wear scrotal support for 48 hours 14. Abdominal Hernias-if sent home with abdominal binder, wear for the first 2 weeks (may remove to shower or at night to sleep). Revised 05/2020 Patient Instructions: Antibiotic Form Patient Language: Pashto Stand Alone Forms: General Discharge Information Follow-up/Referrals: Raven Camacho MD [Physician] - 2 Weeks Renard Simeon MD [Physician] - 2 Weeks Discharge Medications: New hydrocodone-acetaminophen 5-325 mg tablet 1 tablet PO Q6H PRN (Reason: pain) Qty: 20 0RF amoxicillin-pot clavulanate 875-125 mg tablet 1 tablet PO Q12H Qty: 3 0RF Continued lisinopril-hydrochlorothiazide 20-12.5 mg tablet 1 tablet PO DAILY multivitamin Tablet 1 tablet PO DAILY Other Ambulatory Orders: Complete Blood Count with Diff (Routine) Timeframe: 1 Week Location: Determined by Patient Ordered By: Fide Orozco Comprehensive Metabolic Panel (Routine) Timeframe: 1 Week Location: Determined by Patient Ordered By: Fide Orozco Date of admission: 06/22/24 18:09 Primary Care Provider: PHYSICIAN,STERILE PROCESS TECH Admitting Provider: Parker Paez Attending physician on admission: Parker Paez Condition: Stable Quality VTE Prophylaxis VTE prophylaxis: pharmacologic ordered Hospitalist MIPS Heart Failure (Exclusion) Patient has history of Heart Transplant or Left Ventricular Assistive Device?: No IF YES, STOP HERE Heart Failure (Qualifier) Patient has current or prior documentation of LVEF less than or equal to 40%, or mod/servere depressed LVSF?: No IF NO, STOP HERE
== END 2024-06-29 15:29 | disposition home or self-care (01) | DRG 418 ==
LOC: ANHED 06-22 18:18 → ANH2MED 06-22 18:29
PROVIDERS: Internal Medicine; Physician Assistant; Student in an Organized Health Care Education/Training Program; Surgery; Admitting Provider Internal Medicine; Emergency Provider Student in an Organized Health Care Education/Training Program; Visit Provider Nurse Practitioner
PROC: 0FT44ZZ Resection of Gallbladder, Percutaneous Endoscopic Approach (ICD-10-PCS; CPT 47562; principal; 2024-06-27 07:30)
DX: K85.90 Acute pancreatitis without necrosis or infection, unspecified (principal); R65.10 Systemic inflammatory response syndrome (SIRS) of non-infectious origin without acute organ dysfunction; K85.10 Biliary acute pancreatitis without necrosis or infection; K81.9 Cholecystitis, unspecified; K29.70 Gastritis, unspecified, without bleeding; K20.90 Esophagitis, unspecified without bleeding; I10 Essential (primary) hypertension; G47.33 Obstructive sleep apnea (adult) (pediatric); E87.6 Hypokalemia; E86.0 Dehydration; K21.9 Gastro-esophageal reflux disease without esophagitis; E78.5 Hyperlipidemia, unspecified; Z20.822 Contact with and (suspected) exposure to COVID-19; L30.9 Dermatitis, unspecified; D72.829 Elevated white blood cell count, unspecified
CPT/HCPCS: 36415; 74177; 74183; 76376; 76705; 80053; 80074; 80076; 81001; 82140; 82248; 82607; 82728; 82746; 82977; 83540; 83550; 83690; 83735; 84132; 84145; 84443; 84478; 85025; 85027; 85610; 85730; 86140; 87040; 87637; 88304; 93005; 96361; 96365; 96375; 99285; A9270; A9577; J0330; J1100; J1650; J2003; J2250; J2270; J2405; J2470; J2543; J2704; J3010; J3480; J7030; J7040; J7120; Q9967